=== PATIENT | female | born 1950 | race Caucasian/White ===

== ENCOUNTER 2017-10-19 16:41 | Emergency (ER) | payer OTHER ==
--- NOTE | 2017-10-19 17:55 | RAD REPORT ---
EXAM DESCRIPTION: RAD - Chest Single View - 10/19/2017 5:36 pm CLINICAL HISTORY: Hypertension COMPARISON: 04/20/2016 FINDINGS: Portable technique limits examination quality. The lungs are mildly emphysematous but grossly clear. The heart is upper limit of normal in size. No displaced fractures. IMPRESSION: No acute intrathoracic process suspected.
[2017-10-19 18:00] LABS: Absolute Lymphocytes (CBC) 1.8 K/uL (0.7-4.9); Absolute Monocytes 0.5 K/uL (0.1-1.3); Absolute Neutrophil 3.9 K/uL (1.8-8.0); Basophils % 0.9 % (0-1.3); Eosinophils % 3.4 % (0-4.4); Hematocrit 35.5 % (36.0-45.0); Lymphocytes % 27.7 % (15.3-44.8); MCH 24.9 pg (27.0-35.0); MCV 77.7 fL (80-100); MPV 8.8 fL (7.6-11.3); Monocytes % 8.3 % (3.3-12.3); RBC Red Blood Cell Count 4.57 M/uL (3.86-4.86)
[2017-10-19 18:04] LABS: Protime INR 0.99
[2017-10-19 18:11] LABS: Bicarbonate 27 mEq/L (21-31); Glucose Level 103 mg/dL (65-120); Potassium 4.2 mEq/L (3.6-5.0); Sodium Level 139 mEq/L (135-145)
[2017-10-19 18:17] LABS: ALT/SGPT 14 IU/L (10-60); AST/SGOT 22 IU/L (10-42); Albumin 4.2 g/dL (3.2-5.5); Alkaline Phosphatase 45 IU/L (42-121); BUN Blood Urea Nitrogen 21 mg/dL (6-20); Bilirubin Direct < 0.1 mg/dL (0-0.2); Bilirubin Total 0.5 mg/dL (0.3-1.2); Creatine Phosphokinase 91 IU/L (22-269); Magnesium 2.1 mg/dL (1.8-2.5); Protein, Total 7.9 g/dL (6.0-8.3)
[2017-10-19 18:20] LABS: CKMB Creatine Kinase MB 2.1 ng/ml (0.3-4.0)
--- NOTE | 2017-10-19 19:05 | EKG ---
Test Date: 2017-10-19 Test Time: 17:26:06 Records Officer: HYACINTH MEASUREMENT RESULTS: Intervals: Rate: 93 WI: 124 QRSD: 80 QT: 386 QTc: 479 Lamoni: P: 55 WI: 124 QRS: -36 T: 19 INTERPRETIVE STATEMENTS: Normal sinus rhythm Left axis deviation Minimal voltage criteria for LVH, may be normal variant Nonspecific ST abnormality Abnormal ECG Compared to ECG 04/20/2016 04:21:53 Left-axis deviation now present ST (T wave) deviation still present Electronically Signed On 10-19-17 19:05:05 CDT by Anthony Adams
[2017-10-19] MEDS ORDERED: METHYLPREDNISOLONE 125 MG INJ ONE (19:19)
[2017-10-19] MEDS ORDERED: IPRATROPIUM BROM 0.5MG/2.5ML ONE (19:19)
[2017-10-19] MEDS ORDERED: ALBUTEROL 2.5 MG/3 ML NEB SOL ONE (19:19)
[2017-10-19] MEDS ORDERED: ASPIRIN 81 MG CHEWABLE TABLET ONE (21:03)
--- NOTE | 2017-10-19 21:50 | EDPHYS ---
Physician Documentation [facility] Name: Ashley Teague Age: 67 yrs Sex: Female : 1950 Arrival Date: 10/19/2017 Time: 16:45 Bed 5 Private MD: ED Physician Rio Ledezma HPI: 10/19 17:25 This 67 yrs old Female presents to ER via Ambulatory with complaints of cp Shortness Of Breath. 17:25 The patient has shortness of breath with light activity. cp 17:25 Onset: The symptoms/episode began/occurred gradually, and became worse today. cp 17:25 Duration: The symptoms are continuous, and are steadily getting worse. Associated signs cp and symptoms: Pertinent negatives: chest pain, productive cough, diaphoresis, dizziness, fever, hemoptysis. Severity of symptoms: in the emergency department the symptoms are unchanged despite home interventions. Historical: - Allergies: 16:53 Percodan; hj 16:53 Sulfa (Sulfonamide Antibiotics); hj - Home Meds: 16:53 aspirin 81 mg Oral TbEC 1 tab once daily [Active]; atorvastatin 20 mg Oral tab 1 tab hj once daily [Active]; escitalopram oxalate 10 mg Oral tab 1 tab once daily [Active]; gabapentin 600 mg Oral tab 1 tab daily [Active]; hydrochlorothiazide 12.5 mg Oral cap 1 cap once daily [Active]; lisinopril 20 mg Oral tab 1 tab once daily [Active]; memantine 10 mg Oral tab 1 tab 2 times per day [Active]; - PMHx: 16:53 unstable HTN; hj - PSHx: 16:53 Appendectomy; left thumb joint spurs removed; 2 ganglion cyst removed from left wrist; hj Tubal ligation; two benign breast tumors removed; benign tumor to left knee; Hysterectomy; Bladder suspension; right heel calcaneal spur and release of plantar fascia; transfer of flexor digitorum longus tendon into the navicular along with tenodesis of flexor digitorum longus and posterior tibialis tendons both distal and proximal of the retinoculum; Left knee meniscus repair; right rotator cuff; right shoulder adhesions removed; left knee lateral release; 2nd right RTC, torn labrum; left knee replacement; heart cath; right knee; Lap band removed; Gastric Bypass; right cataract; - Immunization history:: Adult Immunizations up to date. - Social history:: Smoking status: Patient/guardian denies using tobacco. ROS: 17:30 Constitutional: Negative for body aches, chills, fever, poor PO intake. cp 17:30 Eyes: Negative for injury, pain, redness, and discharge, ENT: Negative for injury, cp pain, and discharge, Neck: Negative for injury, pain, and swelling, Cardiovascular: Negative for chest pain, palpitations, and edema. 17:30 Respiratory: Positive for shortness of breath, on exertion. Negative for cough, hemoptysis, wheezing. 17:30 Abdomen/GI: Negative for abdominal pain, nausea, vomiting, and diarrhea, constipation, anorexia, black/tarry stool, rectal bleeding. 17:30 Back: Negative for pain at rest, pain with movement, radiated pain. 17:30 : Negative for urinary symptoms. 17:30 MS/extremity: Negative for injury or acute deformity, paresthesias, swelling, tenderness. 17:30 Skin: Negative for cellulitis, rash. 17:30 Neuro: Negative for altered mental status, headache, syncope, near syncope, weakness. 17:30 All other systems are negative. Exam: 17:33 ECG was reviewed by the Attending Physician. cp 17:35 Head/Face: Normocephalic, atraumatic. Eyes: Pupils equal round and reactive to light, cp extra-ocular motions intact. Lids and lashes normal. Conjunctiva and sclera are non-icteric and not injected. Cornea within normal limits. Periorbital areas with no swelling, redness, or edema. ENT: Nares patent. No nasal discharge, no septal abnormalities noted. Tympanic membranes are normal and external auditory canals are clear. Oropharynx with no redness, swelling, or masses, exudates, or evidence of obstruction, uvula midline. Mucous membranes moist. Neck: Trachea midline, no thyromegaly or masses palpated, and no cervical lymphadenopathy. Supple, full range of motion without nuchal rigidity, or vertebral point tenderness. No Meningismus. Chest/axilla: Normal chest wall appearance and motion. Nontender with no deformity. No lesions are appreciated. 17:35 Constitutional: The patient appears in no acute distress, alert, awake, non-diaphoretic, non-toxic, well developed, well nourished, obese. 17:35 Cardiovascular: Rate: normal, Rhythm: regular, Pulses: Pulses are 2+ in right radial artery and left radial artery. Edema: is not appreciated, JVD: is not appreciated. 17:35 Respiratory: the patient does not display signs of respiratory distress, Respirations: labored breathing, is not present, intercostal retractions, are absent, shallow respirations, are not present, splinting, is not noted, tachypnea, is not appreciated, Breath sounds: decreased breath sounds, that are mild, throughout, stridor, is not appreciated, wheezing: is not appreciated. 17:35 Abdomen/GI: Inspection: obese Bowel sounds: active, all quadrants, Palpation: abdomen is soft and non-tender, in all quadrants, rebound tenderness, is not appreciated, voluntary guarding, is not appreciated, involuntary guarding, is not appreciated. 17:35 Back: pain, is absent, ROM is normal. 17:35 Musculoskeletal/extremity: Exam is negative for decreased range of motion, deformity, injury. 17:35 Skin: cellulitis, is not appreciated, no rash present. 17:35 Neuro: Orientation: to person, place \T\ time. Cerebellar function: is grossly normal, Motor: moves all fours, strength is normal, Sensation: no obvious gross deficits, Gait: is steady. Vital Signs: 16:54 BP 136 / 55; Pulse 99; Resp 18; Temp 98.4(TE); Pulse Ox 100% on R/A; Weight 108.86 kg; hj Height 5 ft. 8 in. (172.72 cm); 17:30 BP 136 / 73; Pulse 91; Resp 18 S; Pulse Ox 100% on R/A; jl7 18:14 BP 128 / 64; Pulse 88; Resp 17 S; Pulse Ox 100% on R/A; jl7 19:15 BP 131 / 63; Pulse 89; Pulse Ox 100% on R/A; Pain 0/10; bs1 19:56 BP 129 / 65; Pulse 103; Pulse Ox 100% on 5% Nebulizer Mask; bs1 20:09 Pulse 106; Pulse Ox 100% on R/A; cb2 20:12 Pulse 132; Pulse Ox 100% on R/A; cb2 20:15 BP 154 / 84 RA Sitting (auto/lg); Pulse 122 LA; Resp 20 S; Pulse Ox 100% ; cb2 21:45 BP 137 / 90; Pulse 103; Resp 17; Pulse Ox 99% on R/A; Pain 0/10; bs1 16:54 Body Mass Index 36.49 (108.86 kg, 172.72 cm) hj 20:12 pt walking in hallway cb2 MDM: 17:02 Patient medically screened. cp 18:00 Differential diagnosis: Anemia CHF exacerbation, Chronic Obstructive Pulmonary Disease cp Myocardial Infarction pulmonary edema, Pulmonary Embolism reactive airway disease, Unstable Angina. 20:40 Physician consultation: Ene Boswell MD was contacted at 20:40, regarding admission, cp patient's condition, and will see patient in ED, shortly. 20:57 ED course: VSS. Patient seen and evaluated by DR De La Rosa while in ED and felt stable cp for discharge with outpatient f/u with primary physician. Will recheck EKG and troponin and if negative discharge to home. 21:50 Data reviewed: vital signs, nurses notes, lab test result(s), EKG, radiologic studies, cp plain films, and as a result, I will discharge patient. 04 17:25 Order name: Basic Metabolic Panel; Complete Time: 18:46 cp 04/05 18:46 Interpretation: Normal except: BUN 21; CRE 1.41; GFR 37. cp / 17:25 Order name: BNP; Complete Time: 18:46 cp 0405 17:25 Order name: CBC with Diff; Complete Time: 18:46 cp 04/05 18:46 Interpretation: Normal except: HGB 11.4; HCT 35.5; MCV 77.7; MCH 24.9; RDW 17.4. cp 04/05 17:25 Order name: Ckmb; Complete Time: 18:46 cp 04/05 17:25 Order name: CPK; Complete Time: 18:46 cp 04/05 17:25 Order name: LFT's; Complete Time: 18:46 cp 04/05 18:48 Interpretation: Normal except: GLOB 3.7. cp /05 17:25 Order name: Magnesium; Complete Time: 18:46 cp 04/05 17:25 Order name: PT-INR; Complete Time: 18:46 cp 04/05 17:25 Order name: Ptt, Activated; Complete Time: 18:46 cp 04/05 17:25 Order name: Troponin (emerg Dept Use Only); Complete Time: 18:46 cp 04/ 17:25 Order name: XRAY Chest (1 view); Complete Time: 18:46 cp 10/19 18:47 Interpretation: Report review. cp 10/19 20:59 Order name: Troponin I; Complete Time: 21:49 cp 10/19 21:49 Interpretation: Reviewed. cp 10/19 17:25 Order name: EKG; Complete Time: 17:26 cp 10/19 17:25 Order name: Cardiac monitoring; Complete Time: 17:32 cp 10/19 17:25 Order name: EKG - Nurse/Tech; Complete Time: 17:32 cp 10/19 17:25 Order name: IV Saline Lock; Complete Time: 17:53 cp 10/19 17:25 Order name: Labs collected and sent; Complete Time: 17:53 cp 10/19 17:25 Order name: O2 Per Protocol; Complete Time: 17:32 cp 10/19 17:25 Order name: O2 Sat Monitoring; Complete Time: 17:32 cp 10/19 20:59 Order name: EKG; Complete Time: 20:59 cp 10/19 20:59 Order name: EKG - Nurse/Tech; Complete Time: 21:34 cp EC:33 Rate is 93 beats/min. Rhythm is regular. IA interval is normal. QRS interval is normal. cp QT interval is normal. Interpreted by me. Reviewed by me. Administered Medications: 19:05 Drug: Albuterol - atroVENT (3:1) (2.5 mg - 0.5 mg) 3 ml Route: Nebulizer; jl7 20:00 Follow up: Response: No adverse reaction bs1 19:06 Drug: SOLU-Medrol 125 mg Route: IVP; Site: left forearm; jl7 19:59 Follow up: Response: No adverse reaction bs1 20:48 Drug: Aspirin Chewable Tablet 324 mg Route: PO; bs1 20:52 Follow up: Response: No adverse reaction bs1 Disposition: 10/20 10:36 Co-signature as Attending Physician, Rio Ledezma MD I agree with the assessment and izzy plan of care. Disposition: 10/19/17 21:50 Discharged to Home. Impression: Shortness of breath. - Condition is Stable. - Discharge Instructions: Shortness of Breath, Aspirin and Your Heart. - Prescriptions for Prednisone 20 mg Oral Tablet - take 2 tablet by ORAL route once daily for 5 days start morning of 10-20-2017; 10 tablet. Albuterol Sulfate 90 mcg/actuation - inhale 1-2 puff by INHALATION route every 4-6 hours; 1 Inhaler. - Medication Reconciliation Form, Thank You Letter, Antibiotic Education, Prescription Opioid Use form. - Follow up: Private Physician; When: 2 - 3 days; Reason: Recheck today's complaints. - Problem is new. - Symptoms have improved. Signatures: Dispatcher [employer] EDRio Sow MD MD cha Joaquin, Henry RN RN hj Rio Eddy PA PA cp Leal, Jahala RN RN jl7 Bibiana Olsen RN RN bs1
--- NOTE | 2017-10-19 21:50 | ER ---
Nurse's Notes [facility] Name: Ashley Teague Age: 67 yrs Sex: Female : 1950 Arrival Date: 10/19/2017 Time: 16:45 Bed 5 Private MD: Diagnosis: Shortness of breath Presentation: 10/19 16:50 Presenting complaint: Patient states: i fell SOB, headache, specially when i walk 5 hj feet; denies fever and chills;. Transition of care: patient was not received from another setting of care. Onset of symptoms was October 19, 2017. Care prior to arrival: None. 16:50 Method Of Arrival: Ambulatory 16:50 Acuity: SANTIAGO 3 hj Triage Assessment: 16:53 General: Appears in no apparent distress. uncomfortable, Behavior is calm, cooperative, hj appropriate for age. Pain: Denies pain. Respiratory: Reports shortness of breath on exertion Onset: The symptoms/episode began/occurred yesterday, the patient has moderate shortness of breath. Historical: - Allergies: 16:53 Percodan; hj 16:53 Sulfa (Sulfonamide Antibiotics); hj - Home Meds: 16:53 aspirin 81 mg Oral TbEC 1 tab once daily [Active]; atorvastatin 20 mg Oral tab 1 tab hj once daily [Active]; escitalopram oxalate 10 mg Oral tab 1 tab once daily [Active]; gabapentin 600 mg Oral tab 1 tab daily [Active]; hydrochlorothiazide 12.5 mg Oral cap 1 cap once daily [Active]; lisinopril 20 mg Oral tab 1 tab once daily [Active]; memantine 10 mg Oral tab 1 tab 2 times per day [Active]; - PMHx: 16:53 unstable HTN; hj - PSHx: 16:53 Appendectomy; left thumb joint spurs removed; 2 ganglion cyst removed from left wrist; hj Tubal ligation; two benign breast tumors removed; benign tumor to left knee; Hysterectomy; Bladder suspension; right heel calcaneal spur and release of plantar fascia; transfer of flexor digitorum longus tendon into the navicular along with tenodesis of flexor digitorum longus and posterior tibialis tendons both distal and proximal of the retinoculum; Left knee meniscus repair; right rotator cuff; right shoulder adhesions removed; left knee lateral release; 2nd right RTC, torn labrum; left knee replacement; heart cath; right knee; Lap band removed; Gastric Bypass; right cataract; - Immunization history:: Adult Immunizations up to date. - Social history:: Smoking status: Patient/guardian denies using tobacco. Screenin:15 Abuse screen: Denies threats or abuse. Denies injuries from another. Nutritional jl7 screening: No deficits noted. Tuberculosis screening: No symptoms or risk factors identified. 19:42 Fall Risk None identified. bs1 Assessment: 16:53 Cardiovascular: Rhythm is. Respiratory: Airway is patent Respiratory effort is even, hj unlabored, Respiratory pattern is regular, symmetrical, 17:15 General: Appears in no apparent distress. uncomfortable, Behavior is calm, cooperative, jl7 appropriate for age. Pain: Complains of pain in headache Pain does not radiate. Pain currently is 5 out of 10 on a pain scale. at worst was 9 out of 10 on a pain scale. Quality of pain is described as aching, Pain began 1 day ago. Is intermittent. Neuro: Level of Consciousness is awake, alert, obeys commands, Oriented to person, place, time, situation. Cardiovascular: Heart tones S1 S2 present Patient's skin is warm and dry. Respiratory: Airway is patent Respiratory effort is even, labored, Respiratory pattern is symmetrical, tachypnea Breath sounds are clear bilaterally. the patient has moderate shortness of breath. GI: No signs and/or symptoms were reported involving the gastrointestinal system. : No signs and/or symptoms were reported regarding the genitourinary system. EENT: No signs and/or symptoms were reported regarding the EENT system. Derm: Skin is pink, warm \\T\\ dry. Musculoskeletal: No signs and/or symptoms reported regarding the musculoskeletal system. 19:00 General: Appears in no apparent distress. uncomfortable, Behavior is calm, cooperative, bs1 appropriate for age, flat. Pain: Complains of pain in headache Pain does not radiate. Pain currently is 4 out of 10 on a pain scale. Quality of pain is described as aching. Neuro: Level of Consciousness is awake, alert, obeys commands. Cardiovascular: Denies chest pain, Heart tones S1 S2 present Capillary refill < 3 seconds Patient's skin is warm and dry. Cardiovascular: Rhythm is regular. Cardiovascular: Denies Respiratory: Airway is patent Trachea midline Respiratory effort is even, unlabored, Respiratory pattern is regular, symmetrical, Breath sounds are clear bilaterally. GI: No signs and/or symptoms were reported involving the gastrointestinal system. : No signs and/or symptoms were reported regarding the genitourinary system. EENT: No signs and/or symptoms were reported regarding the EENT system. Derm: Skin is pink, warm \\T\\ dry. Musculoskeletal: No signs and/or symptoms reported regarding the musculoskeletal system. 20:00 Reassessment: Patient appears in no apparent distress at this time. No changes from bs1 previously documented assessment. Patient and/or family updated on plan of care and expected duration. Pain level reassessed. Patient is alert, oriented x 3, equal unlabored respirations, skin warm/dry/pink. Patient reports feeling upset, states " I do not believe the provider is taking me seriously, he interrupts me and is not listening to me, he needs to work on his bedside manner, I made a mistake coming here." Nurse reassured patient that we are waiting on more results and making sure she is stable and that I am here to talk if need be. 21:00 Reassessment: Patient appears in no apparent distress at this time. No changes from bs1 previously documented assessment. Patient and/or family updated on plan of care and expected duration. Pain level reassessed. Patient is alert, oriented x 3, equal unlabored respirations, skin warm/dry/pink. 21:50 Reassessment: No changes from previously documented assessment. Patient and/or family bs1 updated on plan of care and expected duration. Pain level reassessed. Patient is alert, oriented x 3, equal unlabored respirations, skin warm/dry/pink. Vital Signs: 16:54 BP 136 / 55; Pulse 99; Resp 18; Temp 98.4(TE); Pulse Ox 100% on R/A; Weight 108.86 kg; Height 5 ft. 8 in. (172.72 cm); 17:30 BP 136 / 73; Pulse 91; Resp 18 S; Pulse Ox 100% on R/A; jl7 18:14 BP 128 / 64; Pulse 88; Resp 17 S; Pulse Ox 100% on R/A; jl7 19:15 BP 131 / 63; Pulse 89; Pulse Ox 100% on R/A; Pain 0/10; bs1 19:56 BP 129 / 65; Pulse 103; Pulse Ox 100% on 5% Nebulizer Mask; bs1 20:09 Pulse 106; Pulse Ox 100% on R/A; cb2 20:12 Pulse 132; Pulse Ox 100% on R/A; cb2 20:15 BP 154 / 84 RA Sitting (auto/lg); Pulse 122 LA; Resp 20 S; Pulse Ox 100% ; cb2 21:45 BP 137 / 90; Pulse 103; Resp 17; Pulse Ox 99% on R/A; Pain 0/10; bs1 16:54 Body Mass Index 36.49 (108.86 kg, 172.72 cm) hj 20:12 pt walking in hallway [facility] ED Course: 16:45 Patient arrived in ED. rg4 16:51 Triage completed. hj 16:54 Arm band placed on left wrist. hj 17:02 Roni Garibay RN is Primary Nurse. jl7 17:02 Rio Eddy PA is PHCP. cp 17:02 Rio Ledezma MD is Attending Physician. cp 17:15 Patient has correct armband on for positive identification. Placed in gown. Bed in low jl7 position. Call light in reach. Side rails up X 1. conveyor monitor on. Pulse ox on. NIBP on. Warm blanket given. 17:32 EKG done, by on site wastewater systems technician. reviewed by Rio Ledezma MD. at1 17:35 X-ray completed. Portable x-ray completed in exam room. Patient tolerated procedure sw well. 17:36 XRAY Chest (1 view) In Process Unspecified. EDMS 17:40 Initial lab(s) drawn, by me, sent to lab. Inserted saline lock: 20 gauge in left jl7 forearm, using aseptic technique. Blood collected. 19:10 Report given to AV Mccarty. jl7 21:04 Repeat lab(s) drawn. by me, sent to lab. Troponin. bs1 22:05 No provider procedures requiring assistance completed. IV discontinued, bleeding bs1 controlled, No redness/swelling at site. Pressure dressing applied. Administered Medications: 19:05 Drug: Albuterol - atroVENT (3:1) (2.5 mg - 0.5 mg) 3 ml Route: Nebulizer; jl7 20:00 Follow up: Response: No adverse reaction bs1 19:06 Drug: SOLU-Medrol 125 mg Route: IVP; Site: left forearm; jl7 19:59 Follow up: Response: No adverse reaction bs1 20:48 Drug: Aspirin Chewable Tablet 324 mg Route: PO; bs1 20:52 Follow up: Response: No adverse reaction bs1 Outcome: 21:50 Discharge ordered by . cp 22:05 Discharged to home ambulatory. bs1 22:05 Condition: stable 22:05 Discharge instructions given to patient, Instructed on discharge instructions, follow up and referral plans. medication usage, Demonstrated understanding of instructions, follow-up care, medications, Prescriptions given X 2. 22:06 Patient left the ED. bs1 Signatures: Dispatcher [employer] EDMS Isatu sullivan, electrolog operator EKG Tat1 Anika Abebe Henry, RN RN Rio Eddy PA PA cp Garcia, Rubi rg4 Roni Garibay RN RN jl7 Michael Pinto Brittany, RN RN bs1 Corrections: (The following items were deleted from the chart) 16:56 16:54 Pulse 99bpm; Resp 18bpm; Pulse Ox 100% RA; Temp 98.4F Temporal; 108.86 kg; Height hj 5 ft. 8 in.; BMI: 36.4; hj 19:06 19:06 SOLU-Medrol 125 mg IVP in left antecubital jl7 jl7
--- NOTE | 2017-10-19 21:56 | P.CNS ---
Date of Consult: 10/19/17 Reason for Consult: dyspnea Requesting Physician: Rio Eddy Chief Complaint: progressing dyspnea History of Present Illness: Ms Abdi is a 67 years old woman with history of pulmonary HTN, obesity s/p gastric by-pass surgery, sleep apnea, who come to ED complaining of SOB. She states that since yesterday noticed more SOB with activity. She denied fever or chills. She has no more cough than usual. No chest pain. Her SOB improves when she rest. At arrival, her O2 Sat was 100% on RA, afebrile, lab work shows normal WBC count. CXR shows no acute abonormalities. Allergies oxycodone Allergy (Severe, Verified 06/07/15 19:13) Anaphylaxis oxycodone HCl [From Percodan] Allergy (Severe, Verified 05/18/14 23:09) Anaphylaxis oxycodone terephthalate [From Percodan] Allergy (Severe, Verified 05/18/14 23:09 ) Anaphylaxis Sulfa (Sulfonamide Antibiotics) [Sulfa(Sulfonamide Antibiotics)] Allergy (Mild, Verified 05/18/14 23:09) Hives/Rash Home Medications: Folic Acid 1 mg PO DAILY #30 tablet 05/21/14 Doxazosin [Cardura*] 0.5 mg PO DAILY #15 tab 06/09/15 - Past Medical/Surgical History Diabetic: No -: pulmonary hypertension -: peptic ulcer disease -: sleep apnea -: valve regurgitation -: deformed right kidney -: heel spur, 7knee surgeries with 3 of them knee replacements. -: appendectomy, BTL, hysterectomy. -: right ankle tendon reconstruction -: heart cath. -: right cataract surgery 01/2014 -: gastric bypass, band surgery, swan karrie. -: 2 breast tumor removedand neck1 lymph node removed, all benign -: mouth surgery - Family History Mother Medical History: Heart disease, Hypertension, Cancer Notes: phlebitis - Social History Alcohol use: Yes CD- Drugs: No Caffeine use: Yes Place of Residence: Home Review of Systems 10-point ROS is otherwise unremarkable Physical Examination General: Alert, In no apparent distress HEENT: Atraumatic, PERRLA, Mucous membr. moist/pink, EOMI, Sclerae nonicteric Neck: Supple, 2+ carotid pulse no bruit, No LAD, Without JVD or thyroid abnormality Respiratory: Clear to auscultation bilaterally, Normal air movement Cardiovascular: Normal S1 S2, No gallops Gastrointestinal: Normal bowel sounds, No tenderness Musculoskeletal: No tenderness Integumentary: No rashes Neurological: Normal gait, Normal speech, Normal tone, Normal affect Lymphatics: No axilla or inguinal lymphadenopathy Laboratory Data (last 24 hrs) 10/19/17 21:04: Troponin I < 0.03 10/19/17 17:40: PT 11.7, INR 0.99, APTT 28.2 10/19/17 17:40: WBC 6.6, Hgb 11.4 L, Hct 35.5 L, Plt Count 331 10/19/17 17:40: B-Natriuretic Peptide 14 10/19/17 17:40: Sodium 139, Potassium 4.2, BUN 21 H, Creatinine 1.41 H, Glucose 103, Magnesium 2.1, Total Bilirubin 0.5, AST 22, ALT 14, Alkaline Phosphatase 45 - Problems (1) Dyspnea Current Visit: Yes Status: Acute Qualifiers: Dyspnea type: dyspnea on exertion Qualified Code(s): R06.09 - Other forms of dyspnea (2) Pulmonary HTN Current Visit: Yes Status: Chronic Conclusions/Impression: The patient has normal WBC, trop I negative x 2, no acute infiltrates on CXR, no fever, at physical exam her lungs sound clear. At this point, the patient will not benefit from a hospital admission, since there is no evidence of an acute illnes to treat. I recommend to discharge the patient home and let her follow up by her foam caster in [place], within 1-2 days.
[2017-10-19 22:11] VITALS: TEMP 98.4; O2SAT 100
[2017-10-19 22:18] VITALS: BP 154/84
--- NOTE | 2017-10-20 06:31 | EKG ---
Test Date: 2017-10-19 Test Time: 21:11:36 Show Operations Supervisor: CAROLEE MEASUREMENT RESULTS: Intervals: Rate: 107 RI: 134 QRSD: 84 QT: 370 QTc: 493 [place]: P: 48 RI: 134 QRS: -47 T: 42 INTERPRETIVE STATEMENTS: Sinus tachycardia with occasional premature ventricular complexes Left anterior fascicular block Minimal voltage criteria for LVH, may be normal variant Nonspecific ST and T wave abnormality Abnormal ECG Compared to ECG 10/19/2017 17:26:06 Ventricular premature complex(es) now present Left anterior fascicular block now present Sinus rhythm no longer present Left-axis deviation no longer present ST (T wave) deviation still present Electronically Signed On 10-20-17 06:31:04 CDT by Anthony Adams
== END 2017-10-19 22:06 | disposition home or self-care (01) ==
LOC: ER 16:41
DX: R06.02 Shortness of breath (principal); R06.09 Other forms of dyspnea; I10 Essential (primary) hypertension; Z79.82 Long term (current) use of aspirin; Z88.2 Allergy status to sulfonamides; Z88.5 Allergy status to narcotic agent; Z98.84 Bariatric surgery status
CPT/HCPCS: 36415; 71045; 80048; 80076; 82550; 82553; 83735; 83880; 84484 ×2; 85025; 85610; 85730; 93005 ×2; 94640; 96374; 99285; J2930

== ENCOUNTER 2018-03-03 15:51 | Emergency (ER) | payer OTHER ==
[2018-03-03 17:18] LABS: Protime INR 0.93
[2018-03-03 17:19] LABS: Absolute Lymphocytes (CBC) 2.1 K/uL (0.7-4.9); Absolute Monocytes 0.5 K/uL (0.1-1.3); Eosinophils % 4.5 % (0-4.4); Hematocrit 35.8 % (36.0-45.0); Lymphocytes % 29.9 % (15.3-44.8); MCH 25.2 pg (27.0-35.0); MCV 77.4 fL (80-100); MPV 8.8 fL (7.6-11.3); Monocytes % 7.3 % (3.3-12.3); RBC Red Blood Cell Count 4.63 M/uL (3.86-4.86)
--- NOTE | 2018-03-03 17:23 | RAD REPORT ---
EXAM DESCRIPTION: [place] Single View03/03/2018 5:05 pm CLINICAL HISTORY: Shortness of breath COMPARISON: October 2017 FINDINGS: The lungs appear clear of acute infiltrate. The heart is borderline enlarged IMPRESSION: No acute abnormalities displayed
--- NOTE | 2018-03-03 17:23 | RAD REPORT ---
EXAM DESCRIPTION: CT - Head Brain Wo Cont - 03/03/2018 4:59 pm CLINICAL HISTORY: Headache COMPARISON: 2014 TECHNIQUE: Computed axial tomography of the head was obtained. IV contrast was not requested. All CT scans are performed using dose optimization technique as appropriate and may include automated exposure control or mA/KV adjustment according to patient size. FINDINGS: An intracranial bleed is not seen . The ventricles are normal in caliber. No extra-axial fluid collection is noted. Fluid within the sinuses/ mastoids is not seen. IMPRESSION: No acute intracranial abnormality is seen. If patient's symptoms persist MRI of the bra in would be recommended.
[2018-03-03 17:31] LABS: ALT/SGPT 18 U/L (12-78); AST/SGOT 20 U/L (15-37); Albumin 3.7 g/dL (3.4-5.0); Alkaline Phosphatase 54 U/L (45-117); BUN Blood Urea Nitrogen 19 mg/dL (7-18); Bicarbonate 31 mmol/L (21-32); Bilirubin Direct < 0.1 mg/dL (0-0.2); Bilirubin Total 0.3 mg/dL (0.2-1.0); Glucose Level 85 mg/dL (74-106); Magnesium 2.2 mg/dL (1.8-2.4); NT PRO-BNP 60 pg/mL (<125); Potassium 3.7 mmol/L (3.5-5.1); Protein, Total 8.1 g/dL (6.4-8.2); Sodium Level 140 mmol/L (136-145)
[2018-03-03] MEDS ORDERED: DIPHENHYDRAMINE 50 MG/ML VIAL ONE (17:36)
[2018-03-03] MEDS ORDERED: METOCLOPRAMIDE 10 MG/2mL INJ ONE (17:36)
[2018-03-03] MEDS ORDERED: KETOROLAC 30 MG/ML INJ ONE (17:37)
--- NOTE | 2018-03-03 18:11 | EDPHYS ---
Physician Documentation [facility] Name: Ashley Teague Age: 67 yrs Sex: Female : 1950 Arrival Date: 03/03/2018 Time: 15:55 Bed 20 Private MD: Kay Dudley ED Physician Johnny Hackett HPI: 03/03 18:00 This 67 yrs old Female presents to ER via Ambulatory with complaints of gs Weakness. 18:00 The patient presents to the emergency department with weakness of the entire body, gs generalized weakness. Onset: The symptoms/episode began/occurred suddenly, this morning, at 09:00. Context: occurred at home. Associated signs and symptoms: Pertinent positives: headache, weakness, [place] throbbing not worse ever.. Severity of symptoms: At their worst the symptoms were moderate in the emergency department the symptoms have improved markedly. The patient has experienced similar episodes in the past, a few times. The patient has not recently seen a physician. Historical: - Allergies: 16:14 Percodan; aj 16:14 Sulfa (Sulfonamide Antibiotics); aj - Home Meds: 16:14 aspirin 81 mg Oral TbEC 1 tab once daily [Active]; atorvastatin 20 mg Oral tab 1 tab aj once daily [Active]; escitalopram oxalate 10 mg Oral tab 1 tab once daily [Active]; gabapentin 600 mg Oral tab 1 tab daily [Active]; hydrochlorothiazide 12.5 mg Oral cap 1 cap once daily [Active]; lisinopril 20 mg Oral tab 1 tab once daily [Active]; 16:16 Magnesium Oxide Oral [Active]; aj - PMHx: 16:14 CVA; Hypertension; Vascular Dementia; aj 16:16 SVT; aj - PSHx: 16:16 Appendectomy; left thumb joint spurs removed; 2 ganglion cyst removed from left wrist; aj Tubal ligation; two benign breast tumors removed; benign tumor to left knee; Hysterectomy; Bladder suspension; right heel calcaneal spur and release of plantar fascia; transfer of flexor digitorum longus tendon into the navicular along with tenodesis of flexor digitorum longus and posterior tibialis tendons both distal and proximal of the retinoculum; Left knee meniscus repair; right rotator cuff; right shoulder adhesions removed; left knee lateral release; 2nd right RTC, torn labrum; left knee replacement; heart cath; right knee; Lap band removed; Gastric Bypass; right cataract; - Immunization history:: Adult Immunizations up to date. - Social history:: Smoking status: Patient/guardian denies using tobacco. - Ebola Screening: : Patient negative for fever greater than or equal to 101.5 degrees Fahrenheit, and additional compatible Ebola Virus Disease symptoms Patient denies exposure to infectious person Patient denies travel to an Ebola-affected area in the 21 days before illness onset No symptoms or risks identified at this time. ROS: 18:00 All other systems are negative. gs Exam: 18:00 Head/Face: Normocephalic, atraumatic. Eyes: Pupils equal round and reactive to light, gs extra-ocular motions intact. Lids and lashes normal. Conjunctiva and sclera are non-icteric and not injected. Cornea within normal limits. Periorbital areas with no swelling, redness, or edema. ENT: Nares patent. No nasal discharge, no septal abnormalities noted. Tympanic membranes are normal and external auditory canals are clear. Oropharynx with no redness, swelling, or masses, exudates, or evidence of obstruction, uvula midline. Mucous membranes moist. Neck: Trachea midline, no thyromegaly or masses palpated, and no cervical lymphadenopathy. Supple, full range of motion without nuchal rigidity, or vertebral point tenderness. No Meningismus. Chest/axilla: Normal chest wall appearance and motion. Nontender with no deformity. No lesions are appreciated. Cardiovascular: Regular rate and rhythm with a normal S1 and S2. No gallops, murmurs, or rubs. Normal PMI, no JVD. No pulse deficits. Respiratory: Lungs have equal breath sounds bilaterally, clear to auscultation and percussion. No rales, rhonchi or wheezes noted. No increased work of breathing, no retractions or nasal flaring. Abdomen/GI: Soft, non-tender, with normal bowel sounds. No distension or tympany. No guarding or rebound. No evidence of tenderness throughout. Back: No spinal tenderness. No costovertebral tenderness. Full range of motion. Skin: Warm, dry with normal turgor. Normal color with no rashes, no lesions, and no evidence of cellulitis. MS/ Extremity: Pulses equal, no cyanosis. Neurovascular intact. Full, normal range of motion. 18:00 Constitutional: The patient appears alert, awake. 18:00 ECG was reviewed by the Attending Physician. 18:00 Neuro: Orientation: is normal, Cranial nerves: CN II- XII are normal as tested, Cerebellar function: normal finger to nose testing, Motor: moves all fours, strength is normal, Sensation: is normal, no obvious gross deficits, Gait: is steady. Vital Signs: 16:17 BP 142 / 65; Pulse 96; Resp 18; Temp 98.4; Pulse Ox 100% on R/A; Weight 113.4 kg; aj Height 5 ft. 6 in. (167.64 cm); 17:16 BP 138 / 50; Pulse 85; Resp 16; Pulse Ox 97% on R/A; Pain 6/10; em 18:13 BP 137 / 71; Pulse 84; Resp 16; Pulse Ox 100% on R/A; Pain 3/10; em 16:17 Body Mass Index 40.35 (113.40 kg, 167.64 cm) aj NIH Stroke Scale Scores: 16:28 NIHSS Score: 0 em 16:28 NIHSS Score: 0 em 18:00 NIHSS Score: 0 gs MDM: 16:32 Patient medically screened. 18:00 Data reviewed: vital signs, nurses notes. Response to treatment: the patient's symptoms gs have resolved after treatment, and as a result, I will discharge patient. Physician consultation: Nicolas Chandra MD regarding consult, patient's condition, need to evaluate the patient as soon as possible, and will see patient Monday in office. ED course: ddx-cva,tia,gen weakness,migraine, complex migraine. 18:11 ED course: offered admission, dr chandra would see in hospital if she wanted to stay and would get eeg and mri on Monday, pt says symptoms resolve will go home. 03/03 16:35 Order name: Basic Metabolic Panel; Complete Time: 17:33 03/03 16:35 Order name: CBC with Diff; Complete Time: 17:33 03/03 16:35 Order name: LFT's; Complete Time: 17:33 03/03 16:35 Order name: Magnesium; Complete Time: 17:33 03/03 16:35 Order name: NT PRO-BNP; Complete Time: 17:33 03/03 16:35 Order name: PT-INR; Complete Time: 17:33 03/03 16:35 Order name: Troponin (emerg Dept Use Only); Complete Time: 17:33 gs 03/03 16:35 Order name: XRAY Chest (1 view); Complete Time: 17:33 gs 03/03 16:35 Order name: EKG; Complete Time: 16:36 gs 03/03 16:35 Order name: Cardiac monitoring; Complete Time: 16:51 gs 03/03 16:35 Order name: CT Head Brain wo Cont; Complete Time: 17:33 gs 03/03 16:35 Order name: EKG - Nurse/Tech; Complete Time: 16:51 gs 03/03 16:35 Order name: IV Saline Lock; Complete Time: 16:51 gs 03/03 16:35 Order name: Labs collected and sent; Complete Time: 16:51 gs 03/03 16:35 Order name: O2 Per Protocol; Complete Time: 16:51 gs 03/03 16:35 Order name: O2 Sat Monitoring; Complete Time: 16:51 gs 03/03 16:35 Order name: Urine Dipstick-Ancillary (obtain specimen); Complete Time: 18:13 gs EC:00 Rate is 89 beats/min. Rhythm is regular. NM interval is normal. QRS interval is normal. gs QT interval is normal. T waves are Flattened. No ST changes noted. Clinical impression: NSR w/ Non-specific ST/T Changes. Interpreted by me. Administered Medications: 17:38 Drug: Reglan 5 mg Route: IVP; Site: right forearm; aa5 18:13 Follow up: Response: No adverse reaction em 17:40 Drug: Benadryl 25 mg Route: IVP; Site: right forearm; aa5 18:13 Follow up: Response: No adverse reaction em 17:40 Drug: TORadol 15 mg Route: IVP; Site: right forearm; aa5 18:13 Follow up: Response: No adverse reaction; Pain is decreased em Point of Care Testing: Blood Glucose: 17:16 Blood Glucose: 72 mg/dL; em Ranges: Critical Glucose Levels:Adult <50 mg/dl or >400 mg/dl <40 mg/dl or >180 mg/dl Disposition: 03/03/18 18:10 Discharged to Home. Impression: Weakness, Headache. - Condition is Stable. - Discharge Instructions: General Headache Without Cause, Migraine Headache, Weakness. - Medication Reconciliation Form, Thank You Letter, Antibiotic Education, Prescription Opioid Use form. - Follow up: Nicolas Chandra MD; When: 2 - 3 days; Reason: Re-evaluation by your physician. NIH Stroke Scale - NIH Stroke Score Date: 03/03/2018 Time: 16:28 Total Score = 0 1a. Level of Consciousness (LOC) - 0(Alert) 1b. Level of Consciousness (LOC) (Year \T\ Age) - 0(Both) 1c. LOC Commands (Open \T\ Closes Eyes/Day Care Director) - 0(Both) 2. Best Gaze (Lateral Gaze Paresis) - 0(Normal) 3. Visual Field Loss - 0(No visual loss) 4. Facial Palsy - 0(Normal) 5a. Left Arm: Motor (10-second hold) - 0(No drift) 5b. Right Arm: Motor (10-second hold) - 0(No drift) 6a. Left Leg: Motor (5-second hold - always test supine) - 0(No drift) 6b. Right Leg: Motor (5-second hold - always test supine) - 0(No drift) 7. Limb Ataxia (finger/nose \T\ heel/matson - test with eyes open) - 0(Absent) 8. Sensory Loss (pinprick arms/legs/face) - 0(Normal) 9. Best Language: Aphasia (description/naming/reading) - 0(No aphasia) 10. Dysarthria (speech clarity - read or repeat words) - 0(Normal) 11. Extinction and Inattention (visual/tactile/auditory/spatial/personal) - 0(No abnormality) Initials: NIH Stroke Scale - NIH Stroke Score Date: 03/03/2018 Time: 16:28 Total Score = 0 1a. Level of Consciousness (LOC) - 0(Alert) 1b. Level of Consciousness (LOC) (Year \T\ Age) - 0(Both) 1c. LOC Commands (Open \T\ Closes Eyes/Day Care Director) - 0(Both) 2. Best Gaze (Lateral Gaze Paresis) - 0(Normal) 3. Visual Field Loss - 0(No visual loss) 4. Facial Palsy - 0(Normal) 5a. Left Arm: Motor (10-second hold) - 0(No drift) 5b. Right Arm: Motor (10-second hold) - 0(No drift) 6a. Left Leg: Motor (5-second hold - always test supine) - 0(No drift) 6b. Right Leg: Motor (5-second hold - always test supine) - 0(No drift) 7. Limb Ataxia (finger/nose \T\ heel/matson - test with eyes open) - 0(Absent) 8. Sensory Loss (pinprick arms/legs/face) - 0(Normal) 9. Best Language: Aphasia (description/naming/reading) - 0(No aphasia) 10. Dysarthria (speech clarity - read or repeat words) - 0(Normal) 11. Extinction and Inattention (visual/tactile/auditory/spatial/personal) - 0(No abnormality) Initials: NIH Stroke Scale - NIH Stroke Score Date: 03/03/2018 Time: 18:00 Total Score = 0 1a. Level of Consciousness (LOC) - 0(Alert) 1b. Level of Consciousness (LOC) (Year \T\ Age) - 0(Both) 1c. LOC Commands (Open \T\ Closes Eyes/Day Care Director) - 0(Both) 2. Best Gaze (Lateral Gaze Paresis) - 0(Normal) 3. Visual Field Loss - 0(No visual loss) 4. Facial Palsy - 0(Normal) 5a. Left Arm: Motor (10-second hold) - 0(No drift) 5b. Right Arm: Motor (10-second hold) - 0(No drift) 6a. Left Leg: Motor (5-second hold - always test supine) - 0(No drift) 6b. Right Leg: Motor (5-second hold - always test supine) - 0(No drift) 7. Limb Ataxia (finger/nose \T\ heel/matson - test with eyes open) - 0(Absent) 8. Sensory Loss (pinprick arms/legs/face) - 0(Normal) 9. Best Language: Aphasia (description/naming/reading) - 0(No aphasia) 10. Dysarthria (speech clarity - read or repeat words) - 0(Normal) 11. Extinction and Inattention (visual/tactile/auditory/spatial/personal) - 0(No abnormality) Initials: Signatures: Dispatcher [employer] Isatu Quintanilla RN RN aj Munoz, Edgar, FOOD SERVICE REPRESENTATIVE FOOD SERVICE REPRESENTATIVE em Perla Cota RN RN aa5 Johnny Hackett MD MD Corrections: (The following items were deleted from the chart) 18:27 18:10 03/03/2018 18:10 Discharged to Home. Impression: Weakness; Headache. em Condition is Stable. Forms are Medication Reconciliation Form, Thank You Letter, Antibiotic Education, Prescription Opioid Use. Follow up: Nicolas Chandra; When: 2 - 3 days; Reason: Re-evaluation by your physician. gs
--- NOTE | 2018-03-03 18:11 | ER ---
Nurse's Notes [facility] Name: Ashley Teague Age: 67 yrs Sex: Female : 1950 Arrival Date: 03/03/2018 Time: 15:55 Bed 20 Private MD: Kay Dudley Diagnosis: Weakness;Headache Presentation: 03/03 16:09 Presenting complaint: Patient states: Reports trouble keeping balance, headache, SOB, aj generalized weakness, and intermittent left upper arm pain since 0900 this AM. Patient drove herself to hospital and ambulated with steady gait to triage. Appears anxious in triage in NAD. Face symmetrical with strength intact. Transition of care: patient was not received from another setting of care. No acute neurological deficit is noted. Onset of symptoms was March 03, 2018 at 09:00. Risk Assessment: Do you want to hurt yourself or someone else? Patient reports no desire to harm self or others. Initial Sepsis Screen: Does the patient meet any 2 criteria? No. Patient's initial sepsis screen is negative. Does the patient have a suspected source of infection? No. Patient's initial sepsis screen is negative. Care prior to arrival: None. 16:09 Method Of Arrival: Ambulatory aj 16:09 Acuity: SANTIAGO 3 aj 16:28 Pre-hospital glucose is not applicable to this patient. em Triage Assessment: 16:16 The onset of the patients symptoms was March 03, 2018 at 09:00. General: Appears in no aj apparent distress. comfortable, Behavior is calm, cooperative, appropriate for age. Pain: Denies pain. Neuro: Level of Consciousness is awake, alert, obeys commands, Oriented to person, place, time, situation, Appropriate for age Certified Addiction Counselor are equal bilaterally Moves all extremities. Full function Gait is steady, Speech is normal, Facial symmetry appears normal, Pupils are PERRLA, Intact Reports weakness. Respiratory: Airway is patent Respiratory effort is even, unlabored, Respiratory pattern is regular, symmetrical. Derm: Skin is intact, is healthy with good turgor, Skin is pink, warm \\T\\ dry. normal. Stroke Activation: Symptom onset > 6 hours Physician: Stroke Attending; Name: ; Notified At: ; Arrived At: Physician: Chief Stroke Resident; Name: ; Notified At: ; Arrived At: Physician: Stroke Resident; Name: ; Notified At: ; Arrived At: Physician: ED Attending; Name: ; Notified At: ; Arrived At: Physician: ED Resident; Name: ; Notified At: ; Arrived At: Historical: - Allergies: 16:14 Percodan; aj 16:14 Sulfa (Sulfonamide Antibiotics); aj - Home Meds: 16:14 aspirin 81 mg Oral TbEC 1 tab once daily [Active]; atorvastatin 20 mg Oral tab 1 tab aj once daily [Active]; escitalopram oxalate 10 mg Oral tab 1 tab once daily [Active]; gabapentin 600 mg Oral tab 1 tab daily [Active]; hydrochlorothiazide 12.5 mg Oral cap 1 cap once daily [Active]; lisinopril 20 mg Oral tab 1 tab once daily [Active]; 16:16 Magnesium Oxide Oral [Active]; aj - PMHx: 16:14 CVA; Hypertension; Vascular Dementia; aj 16:16 SVT; aj - PSHx: 16:16 Appendectomy; left thumb joint spurs removed; 2 ganglion cyst removed from left wrist; aj Tubal ligation; two benign breast tumors removed; benign tumor to left knee; Hysterectomy; Bladder suspension; right heel calcaneal spur and release of plantar fascia; transfer of flexor digitorum longus tendon into the navicular along with tenodesis of flexor digitorum longus and posterior tibialis tendons both distal and proximal of the retinoculum; Left knee meniscus repair; right rotator cuff; right shoulder adhesions removed; left knee lateral release; 2nd right RTC, torn labrum; left knee replacement; heart cath; right knee; Lap band removed; Gastric Bypass; right cataract; - Immunization history:: Adult Immunizations up to date. - Social history:: Smoking status: Patient/guardian denies using tobacco. - Ebola Screening: : Patient negative for fever greater than or equal to 101.5 degrees Fahrenheit, and additional compatible Ebola Virus Disease symptoms Patient denies exposure to infectious person Patient denies travel to an Ebola-affected area in the 21 days before illness onset No symptoms or risks identified at this time. Screenin:28 Abuse screen: Denies threats or abuse. Nutritional screening: No deficits noted. em Tuberculosis screening: No symptoms or risk factors identified. Fall Risk None identified. Assessment: 16:28 General: Appears in no apparent distress. comfortable, Behavior is calm, cooperative. em Pain: Complains of pain in left bicep Pain currently is 6 out of 10 on a pain scale. Pain began 0930 this morning. Neuro: Level of Consciousness is awake, alert, obeys commands, Oriented to person, place, time, situation, Certified Addiction Counselor are equal bilaterally Moves all extremities. Gait is steady, Speech is normal, Facial symmetry appears normal, Intact Reports headache frontal area, "confusion" and "losing balance", dx with vascular dementia vs Alzheimer's. Denies blurred vision dizziness. Neuro: Reports weakness. Cardiovascular: Denies chest pain, Capillary refill < 3 seconds Patient's skin is warm and dry. Respiratory: Airway is patent Respiratory effort is even, unlabored, Respiratory pattern is regular, symmetrical. GI: Abdomen is obese, Patient currently denies nausea, vomiting. : No signs and/or symptoms were reported regarding the genitourinary system. EENT: No signs and/or symptoms were reported regarding the EENT system. Derm: Skin is intact, Skin is pink, warm \\T\\ dry. Musculoskeletal: Circulation, motion, and sensation intact. Capillary refill < 3 seconds, Range of motion: intact in all extremities. 16:28 Reassessment: I agree with assessment completed by Ryley Hummel LVN . aa5 17:13 Patient has been NPO before screening. The patient is alert, and able to follow em commands. The patient does not exhibit slurred or garbled speech. The patient is not exhibiting difficulty speaking. The patient does not exhibit difficulty understanding words. The patient is able to swallow own secretions with no drooling or need for suction. Patient tolerated one teaspoon of water. No drooling, immediate coughing, gurgling, or clearing of the throat was noted. The patient tolerated 90mL of water. No drooling, immediate coughing, gurgling, or clearing of the throat was noted. The patient passed the bedside swallow screening. Oral medications may be given as ordered. Contact Physician for further diet orders. 17:13 Provider notified of bedside swallow screening results: Johnny Hackett MD. T-PA em (Activase) Screening: Contraindications: Patient reports onset of signs and symptoms of stroke greater than 6 hours ago: Yes. 17:20 Reassessment: Patient appears in no apparent distress at this time. Patient is alert, em oriented x 3, equal unlabored respirations, skin warm/dry/pink. request something for pain, Dr. Hackett notified, new orders received. 18:14 Reassessment: Patient appears in no apparent distress at this time. Patient and/or em family updated on plan of care and expected duration. Pain level reassessed. Patient is alert, oriented x 3, equal unlabored respirations, skin warm/dry/pink. rates pain 4/10 Patient states feeling better. Patient states symptoms have improved. Vital Signs: 16:17 BP 142 / 65; Pulse 96; Resp 18; Temp 98.4; Pulse Ox 100% on R/A; Weight 113.4 kg; aj Height 5 ft. 6 in. (167.64 cm); 17:16 BP 138 / 50; Pulse 85; Resp 16; Pulse Ox 97% on R/A; Pain 6/10; em 18:13 BP 137 / 71; Pulse 84; Resp 16; Pulse Ox 100% on R/A; Pain 3/10; em 16:17 Body Mass Index 40.35 (113.40 kg, 167.64 cm) aj NIH Stroke Scale Scores: 16:28 NIHSS Score: 0 em 16:28 NIHSS Score: 0 em 18:00 NIHSS Score: 0 ED Course: 15:55 Patient arrived in ED. mr 15:56 Kay Dudley MD is Private Physician. mr 16:12 Triage completed. aj 16:17 Arm band placed on left wrist. Patient placed in an exam room. aj 16:19 Johnny Hackett MD is Attending Physician. gs 16:21 Ryley Hummel LVN is Primary Nurse. em 16:36 Inserted saline lock: 22 gauge in right forearm, using aseptic technique. Blood tl3 collected. 16:51 EKG done, by ED staff, reviewed by Johnny Hackett MD. ds4 16:58 CT Head Brain wo Cont In Process Unspecified. EDMS 17:04 XRAY Chest (1 view) In Process Unspecified. EDMS 17:17 Patient has correct armband on for positive identification. Placed in gown. Bed in low em position. Call light in reach. Side rails up X2. hydroelectric machinery mechanic on. Pulse ox on. NIBP on. 18:10 Nicolas Bridges MD is Referral Physician. gs 18:15 No provider procedures requiring assistance completed. em 18:22 IV discontinued, intact, bleeding controlled, No redness/swelling at site. Pressure em dressing applied. Administered Medications: 17:38 Drug: Reglan 5 mg Route: IVP; Site: right forearm; aa5 18:13 Follow up: Response: No adverse reaction em 17:40 Drug: Benadryl 25 mg Route: IVP; Site: right forearm; aa5 18:13 Follow up: Response: No adverse reaction em 17:40 Drug: TORadol 15 mg Route: IVP; Site: right forearm; aa5 18:13 Follow up: Response: No adverse reaction; Pain is decreased em Point of Care Testing: Blood Glucose: 17:16 Blood Glucose: 72 mg/dL; em Ranges: Outcome: 18:10 Discharge ordered by MD. gs 18:24 Discharged to home ambulatory. em 18:24 Condition: good 18:24 Discharge instructions given to patient, Instructed on discharge instructions, follow up and referral plans. Demonstrated understanding of instructions, follow-up care. 18:27 Patient left the ED. em NIH Stroke Scale - NIH Stroke Score Date: 03/03/2018 Time: 16:28 Total Score = 0 1a. Level of Consciousness (LOC) - 0(Alert) 1b. Level of Consciousness (LOC) (Year \\T\\ Age) - 0(Both) 1c. LOC Commands (Open \\T\\ Closes Eyes/Hand Reamer) - 0(Both) 2. Best Gaze (Lateral Gaze Paresis) - 0(Normal) 3. Visual Field Loss - 0(No visual loss) 4. Facial Palsy - 0(Normal) 5a. Left Arm: Motor (10-second hold) - 0(No drift) 5b. Right Arm: Motor (10-second hold) - 0(No drift) 6a. Left Leg: Motor (5-second hold - always test supine) - 0(No drift) 6b. Right Leg: Motor (5-second hold - always test supine) - 0(No drift) 7. Limb Ataxia (finger/nose \\T\\ heel/matson - test with eyes open) - 0(Absent) 8. Sensory Loss (pinprick arms/legs/face) - 0(Normal) 9. Best Language: Aphasia (description/naming/reading) - 0(No aphasia) 10. Dysarthria (speech clarity - read or repeat words) - 0(Normal) 11. Extinction and Inattention (visual/tactile/auditory/spatial/personal) - 0(No abnormality) Initials: em NIH Stroke Scale - NIH Stroke Score Date: 03/03/2018 Time: 16:28 Total Score = 0 1a. Level of Consciousness (LOC) - 0(Alert) 1b. Level of Consciousness (LOC) (Year \\T\\ Age) - 0(Both) 1c. LOC Commands (Open \\T\\ Closes Eyes/Hand Reamer) - 0(Both) 2. Best Gaze (Lateral Gaze Paresis) - 0(Normal) 3. Visual Field Loss - 0(No visual loss) 4. Facial Palsy - 0(Normal) 5a. Left Arm: Motor (10-second hold) - 0(No drift) 5b. Right Arm: Motor (10-second hold) - 0(No drift) 6a. Left Leg: Motor (5-second hold - always test supine) - 0(No drift) 6b. Right Leg: Motor (5-second hold - always test supine) - 0(No drift) 7. Limb Ataxia (finger/nose \\T\\ heel/matson - test with eyes open) - 0(Absent) 8. Sensory Loss (pinprick arms/legs/face) - 0(Normal) 9. Best Language: Aphasia (description/naming/reading) - 0(No aphasia) 10. Dysarthria (speech clarity - read or repeat words) - 0(Normal) 11. Extinction and Inattention (visual/tactile/auditory/spatial/personal) - 0(No abnormality) Initials: NIH Stroke Scale - NIH Stroke Score Date: 03/03/2018 Time: 18:00 Total Score = 0 1a. Level of Consciousness (LOC) - 0(Alert) 1b. Level of Consciousness (LOC) (Year \\T\\ Age) - 0(Both) 1c. LOC Commands (Open \\T\\ Closes Eyes/Hand Reamer) - 0(Both) 2. Best Gaze (Lateral Gaze Paresis) - 0(Normal) 3. Visual Field Loss - 0(No visual loss) 4. Facial Palsy - 0(Normal) 5a. Left Arm: Motor (10-second hold) - 0(No drift) 5b. Right Arm: Motor (10-second hold) - 0(No drift) 6a. Left Leg: Motor (5-second hold - always test supine) - 0(No drift) 6b. Right Leg: Motor (5-second hold - always test supine) - 0(No drift) 7. Limb Ataxia (finger/nose \\T\\ heel/matson - test with eyes open) - 0(Absent) 8. Sensory Loss (pinprick arms/legs/face) - 0(Normal) 9. Best Language: Aphasia (description/naming/reading) - 0(No aphasia) 10. Dysarthria (speech clarity - read or repeat words) - 0(Normal) 11. Extinction and Inattention (visual/tactile/auditory/spatial/personal) - 0(No abnormality) Initials: Signatures: Dispatcher [employer] EDIsatu Bansal, RN RN aj Suze Oviedo mr Hummel, Ryley, PROTOTYPE ASSEMBLER ELECTRONICS PROTOTYPE ASSEMBLER ELECTRONICS em Perla Cota, RN RN aa5 Marc Cassidy ds4 Johnny Hackett MD MD gs Lowrey, Tammy, RN RN tl3 Corrections: (The following items were deleted from the chart) 16:17 16:09 Presenting complaint: Patient states: Reports trouble keeping balance, aj headache, SOB, generalized weakness, and intermittent left arm numbness since 0900 this AM. Patient drove herself to hospital and ambulated with steady gait to triage. Appears anxious in triage in NAD. Face symmetrical with strength intact aj 18:14 17:20 Reassessment: Patient appears in no apparent distress at this time. em Patient is alert, oriented x 3, equal unlabored respirations, skin warm/dry/pink. Patient is alert/active/playful, equal unlabored respirations, skin warm/dry/pink. request something for pain, Dr. Hackett notified, new orders received em
[2018-03-03 18:33] VITALS: TEMP 98.4
[2018-03-03 18:35] VITALS: BP 137/71; O2SAT 100
--- NOTE | 2018-03-04 07:47 | EKG ---
Test Date: 2018-03-03 Test Time: 16:45:51 Dry Cleaner: JUANI MEASUREMENT RESULTS: Intervals: Rate: 89 NJ: 126 QRSD: 78 QT: 386 QTc: 469 Stafford: P: 30 NJ: 126 QRS: -35 T: -7 INTERPRETIVE STATEMENTS: Normal sinus rhythm Left axis deviation Moderate voltage criteria for LVH, may be normal variant Nonspecific ST abnormality Abnormal ECG Compared to ECG 10/19/2017 21:11:36 Left-axis deviation now present Sinus tachycardia no longer present Ventricular premature complex(es) no longer present Left anterior fascicular block no longer present ST (T wave) deviation still present Electronically Signed On 03-04-18 07:45:18 CDT by Tu Hewitt
== END 2018-03-03 18:27 | disposition home or self-care (01) ==
LOC: ER 15:51
DX: R53.1 Weakness (principal); R51 Headache; Z88.2 Allergy status to sulfonamides; Z88.8 Allergy status to other drugs, medicaments and biological substances; Z86.73 Personal history of transient ischemic attack (TIA), and cerebral infarction without residual deficits; I10 Essential (primary) hypertension; F01.50 Vascular dementia, unspecified severity, without behavioral disturbance, psychotic disturbance, mood disturbance, and anxiety; I47.1 Supraventricular tachycardia
CPT/HCPCS: 36415; 70450; 71045; 80048; 80076; 83735; 83880; 84484; 85025; 85610; 93005; J2765; 82962; 96374; 96375; 99284

== ENCOUNTER 2018-05-28 16:45 | Emergency (ER) | payer OTHER ==
[2018-05-28 18:27] LABS: Absolute Lymphocytes (CBC) 1.3 K/uL (0.7-4.9); Absolute Monocytes 0.3 K/uL (0.1-1.3); Absolute Neutrophil 6.3 K/uL (1.8-8.0); Basophils % 0.9 % (0-1.3); Eosinophils % 1.9 % (0-4.4); Hematocrit 34.6 % (36.0-45.0); MCH 25.5 pg (27.0-35.0); MCV 79.4 fL (80-100); MPV 8.8 fL (7.6-11.3); RBC Red Blood Cell Count 4.36 M/uL (3.86-4.86)
[2018-05-28 18:34] LABS: Protime INR 1.1
[2018-05-28 18:37] LABS: ALT/SGPT 14 U/L (12-78); AST/SGOT 14 U/L (15-37); Albumin 3.4 g/dL (3.4-5.0); Alkaline Phosphatase 52 U/L (45-117); BUN Blood Urea Nitrogen 13 mg/dL (7-18); Bicarbonate 28 mmol/L (21-32); Bilirubin Direct < 0.1 mg/dL (0-0.2); Bilirubin Total 0.3 mg/dL (0.2-1.0); Glucose Level 116 mg/dL (74-106); Lipase 90 U/L (73-393); Potassium 3.9 mmol/L (3.5-5.1); Sodium Level 141 mmol/L (136-145)
[2018-05-28] MEDS ORDERED: PANTOPRAZOLE 40 MG INJ ONE (18:40)
[2018-05-28] MEDS ORDERED: MORPHINE 4 MG/ML SYR ONE (18:40)
[2018-05-28] MEDS ORDERED: NA CHLORIDE 0.9% 1,000 ML ONE (18:40)
[2018-05-28] MEDS ORDERED: ONDANSETRON 4 MG/2 ML VIAL ONE (18:40)
[2018-05-28 18:46] LABS: Magnesium 2.4 mg/dL (1.8-2.4); NT PRO-BNP 102 pg/mL (<125); Troponin (Emerg Dept Use Only) < 0.02 ng/mL (0.0-0.045)
[2018-05-28] MEDS ORDERED: FENTANYL CITR 100 MCG/2 ML ONE (19:02)
--- NOTE | 2018-05-28 19:59 | RAD REPORT ---
EXAM DESCRIPTION: CT - Angio Aorta For Dissection - 05/28/2018 7:31 pm CLINICAL HISTORY: . Chest pain/abdominal pain/shortness of breath COMPARISON: None TECHNIQUE: Computed tomography angiography of the chest, abdomen pelvis were obtained. 100 cc Isovue 370 was administered intravenously. Coronal and sagittal reconstruction were performed. MIP 3D reconstruction was performed All CT scans are performed using dose optimization technique as appropriate and may include automated exposure control or mA/KV adjustment according to patient size. FINDINGS: An aortic dissection is not seen. An aortic aneurysm is not displayed. Bovine aortic The celiac, SMA and ANA MARIA are patent . A lung consolidation is not present. A pericardial effusion is not seen. A pleural effusion is not n oted. The liver,spleen, pancreas adrenals kidneys demonstrate no significant abnormality. A gastric bypass. The wall of the stomach is thickened. . There no evidence diverticulitis. No ascite s is noted. Very small ventral hernia contains fat IMPRESSION: Negative for an aortic dissection. Thickening of the gastric wall may indicate a gastritis
--- NOTE | 2018-05-28 19:59 | RAD REPORT ---
EXAM DESCRIPTION: Blaire Single View05/28/2018 6:23 pm CLINICAL HISTORY: Shortness of breath COMPARISON: February 2018 FINDINGS: The lungs appear clear of acute infiltrate. The heart is borderline enlarged IMPRESSION: No acute abnormalities displayed
--- NOTE | 2018-05-28 20:44 | ER ---
Nurse's Notes [facility] Name: Ashley Teague Age: 67 yrs Sex: Female : 1950 Arrival Date: 05/28/2018 Time: 16:49 Bed 16 Private MD: Kay Dudley Diagnosis: Abdominal tenderness;Functional dyspepsia;Gastritis, unspecified;Gastritis, unspecified, without bleeding Presentation: 05/28 16:52 Presenting complaint: Patient states: dyspnea with breathing, pain under left breast, sv nausea, pain worse after eating, and epigastric pain x 2 days. Transition of care: patient was not received from another setting of care. Onset of symptoms was May 26, 2018. Care prior to arrival: None. 16:52 Method Of Arrival: Ambulatory sv 16:52 Acuity: SANTIAGO 3 sv 19:10 Risk Assessment: Do you want to hurt yourself or someone else? Patient reports no lp1 desire to harm self or others. Initial Sepsis Screen: Does the patient meet any 2 criteria? No. Patient's initial sepsis screen is negative. Does the patient have a suspected source of infection? No. Patient's initial sepsis screen is negative. Triage Assessment: 16:57 General: Appears in no apparent distress. uncomfortable, obese, Behavior is calm, sv cooperative, appropriate for age. Pain: Complains of pain in epigastric area and left upper quadrant Pain currently is 5 out of 10 on a pain scale. Neuro: Level of Consciousness is awake, alert, obeys commands, Oriented to person, place, time, situation, Moves all extremities. Full function. Respiratory: Respiratory effort is even, unlabored, Respiratory pattern is regular, symmetrical. GI: Reports upper abdominal pain, nausea. Historical: - Allergies: 16:56 Percodan; sv 16:56 Sulfa (Sulfonamide Antibiotics); sv - Home Meds: 19:12 aspirin 81 mg Oral TbEC 1 tab once daily [Active]; atorvastatin 20 mg Oral tab 1 tab lp1 once daily [Active]; escitalopram oxalate 10 mg Oral tab 1 tab once daily [Active]; gabapentin 600 mg Oral tab 1 tab daily [Active]; hydrochlorothiazide 12.5 mg Oral cap 1 cap once daily [Active]; lisinopril 20 mg Oral tab 1 tab once daily [Active]; Magnesium Oxide Oral [Active]; - PMHx: 16:56 CVA; Hypertension; SVT; VASCULAR DEMENTIA; sv - PSHx: 16:56 Appendectomy; left thumb joint spurs removed; Tubal ligation; 2 ganglion cyst removed sv from left wrist; two benign breast tumors removed; benign tumor to left knee; Hysterectomy; Bladder suspension; right knee; right heel calcaneal spur and release of plantar fascia; transfer of flexor digitorum longus tendon into the navicular along with tenodesis of flexor digitorum longus and posterior tibialis tendons both distal and proximal of the retinoculum; Left knee meniscus repair; right rotator cuff; right shoulder adhesions removed; left knee lateral release; 2nd right RTC, torn labrum; left knee replacement; heart cath; Lap band removed; Gastric Bypass; right cataract; - Immunization history:: Flu vaccine is up to date. - Social history:: Smoking status: Patient/guardian denies using tobacco. - Ebola Screening: : No symptoms or risks identified at this time. Screenin:09 Abuse screen: Denies threats or abuse. Denies injuries from another. Nutritional lp1 screening: No deficits noted. Tuberculosis screening: No symptoms or risk factors identified. Fall Risk None identified. Assessment: 17:40 General: Appears in no apparent distress. comfortable, well groomed, well developed, sg well nourished, Behavior is calm, cooperative, appropriate for age. Pain: Complains of pain in left upper quadrant and epigastric area Quality of pain is described as aching, sharp. Cardiovascular: Capillary refill is brisk in bilateral fingers Patient's skin is warm and dry. Chest pain is denied. Respiratory: Airway is patent Respiratory effort is even, unlabored, Respiratory pattern is regular, symmetrical. GI: Abdomen is round non-distended, obese, Bowel sounds present X 4 quads. Abd is soft and non tender X 4 quads. Reports upper abdominal pain. : No signs and/or symptoms were reported regarding the genitourinary system. EENT: No signs and/or symptoms were reported regarding the EENT system. Derm: Skin is pink, warm \T\ dry. 19:08 Reassessment: Patient appears in no apparent distress at this time. Patient and/or lp1 family updated on plan of care and expected duration. Pain level reassessed. Patient is alert, oriented x 3, equal unlabored respirations, skin warm/dry/pink. Patient aware of pending lab results;. Pain: Complains of pain in epigastric area and left upper quadrant. 19:33 Reassessment: Patient returned from CT at this time. lp1 20:31 Reassessment: Patient appears in no apparent distress at this time. No changes from lp1 previously documented assessment. Patient is alert, oriented x 3, equal unlabored respirations, skin warm/dry/pink. aware of pending CT results Patient denies pain at this time. 21:19 Reassessment: Patient appears in no apparent distress at this time. Patient and/or lp1 family updated on plan of care and expected duration. Pain level reassessed. Patient is alert, oriented x 3, equal unlabored respirations, skin warm/dry/pink. Patient states feeling better. Vital Signs: 16:56 BP 127 / 70; Pulse 101; Resp 20; Temp 98.6; Pulse Ox 98% ; Weight 108.86 kg; Height 5 sv ft. 6 in. (167.64 cm); Pain 5/10; 19:12 BP 140 / 59; Pulse 86; Resp 18; Pulse Ox 98% on R/A; lp1 20:00 BP 144 / 88; Pulse 86; Resp 18; Pulse Ox 99% on R/A; lp1 21:00 BP 130 / 70; Pulse 85; Resp 18; Pulse Ox 98% on R/A; Pain 2/10; lp1 16:56 Body Mass Index 38.74 (108.86 kg, 167.64 cm) sv ED Course: 16:49 Patient arrived in ED. dl4 16:50 Kay Dudley MD is Private Physician. dl4 16:54 Triage completed. sv 16:57 Arm band placed on. sv 17:22 Hasmukh Judge, AV is Primary Nurse. sg 18:00 Rio Ledezma MD is Attending Physician. izzy 18:13 Oral contrast given. vr 18:24 XRAY Chest (1 view) In Process Unspecified. EDMS 19:01 Notified ED physician of a critical lab result(s). D-Dimer [id number] Dr Ledezma notified. bb 19:10 Patient has correct armband on for positive identification. Placed in gown. Bed in low lp1 position. Call light in reach. social work professor on. Pulse ox on. NIBP on. 19:[address] via wheelchair. vr 19:27 IV is patent, with fluids infusing freely, 22g to right AC. lp1 19:31 CT Aorta for Dissection In Process Unspecified. EDMS 20:44 Kay Dudley MD is Referral Physician. izzy 20:44 Blas Loredo MD is Referral Physician. izzy 21:19 No provider procedures requiring assistance completed. IV discontinued, No lp1 redness/swelling at site. Pressure dressing applied. Administered Medications: 18:53 Not Given (Duplicate Order): morphine 4 mg IVP once izzy 18:55 Drug: ProTONIX 40 mg Route: IVP; Site: right antecubital; sg 19:30 Follow up: Response: No adverse reaction lp1 19:02 Drug: fentaNYL (PF) 25 mcg Route: IVP; Site: right antecubital; sg 19:40 Follow up: Response: Pain is decreased lp1 19:04 Drug: NS 0.9% 500 ml Route: IV; Rate: bolus; Site: right antecubital; sg 19:40 Follow up: IV Status: Completed infusion; IV Intake: 500ml lp1 19:05 Drug: Zofran 4 mg Route: IVP; Site: right antecubital; sg 21:20 Follow up: Response: Nausea is decreased lp1 Intake: 19:40 IV: 500ml; Total: 500ml. lp1 Outcome: 20:44 Discharge ordered by . izzy 21:19 Discharged to home ambulatory. lp1 21:19 Condition: good 21:19 Discharge instructions given to patient, Instructed on discharge instructions, follow up and referral plans. medication usage, Demonstrated understanding of instructions, follow-up care, medications, Prescriptions given X 4. 21:21 Patient left the ED. lp1 Signatures: Dispatcher [employer] Patricia Martinez RN RN sv Gay, Steven, RN RN sg Anderson, Corey, MD MD cha Ballard, Brenda, RN RN bb Davis, Victoria Rosie Call RN RN lp1 Robert Sue dl4 Corrections: (The following items were deleted from the chart) 16:54 16:52 Presenting complaint: Patient states: dyspnea with breathing, pain under left sv breast, and epigastric pain x 2 days sv 16:58 16:56 Pulse 101bpm; Resp 20bpm; Pulse Ox 98%; Temp 98.6F; 108.86 kg; Height 5 ft. 6 sv in.; BMI: 38.7; Pain 5/10; sv
--- NOTE | 2018-05-28 20:44 | EDPHYS ---
Physician Documentation [facility] Name: Ashley Teague Age: 67 yrs Sex: Female : 1950 Arrival Date: 05/28/2018 Time: 16:49 Bed 16 Private MD: Kay Dudley ED Physician Rio Ledezma HPI: 05/28 18:12 This 67 yrs old Female presents to ER via Ambulatory with complaints of izzy Abdominal Pain. 18:12 The patient presents with abdominal pain in the epigastric area, in the upper abdomen, izzy abdominal distention in the upper abdomen. Onset: The symptoms/episode began/occurred 5 day(s) ago. The symptoms do not radiate. Associated signs and symptoms: none. The symptoms are described as constant, crampy. Modifying factors: The symptoms are alleviated by nothing, the symptoms are aggravated by breathing deeply, food, movement, pressure. Severity of pain: At its worst the pain was mild moderate in the emergency department the pain is unchanged. The patient has not experienced similar symptoms in the past. Historical: - Allergies: 16:56 Percodan; sv 16:56 Sulfa (Sulfonamide Antibiotics); sv - Home Meds: 19:12 aspirin 81 mg Oral TbEC 1 tab once daily [Active]; atorvastatin 20 mg Oral tab 1 tab lp1 once daily [Active]; escitalopram oxalate 10 mg Oral tab 1 tab once daily [Active]; gabapentin 600 mg Oral tab 1 tab daily [Active]; hydrochlorothiazide 12.5 mg Oral cap 1 cap once daily [Active]; lisinopril 20 mg Oral tab 1 tab once daily [Active]; Magnesium Oxide Oral [Active]; - PMHx: 16:56 CVA; Hypertension; SVT; VASCULAR DEMENTIA; sv - PSHx: 16:56 Appendectomy; left thumb joint spurs removed; Tubal ligation; 2 ganglion cyst removed sv from left wrist; two benign breast tumors removed; benign tumor to left knee; Hysterectomy; Bladder suspension; right knee; right heel calcaneal spur and release of plantar fascia; transfer of flexor digitorum longus tendon into the navicular along with tenodesis of flexor digitorum longus and posterior tibialis tendons both distal and proximal of the retinoculum; Left knee meniscus repair; right rotator cuff; right shoulder adhesions removed; left knee lateral release; 2nd right RTC, torn labrum; left knee replacement; heart cath; Lap band removed; Gastric Bypass; right cataract; - Immunization history:: Flu vaccine is up to date. - Social history:: Smoking status: Patient/guardian denies using tobacco. - Ebola Screening: : No symptoms or risks identified at this time. ROS: 18:13 Constitutional: Negative for fever, chills, and weight loss, Eyes: Negative for injury, izzy pain, redness, and discharge, ENT: Negative for injury, pain, and discharge, Neck: Negative for injury, pain, and swelling, Cardiovascular: Negative for chest pain, palpitations, and edema, Back: Negative for injury and pain, : Negative for injury, bleeding, discharge, and swelling, MS/Extremity: Negative for injury and deformity, Skin: Negative for injury, rash, and discoloration, Neuro: Negative for headache, weakness, numbness, tingling, and seizure, Psych: Negative for depression, anxiety, suicide ideation, homicidal ideation, and hallucinations, Allergy/Immunology: Negative for hives, rash, and allergies, Endocrine: Negative for neck swelling, polydipsia, polyuria, polyphagia, and marked weight changes, Hematologic/Lymphatic: Negative for swollen nodes, abnormal bleeding, and unusual bruising. 18:13 Respiratory: Positive for cough, with no reported sputum. 18:13 Abdomen/GI: Positive for abdominal pain, Negative for nausea and vomiting. Exam: 18:13 Constitutional: This is a well developed, well nourished patient who is awake, alert, izzy and in no acute distress. Head/Face: Normocephalic, atraumatic. Eyes: Pupils equal round and reactive to light, extra-ocular motions intact. Lids and lashes normal. Conjunctiva and sclera are non-icteric and not injected. Cornea within normal limits. Periorbital areas with no swelling, redness, or edema. ENT: Nares patent. No nasal discharge, no septal abnormalities noted. Tympanic membranes are normal and external auditory canals are clear. Oropharynx with no redness, swelling, or masses, exudates, or evidence of obstruction, uvula midline. Mucous membranes moist. Neck: Trachea midline, no thyromegaly or masses palpated, and no cervical lymphadenopathy. Supple, full range of motion without nuchal rigidity, or vertebral point tenderness. No Meningismus. Chest/axilla: Normal chest wall appearance and motion. Nontender with no deformity. No lesions are appreciated. Cardiovascular: Regular rate and rhythm with a normal S1 and S2. No gallops, murmurs, or rubs. Normal PMI, no JVD. No pulse deficits. Respiratory: Lungs have equal breath sounds bilaterally, clear to auscultation and percussion. No rales, rhonchi or wheezes noted. No increased work of breathing, no retractions or nasal flaring. Back: No spinal tenderness. No costovertebral tenderness. Full range of motion. Skin: Warm, dry with normal turgor. Normal color with no rashes, no lesions, and no evidence of cellulitis. MS/ Extremity: Pulses equal, no cyanosis. Neurovascular intact. Full, normal range of motion. Neuro: Awake and alert, GCS 15, oriented to person, place, time, and situation. Cranial nerves II-XII grossly intact. Motor strength 5/5 in all extremities. Sensory grossly intact. Cerebellar exam normal. Normal gait. Psych: Awake, alert, with orientation to person, place and time. Behavior, mood, and affect are within normal limits. 18:13 Abdomen/GI: Inspection: abdomen appears normal, Bowel sounds: normal, Palpation: moderate abdominal tenderness, Liver: no appreciated palpable abnormalities, Hernia: not appreciated. Vital Signs: 16:56 BP 127 / 70; Pulse 101; Resp 20; Temp 98.6; Pulse Ox 98% ; Weight 108.86 kg; Height 5 sv ft. 6 in. (167.64 cm); Pain 5/10; 19:12 BP 140 / 59; Pulse 86; Resp 18; Pulse Ox 98% on R/A; lp1 20:00 BP 144 / 88; Pulse 86; Resp 18; Pulse Ox 99% on R/A; lp1 21:00 BP 130 / 70; Pulse 85; Resp 18; Pulse Ox 98% on R/A; Pain 2/10; lp1 16:56 Body Mass Index 38.74 (108.86 kg, 167.64 cm) sv MDM: 18:00 Patient medically screened. [facility] 18:16 Data reviewed: vital signs, nurses notes, lab test result(s), EKG, radiologic studies, [facility] CT scan, plain films. 05/28 17:53 Order name: Basic Metabolic Panel; Complete Time: 19:55 sg 05/28 17:53 Order name: CBC with Diff; Complete Time: 19:55 05/28 17:53 Order name: Creatinine for Radiology; Complete Time: 19:55 05/28 17:53 Order name: Hepatic Function; Complete Time: 19:55 05/28 17:53 Order name: Lipase; Complete Time: 19:55 05/28 18:08 Order name: Magnesium; Complete Time: 19:55 [facility] 05/28 18:08 Order name: NT PRO-BNP; Complete Time: 19:55 [facility] 05/28 18:08 Order name: PT-INR; Complete Time: 19:55 [facility] 05/28 18:08 Order name: Troponin (emerg Dept Use Only); Complete Time: 19:55 [facility] 05/28 18:08 Order name: XRAY Chest (1 view); Complete Time: 20:02 [facility] 05/28 18:10 Order name: D-Dimer; Complete Time: 19:55 [facility] 05/28 19:14 Order name: CT Aorta for Dissection; Complete Time: 20:02 [facility] 05/28 17:53 Order name: IV Saline Lock; Complete Time: 17:53 05/28 17:53 Order name: Labs collected and sent; Complete Time: 17:53 05/28 18:08 Order name: EKG; Complete Time: 18:09 [facility] 05/28 18:08 Order name: Cardiac monitoring; Complete Time: 18:56 [facility] 05/28 18:08 Order name: EKG - Nurse/Tech; Complete Time: 18:56 [facility] 05/28 18:08 Order name: O2 Per Protocol; Complete Time: 18:56 [facility] 05/28 18:08 Order name: O2 Sat Monitoring; Complete Time: 18:56 [facility] Administered Medications: 18:53 Not Given (Duplicate Order): morphine 4 mg IVP once [facility] 18:55 Drug: ProTONIX 40 mg Route: IVP; Site: right antecubital; sg 19:30 Follow up: Response: No adverse reaction lp1 19:02 Drug: fentaNYL (PF) 25 mcg Route: IVP; Site: right antecubital; sg 19:40 Follow up: Response: Pain is decreased lp1 19:04 Drug: NS 0.9% 500 ml Route: IV; Rate: bolus; Site: right antecubital; sg 19:40 Follow up: IV Status: Completed infusion; IV Intake: 500ml lp1 19:05 Drug: Zofran 4 mg Route: IVP; Site: right antecubital; sg 21:20 Follow up: Response: Nausea is decreased lp1 Disposition: 05/28/18 20:44 Discharged to Home. Impression: Abdominal tenderness, Functional dyspepsia, Gastritis, unspecified, Gastritis, unspecified, without bleeding. - Condition is Stable. - Discharge Instructions: Abdominal Pain, Adult, Gastritis, Adult, Nausea and Vomiting, Adult, Gastritis, Adult, [id number], Abdominal Pain, Adult, [id number]. - Prescriptions for Bentyl 20 mg Oral Tablet - take 1 tablet by ORAL route every 6 hours As needed; 20 tablet. Protonix 40 mg Oral Tablet - take 1 tablet by ORAL route once daily; 30 tablet. Tylenol- Codeine #3 300-30 mg Oral Tablet - take 2 tablets by ORAL route every 6 hours As needed; 20 tablet. Zofran 4 mg Oral Tablet - take 1 tablet by ORAL route every 12 hours As needed; 20 tablet. - Medication Reconciliation Form, Thank You Letter, Antibiotic Education, Prescription Opioid Use form. - Follow up: Kay Dudley; When: 2 - 3 days; Reason: Recheck today's complaints, Continuance of care, Re-evaluation by your physician. Follow up: Blas Loredo MD; When: 2 - 3 days; Reason: Recheck today's complaints, Continuance of care, Re-evaluation by your physician. - Problem is new. - Symptoms have improved. Signatures: Dispatcher [employer] [facility] Patricia Barajas RN RN sv Gay, Steven, RN RN sg Anderson, Corey, MD MD cha Pena, Laura, RN RN lp1 Corrections: (The following items were deleted from the chart) 19:13 18:10 Abdomen Pelvis W Con+CT.RAD.BRZ ordered. [facility] 20:45 20:44 05/28/2018 20:44 Discharged to Home. Impression: Abdominal tenderness; Functional izzy dyspepsia; Gastritis, unspecified; Gastritis, unspecified, without bleeding. Condition is Stable. Discharge Instructions: Abdominal Pain, Adult, Nausea and Vomiting, Adult, Abdominal Pain, Adult, [id number]. Prescriptions for Bentyl 20 mg Oral Tablet - take 1 tablet by ORAL route every 6 hours As needed; 20 tablet, Protonix 40 mg Oral Tablet - take 1 tablet by ORAL route once daily; 30 tablet, Tylenol-Codeine #3 300-30 mg Oral Tablet - take 2 tablets by ORAL route every 6 hours As needed; 20 tablet, Zofran 4 mg Oral Tablet - take 1 tablet by ORAL route every 12 hours As needed; 20 tablet. and Forms are Medication Reconciliation Form, Thank You Letter, Antibiotic Education, Prescription Opioid Use. Follow up: Kay Dudley; When: 2 - 3 days; Reason: Recheck today's complaints, Continuance of care, Re-evaluation by your physician. Problem is new. Symptoms have improved. [facility] 21:21 20:45 05/28/2018 20:44 Discharged to Home. Impression: Abdominal tenderness; Functional lp1 dyspepsia; Gastritis, unspecified; Gastritis, unspecified, without bleeding. Condition is Stable. Discharge Instructions: Abdominal Pain, Adult, Nausea and Vomiting, Adult, Abdominal Pain, Adult, [id number], Gastritis, Adult, Gastritis, Adult, [id number]. Prescriptions for Bentyl 20 mg Oral Tablet - take 1 tablet by ORAL route every 6 hours As needed; 20 tablet, Protonix 40 mg Oral Tablet - take 1 tablet by ORAL route once daily; 30 tablet, Tylenol-Codeine #3 300-30 mg Oral Tablet - take 2 tablets by ORAL route every 6 hours As needed; 20 tablet, Zofran 4 mg Oral Tablet - take 1 tablet by ORAL route every 12 hours As needed; 20 tablet. and Forms are Medication Reconciliation Form, Thank You Letter, Antibiotic Education, Prescription Opioid Use. Follow up: Kay Dudley; When: 2 - 3 days; Reason: Recheck today's complaints, Continuance of care, Re-evaluation by your physician. Follow up: Blas Loredo; When: 2 - 3 days; Reason: Recheck today's complaints, Continuance of care, Re-evaluation by your physician. Problem is new. Symptoms have improved. [facility]
[2018-05-28 22:23] VITALS: TEMP 98.6
[2018-05-28 22:27] VITALS: BP 130/70; O2SAT 98
--- NOTE | 2018-05-29 07:14 | EKG ---
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
== END 2018-05-28 21:21 | disposition home or self-care (01) ==
LOC: ER 16:45
DX: K30 Functional dyspepsia (principal); K29.70 Gastritis, unspecified, without bleeding; I10 Essential (primary) hypertension; Z86.73 Personal history of transient ischemic attack (TIA), and cerebral infarction without residual deficits; Z79.82 Long term (current) use of aspirin; Z88.2 Allergy status to sulfonamides; Z88.5 Allergy status to narcotic agent
CPT/HCPCS: 36415; 71045; 71275; 74175; 80048; 80076; 83690; 83735; 83880; 84484; 85025; 85379; 85610; 93005; 96361; 96374; 96375; 99285; C9113; J2405; J3010; J7030; Q9967

== ENCOUNTER 2018-11-05 19:34 | Observation (INO) | payer OTHER ==
--- OUTSIDE RECORDS SUMMARY | 2018-11-05 19:36 | XMS REPORT ---
:1950 Author Organization [facility] Address [address] [place] [address] Dr. Wall [address] [place] [id number] Care Team Providers Name Role Phone Unavailable Unavailable Unavailable Problems This patient has no known problems. Allergies, Adverse Reactions, Alerts This patient has no known allergies or adverse reactions. Medications This patient has no known medications.
--- NOTE | 2018-11-05 20:28 | RAD REPORT ---
EXAM DESCRIPTION: RAD - Chest Single View - 11/05/2018 8:23 pm CLINICAL HISTORY: CHEST PAIN Chest pain. COMPARISON: Chest Single View dated 05/28/2018; Chest Single View dated 03/03/2018; Chest Single View dated 10/19/2017; Chest Single View dated 04/20/2016 FINDINGS: Portable technique limits examination quality. The lungs are grossly clear. The heart is normal in size. No displaced fractures. IMPRESSION: No acute intrathoracic process suspected.
[2018-11-05] MEDS ORDERED: PROMETHAZINE 25 MG/ML VIAL ONE (20:47)
[2018-11-05] MEDS ORDERED: ASPIRIN 81 MG CHEWABLE TABLET ONE (20:47)
[2018-11-05] MEDS ORDERED: FENTANYL CITR 100 MCG/2 ML ONE ×2 (20:47→21:09)
[2018-11-05] MEDS ORDERED: NA CHLORIDE 0.9% 1,000 ML ONE (20:48)
[2018-11-05 20:51] LABS: Absolute Lymphocytes (CBC) 1.7 K/uL (0.7-4.9); Absolute Monocytes 0.5 K/uL (0.1-1.3); Eosinophils % 1.3 % (0-4.4); Hematocrit 38.2 % (36.0-45.0); Lymphocytes % 16.3 % (15.3-44.8); MPV 8.7 fL (7.6-11.3); Monocytes % 4.8 % (3.3-12.3); RBC Red Blood Cell Count 4.73 M/uL (3.86-4.86)
[2018-11-05 20:59] LABS: Protime INR 1.08
[2018-11-05 21:13] LABS: ALT/SGPT 21 U/L (12-78); AST/SGOT 18 U/L (15-37); Alkaline Phosphatase 57 U/L (45-117); BUN Blood Urea Nitrogen 16 mg/dL (7-18); Bicarbonate 26 mmol/L (21-32); Bilirubin Direct < 0.1 mg/dL (0-0.2); Bilirubin Total 0.4 mg/dL (0.2-1.0); Glucose Level 117 mg/dL (74-106); Magnesium 2.3 mg/dL (1.8-2.4); NT PRO-BNP 146 pg/mL (<125); Potassium 3.7 mmol/L (3.5-5.1); Protein, Total 8.8 g/dL (6.4-8.2); Sodium Level 141 mmol/L (136-145); Troponin (Emerg Dept Use Only) < 0.02 ng/mL (0.0-0.045)
--- NOTE | 2018-11-05 23:31 | ER ---
Nurse's Notes [facility] Name: Ashley Teague Age: 68 yrs Sex: Female : 1950 Arrival Date: 11/05/2018 Time: 19:37 Bed 4 Private MD: Kay Dudley Diagnosis: Chest pain, unspecified Presentation: 11/05 19:48 Presenting complaint: Patient states: Left sided chest pain that began 30 min ago; lp1 States pain radiating to left side of neck and left jaw; "It feel like knives in my chest". Transition of care: patient was not received from another setting of care. Onset of symptoms was November 05, 2018 at 19:00. Risk Assessment: Do you want to hurt yourself or someone else? Patient reports no desire to harm self or others. Initial Sepsis Screen: Does the patient meet any 2 criteria? No. Patient's initial sepsis screen is negative. Does the patient have a suspected source of infection? No. Patient's initial sepsis screen is negative. Care prior to arrival: None. 19:48 Method Of Arrival: Wheelchair lp1 19:48 Acuity: SANTIAGO 3 lp1 Historical: - Allergies: 19:50 Percodan; lp1 19:50 Sulfa (Sulfonamide Antibiotics); lp1 - Home Meds: 19:50 gabapentin 600 mg Oral tab 4 tab nightly [Active]; lp1 - PMHx: 19:50 CVA; Hypertension; SVT; VASCULAR DEMENTIA; lp1 19:51 pulmonary hypertension; Sleep Apnea; lp1 - PSHx: 19:50 Appendectomy; Hysterectomy; Knee surgery; ankle surgery; Gastric Bypass; lp1 - Immunization history:: Adult Immunizations up to date. - Social history:: Smoking status: Patient/guardian denies using tobacco. - Ebola Screening: : No symptoms or risks identified at this time. Screenin:00 Abuse screen: Denies threats or abuse. Nutritional screening: No deficits noted. tl2 Tuberculosis screening: No symptoms or risk factors identified. Fall Risk None identified. Assessment: 20:00 General: Appears in no apparent distress. uncomfortable, Behavior is cooperative, tl2 appropriate for age, anxious. Pain: Complains of pain in anterior aspect of left upper chest and left breast Pain radiates to left jaw Pain currently is 8 out of 10 on a pain scale. Quality of pain is described as sharp, Pain began 1 hour ago. Is episodic. Neuro: Level of Consciousness is awake, alert, obeys commands, Oriented to person, place, time, situation. Cardiovascular: Chest pain is described as severe, quality is sharp, is located in left anterior chest wall radiates to left jaw(s) neck began 1 hour prior to arrival. Respiratory: Airway is patent Respiratory effort is even, unlabored, Respiratory pattern is regular, symmetrical. Respiratory: Reports shortness of breath. GI: Pt is actively vomiting Reports nausea. : No signs and/or symptoms were reported regarding the genitourinary system. Derm: Skin is pink, warm \\T\\ dry. 21:00 Reassessment: Patient appears in no apparent distress at this time. No changes from tl2 previously documented assessment. Patient and/or family updated on plan of care and expected duration. Pain level reassessed. 21:45 Reassessment: Patient appears in no apparent distress at this time. Patient and/or tl2 family updated on plan of care and expected duration. Pain level reassessed. Patient is alert, oriented x 3, equal unlabored respirations, skin warm/dry/pink. pt states pain has decreased from a 10 to a 4 Patient states feeling better. Patient states symptoms have improved. 23:50 Reassessment: pt reports increase in pain, MEDIA TRAFFIC MANAGER notified, new orders see MAR. tl2 11/06 00:30 Reassessment: Patient appears in no apparent distress at this time. Patient and/or tl2 family updated on plan of care and expected duration. Pain level reassessed. Patient is alert, oriented x 3, equal unlabored respirations, skin warm/dry/pink. Patient states feeling better. 01:15 Reassessment: pt stable and ready for transport to floor. tl2 Vital Signs: 11/05 19:49 BP 187 / 80; Pulse 98; Resp 18; Temp 99.3(O); Pulse Ox 100% on R/A; Weight 106.59 kg; lp1 Height 5 ft. 6 in. (167.64 cm); Pain 10/10; 20:00 BP 171 / 99; Pulse 101; Resp 18; Pulse Ox 100% on R/A; tl2 21:46 BP 113 / 77; Pulse 93; Resp 18; Pulse Ox 100% on R/A; tl2 22:38 BP 160 / 80; Pulse 86; Resp 19; Pulse Ox 100% ; tl2 23:55 BP 186 / 86; Pulse 97; Resp 17; Pulse Ox 100% on R/A; tl2 11/06 00:43 BP 153 / 69; Pulse 88; Resp 18; Pulse Ox 100% on R/A; tl2 11/05 19:49 Body Mass Index 37.93 (106.59 kg, 167.64 cm) lp1 Vitals: 11/05 20:00 Cardiac Rhythm Assessment Sinus rhythm W/unifocal PVC's Sinus tach. tl2 22:38 Cardiac Rhythm Assessment Sinus rhythm W/unifocal PVC's. tl2 ED Course: 19:37 Patient arrived in ED. am2 19:37 Kay Dudley MD is Private Physician. am2 19:49 Triage completed. lp1 19:49 Arm band placed on right wrist. lp1 19:56 [facility] snw 19:56 Johnny Hackett MD is Attending Physician. snw 20:00 Patient has correct armband on for positive identification. Placed in gown. Bed in low tl2 position. Call light in reach. Side rails up X2. clinical research monitor on. Pulse ox on. NIBP on. 20:15 Inserted saline lock: 22 gauge in left forearm, using aseptic technique. Blood tl2 collected. Patient maintains SpO2 saturation greater than 95% on room air. 20:21 Jeannie Venegas, RN is Primary Nurse. tl2 20:23 XRAY Chest (1 view) In Process Unspecified. EDMS 21:[address] via stretcher. vr 22:12 CT completed. Patient tolerated procedure well. Patient moved back from CT. vr 22:19 CT Chest For PE Angio In Process Unspecified. EDMS 23:29 Haley Staples MD is Hospitalizing Provider. snw 11/06 01:15 No provider procedures requiring assistance completed. Patient admitted, IV remains in tl2 place. Administered Medications: 11/05 20:49 Drug: fentaNYL (PF) 50 mcg Route: IVP; Site: left forearm; tl2 20:58 Follow up: Response: No adverse reaction; Pain is unchanged, physician notified tl2 20:50 Drug: Phenergan 6.25 mg Route: IVP; Site: left forearm; tl2 21:00 Follow up: Response: No adverse reaction; Nausea is decreased tl2 20:50 Drug: NS 0.9% 1000 ml Route: IV; Rate: 125 ml/hr; Site: left forearm; tl2 11/06 01:36 Follow up: IV Status: Infusion continued upon admission tl2 11/05 20:59 Drug: fentaNYL (PF) 50 mcg Route: IVP; Site: left forearm; tl2 21:47 Follow up: Response: No adverse reaction; Pain is decreased tl2 21:00 Drug: Aspirin Chewable Tablet 324 mg Route: PO; tl2 21:46 Follow up: Response: No adverse reaction tl2 23:55 Drug: fentaNYL (PF) 25 mcg Route: IVP; Site: left forearm; tl2 11/06 00:20 Follow up: Response: No adverse reaction; Pain is decreased tl2 Outcome: 11/05 23:30 Decision to Hospitalize by Provider. [facility] 11/06 01:15 Admitted to Tele accompanied by nurse, via stretcher, room 211, with chart, Report tl2 called to AV Ramirez Condition: stable Discharge instructions given to patient, Instructed on the need for admit. 01:39 Patient left the ED. tl2 Signatures: Dispatcher [employer] EDMS Delmy Patricio FNP-C [employer]Yoly Lazo Laura, RN RN lp1 Jeannie Venegas RN RN tl2 Isatu Govea am2 Corrections: (The following items were deleted from the chart) 11/05 21:48 21:45 Reassessment: Patient appears in no apparent distress at this time. Patient tl2 and/or family updated on plan of care and expected duration. Pain level reassessed. Patient is alert, oriented x 3, equal unlabored respirations, skin warm/dry/pink. Patient states feeling better. Patient states symptoms have improved. tl2
--- NOTE | 2018-11-05 23:31 | EDPHYS ---
Physician Documentation [facility] Name: Ashley Teague Age: 68 yrs Sex: Female : 1950 Arrival Date: 11/05/2018 Time: 19:37 Bed 4 Private MD: Kay Dudley ED Physician Johnny Hackett HPI: 11/05 20:04 This 68 yrs old Female presents to ER via Wheelchair with complaints of Chest snw Pain. 20:04 Onset: The symptoms/episode began/occurred suddenly. Associated signs and symptoms: snw Pertinent positives: chest pain. It is unknown whether or not the patient has had similar symptoms in the past. The patient has not recently seen a physician. heart cath 5 yr ago, normal, hx of pulmonary htn. Pt was in garage helping her Daughter and had onset of chest pain, mild nausea, no edema. + radiation of pain to left axilla and left jaw. Historical: - Allergies: 19:50 Percodan; lp1 19:50 Sulfa (Sulfonamide Antibiotics); lp1 - Home Meds: 19:50 gabapentin 600 mg Oral tab 4 tab nightly [Active]; lp1 - PMHx: 19:50 CVA; Hypertension; SVT; VASCULAR DEMENTIA; lp1 19:51 pulmonary hypertension; Sleep Apnea; lp1 - PSHx: 19:50 Appendectomy; Hysterectomy; Knee surgery; ankle surgery; Gastric Bypass; lp1 - Immunization history:: Adult Immunizations up to date. - Social history:: Smoking status: Patient/guardian denies using tobacco. - Ebola Screening: : No symptoms or risks identified at this time. ROS: 20:03 Constitutional: Negative for fever, chills, and weight loss, Eyes: Negative for injury, snw pain, redness, and discharge, ENT: Negative for injury, pain, and discharge, Neck: Negative for injury, pain, and swelling. 20:03 Abdomen/GI: Negative for abdominal pain, nausea, vomiting, diarrhea, and constipation, Back: Negative for injury and pain, : Negative for injury, bleeding, discharge, and swelling, MS/Extremity: Negative for injury and deformity, Skin: Negative for injury, rash, and discoloration, Neuro: Negative for headache, weakness, numbness, tingling, and seizure. 20:03 Cardiovascular: Positive for chest pain. 20:03 Respiratory: Positive for shortness of breath, on exertion. Exam: 20:03 Constitutional: This is a well developed, well nourished patient who is awake, alert, snw and in no acute distress. Head/Face: Normocephalic, atraumatic. Eyes: Pupils equal round and reactive to light, extra-ocular motions intact. Lids and lashes normal. Conjunctiva and sclera are non-icteric and not injected. Cornea within normal limits. Periorbital areas with no swelling, redness, or edema. ENT: Nares patent. No nasal discharge, no septal abnormalities noted. Tympanic membranes are normal and external auditory canals are clear. Oropharynx with no redness, swelling, or masses, exudates, or evidence of obstruction, uvula midline. Mucous membranes moist. Neck: Trachea midline, no thyromegaly or masses palpated, and no cervical lymphadenopathy. Supple, full range of motion without nuchal rigidity, or vertebral point tenderness. No Meningismus. Chest/axilla: Normal chest wall appearance and motion. Nontender with no deformity. No lesions are appreciated. Cardiovascular: Regular rate and rhythm with a normal S1 and S2. No gallops, murmurs, or rubs. Normal PMI, no JVD. No pulse deficits. Respiratory: Lungs have equal breath sounds bilaterally, clear to auscultation and percussion. No rales, rhonchi or wheezes noted. No increased work of breathing, no retractions or nasal flaring. Abdomen/GI: Soft, non-tender, with normal bowel sounds. No distension or tympany. No guarding or rebound. No evidence of tenderness throughout. Back: No spinal tenderness. No costovertebral tenderness. Full range of motion. Skin: Warm, dry with normal turgor. Normal color with no rashes, no lesions, and no evidence of cellulitis. MS/ Extremity: Pulses equal, no cyanosis. Neurovascular intact. Full, normal range of motion. Neuro: Awake and alert, GCS 15, oriented to person, place, time, and situation. Cranial nerves II-XII grossly intact. Motor strength 5/5 in all extremities. Sensory grossly intact. Cerebellar exam normal. Normal gait. 20:12 ECG was reviewed by the Attending Physician. snw Vital Signs: 19:49 BP 187 / 80; Pulse 98; Resp 18; Temp 99.3(O); Pulse Ox 100% on R/A; Weight 106.59 kg; lp1 Height 5 ft. 6 in. (167.64 cm); Pain 10/10; 20:00 BP 171 / 99; Pulse 101; Resp 18; Pulse Ox 100% on R/A; tl2 21:46 BP 113 / 77; Pulse 93; Resp 18; Pulse Ox 100% on R/A; tl2 22:38 BP 160 / 80; Pulse 86; Resp 19; Pulse Ox 100% ; tl2 23:55 BP 186 / 86; Pulse 97; Resp 17; Pulse Ox 100% on R/A; tl2 11/06 00:43 BP 153 / 69; Pulse 88; Resp 18; Pulse Ox 100% on R/A; tl2 11/05 19:49 Body Mass Index 37.93 (106.59 kg, 167.64 cm) lp1 MDM: 11/05 20:00 Patient medically screened. snw 22:03 Data reviewed: vital signs, nurses notes. Data interpreted: Pulse oximetry: on room air snw is 100 %. Interpretation: normal. Counseling: I had a detailed discussion with the patient and/or guardian regarding: the historical points, exam findings, and any diagnostic results supporting the discharge/admit diagnosis, the presence of at least one elevated blood pressure reading (>120/80) during this emergency department visit, lab results, radiology results, the need for further work-up and treatment in the hospital. Physician consultation: Haley Staples MD was called at 22:04, regarding admission, to the telemetry unit. 11/05 19:56 Order name: Basic Metabolic Panel; Complete Time: 21:16 snw 11/05 19:56 Order name: CBC with Diff; Complete Time: 20:53 snw 11/05 19:56 Order name: LFT's; Complete Time: 21:16 snw 11/05 19:56 Order name: Magnesium; Complete Time: 21:16 snw 11/05 19:56 Order name: NT PRO-BNP; Complete Time: 21:16 snw 11/05 19:56 Order name: PT-INR; Complete Time: 21:04 snw 11/05 19:56 Order name: Troponin (emerg Dept Use Only); Complete Time: 21:16 snw 11/05 23:46 Order name: Basic Metabolic Panel EDMS 11/05 23:46 Order name: Basic Metabolic Panel EDMS 11/05 23:46 Order name: CBC with Automated Diff EDMS 11/05 23:46 Order name: CBC with Automated Diff EDMS 11/05 23:46 Order name: Lipid Profile EDMS 11/05 23:46 Order name: Lipid Profile EDMS 11/05 23:46 Order name: Troponin I EDMS 11/05 19:56 Order name: XRAY Chest (1 view); Complete Time: 20:29 snw 11/05 19:56 Order name: EKG; Complete Time: 19:57 snw 11/05 21:47 Order name: CT Chest For PE Angio snw 11/05 23:46 Order name: CONS Physician Consult EDOH 11/05 23:46 Order name: Heart Healthy EDOH 11/05 23:46 Order name: Echo with Doppler EDMS 11/05 23:46 Order name: EKG Electrocardiogram EDMS 11/05 23:46 Order name: EKG Electrocardiogram EDOH 11/05 23:46 Order name: Troponin I EDOH 11/05 23:46 Order name: Troponin I EDOH 11/05 19:56 Order name: Cardiac monitoring; Complete Time: 20:21 snw 11/05 19:56 Order name: EKG - Nurse/Tech; Complete Time: 20:22 snw 11/05 19:56 Order name: IV Saline Lock; Complete Time: 20:22 snw 11/05 19:56 Order name: Labs collected and sent; Complete Time: 20:22 snw 11/05 19:56 Order name: O2 Per Protocol; Complete Time: 20:22 snw 11/05 19:56 Order name: O2 Sat Monitoring; Complete Time: 20:22 snw EC:12 Rate is 104 beats/min. Rhythm is regular. MI interval is normal. QRS interval is snw normal. QT interval is normal. No Q waves. T waves are Normal. No ST changes noted. Clinical impression: Sinus tachycardia. Administered Medications: 20:49 Drug: fentaNYL (PF) 50 mcg Route: IVP; Site: left forearm; tl2 20:58 Follow up: Response: No adverse reaction; Pain is unchanged, physician notified tl2 20:50 Drug: Phenergan 6.25 mg Route: IVP; Site: left forearm; tl2 21:00 Follow up: Response: No adverse reaction; Nausea is decreased tl2 20:50 Drug: NS 0.9% 1000 ml Route: IV; Rate: 125 ml/hr; Site: left forearm; tl2 11/06 01:36 Follow up: IV Status: Infusion continued upon admission tl2 11/05 20:59 Drug: fentaNYL (PF) 50 mcg Route: IVP; Site: left forearm; tl2 21:47 Follow up: Response: No adverse reaction; Pain is decreased tl2 21:00 Drug: Aspirin Chewable Tablet 324 mg Route: PO; tl2 21:46 Follow up: Response: No adverse reaction tl2 23:55 Drug: fentaNYL (PF) 25 mcg Route: IVP; Site: left forearm; tl2 11/06 00:20 Follow up: Response: No adverse reaction; Pain is decreased tl2 Disposition: 02:06 Co-signature as Attending Physician, Johnny Hackett MD. Disposition: 11/05/18 23:30 Hospitalization ordered by Haley Staples for Observation. Preliminary diagnosis is Chest pain, unspecified. - Bed requested for Telemetry/MedSurg (observation). - Status is Observation. tl2 - Condition is Stable. - Problem is new. - Symptoms have worsened. UTI on Admission? No Signatures: Dispatcher [employer] EDMS Delmy Patricio, DUSTIN-C AIR POLLUTION AUDITOR-Csnw Rosie Call, RN RN lp1 Elayne Luna RN RN cg Jeannie Venegas RN RN tl2 Johnny Hackett MD MD Corrections: (The following items were deleted from the chart) 11/05 23:54 23:30 Hospitalization Ordered by Haley Staples MD for Observation. Preliminary cg diagnosis is Chest pain, unspecified. Bed requested for Telemetry/MedSurg (observation). Status is Observation. Condition is Stable. Problem is new. Symptoms have worsened. UTI on Admission? No. snw 11/06 01:39 11/05 23:54 11/05/2018 23:30 Hospitalization Ordered by Haley Staples MD for tl2 Observation. Preliminary diagnosis is Chest pain, unspecified. Bed requested for Telemetry/MedSurg (observation). Status is Observation. Condition is Stable. Problem is new. Symptoms have worsened. UTI on Admission? No. cg
[2018-11-05] MEDS ORDERED: ACETAMINOPHEN 500 MG TAB PO PRN (23:41)
[2018-11-05] MEDS ORDERED: MORPHINE 4 MG/ML SYR IV PRN (23:41)
[2018-11-05] MEDS ORDERED: ALPRAZOLAM 0.25 MG TABLET PO PRN (23:41)
[2018-11-06] MEDS ORDERED: FENTANYL CITR 100 MCG/2 ML IV PRN (00:45)
[2018-11-06 01:48] VITALS: BMI 39.0
[2018-11-06 03:24] LABS: Urine Appearance CLEAR; Urine Bilirubin NEGATIVE (NEG); Urine Blood NEGATIVE (NEG); Urine Color YELLOW; Urine Glucose NEGATIVE (NEG); Urine Protein TRACE (NEG); Urine Specific Gravity >=1.030 (1.005-1.030); Urine pH 6.5 (5.0-7.0)
[2018-11-06 03:32] LABS: Urine Microscopic Reflex ORDER UMIC
[2018-11-06] MEDS: ONDANSETRON 4 MG/2 ML VIAL IV PRN ×2 (03:47→08:34)
[2018-11-06 04:13] LABS: Urine Bacteria <20 /HPF (<20); Urine Culture Reflex Order NOT NEEDED; Urine RBC NONE SEEN /HPF (NONE SEEN)
[2018-11-06 06:37] LABS: Absolute Lymphocytes (CBC) 1.5 K/uL (0.7-4.9); Absolute Monocytes 0.5 K/uL (0.1-1.3); Absolute Neutrophil 6.5 K/uL (1.8-8.0); Basophils % 0.5 % (0-1.3); Eosinophils % 1.5 % (0-4.4); Hematocrit 34.9 % (36.0-45.0); Lymphocytes % 16.9 % (15.3-44.8); MPV 8.7 fL (7.6-11.3); Monocytes % 5.8 % (3.3-12.3); RBC Red Blood Cell Count 4.41 M/uL (3.86-4.86)
[2018-11-06 06:51] LABS: Potassium 4.3 mmol/L (3.5-5.1)
--- NOTE | 2018-11-06 07:49 | EKG ---
Test Date: 2018-11-05 Test Time: 19:58:58 Film Booker: OSMAR MEASUREMENT RESULTS: Intervals: Rate: 104 HI: 128 QRSD: 80 QT: 348 QTc: 457 [place]: P: 38 HI: 128 QRS: -44 T: 33 INTERPRETIVE STATEMENTS: Sinus tachycardia Left axis deviation Left ventricular hypertrophy with repolarization abnormality Abnormal ECG Compared to ECG 05/28/2018 20:06:00 Early repolarization now present Sinus rhythm no longer present ST (T wave) deviation no longer present Electronically Signed On 11-06-18 07:49:00 CDT by Anthony Adams
[2018-11-06 08:54] VITALS: BP 187/84; TEMP 97.3
[2018-11-06] MEDS ORDERED: LISINOPRIL 10 MG TAB PO SCH (09:00)
[2018-11-06] MEDS ORDERED: PANTOPRAZOLE 40MG TABLET PO SCH (09:00)
[2018-11-06] MEDS ORDERED: ASPIRIN EC 81 MG TAB PO SCH (09:00)
[2018-11-06] MEDS ORDERED: METOPROLOL TAR 50 MG TAB PO SCH (09:00)
[2018-11-06] MEDS ORDERED: ENOXAPARIN 40 MG/0.4 ML SQ SCH (09:00)
--- NOTE | 2018-11-06 09:02 | P.HP ---
Certification for Inpatient Patient admitted to: Observation With expected LOS: <2 Midnights Patient will require the following post-hospital care: None Practitioner: I am a practitioner with admitting privileges, knowledge of patient current condition, hospital course, and medical plan of care. Services: Services provided to patient in accordance with Admission requirements found in Title 42 Section 412.3 of the Code of Federal Regulations Patient History Date of Service: 11/06/18 Reason for admission: Chest pain rule out acute coronary syndrome History of Present Illness: Patient is a 68-year-old female who came into the hospital with chest discomfort. She had been helping her daughter in the garage and afterwards she noticed that she was having the chest discomfort. She made her daughters aware that she was having the chest pain. she describes it as being very sharp and radiated to the left side of her body. This was unlike any chest pain she has ever had. She came to the emergency room for evaluation. Her initial troponins and EKG did not reveal any acute abnormality. On review of her chart she has had a stress test about 6 years ago which was negative. An echocardiogram a couple years ago which was normal. She had a CT aortic dissection which only revealed gastritis a couple years ago. She did see Dr. mckeno via couple years ago for a stress test which was normal. She has a family history with her mother having significant cardiac disease. No siblings with cardiac disease. At this time, she will be admitted to the hospital to be ruled out for acute coronary syndrome. She also had a Holter monitor placed a few months ago which was within normal limits. Allergies oxycodone Allergy (Severe, Verified 11/06/18 01:34) swollen tongue oxycodone HCl [From Percodan] Allergy (Severe, Verified 11/06/18 01:34) swollen tongue oxycodone terephthalate [From Percodan] Allergy (Severe, Verified 11/06/18 01:34 ) tongue swells Sulfa (Sulfonamide Antibiotics) [Sulfa(Sulfonamide Antibiotics)] Allergy (Mild, Verified 11/06/18 01:34) Hives/Rash morphine Allergy (Verified 11/06/18 01:52) Nausea/Vomiting Home Medications: Gabapentin 4 tab PO BEDTIME 11/06/18 - Past Medical/Surgical History Has patient received pneumonia vaccine in the past: Yes Diabetic: No -: pulmonary hypertension -: peptic ulcer disease -: sleep apnea -: valves regurgitation; LV hypertrophy -: deformed right kidney -: SVT -: heel spur, 7knee surgeries with 3 of them knee replacements. -: appendectomy, BTL, hysterectomy. -: right ankle tendon reconstruction -: heart cath.x3 -: right cataract surgery 01/2014 -: gastric bypass, band surgery, swan karrie. -: 2 breast tumor removed and neck1 lymph node removed, all benign -: mouth surgery - Family History Father Medical History: Lung disease, Other (see notes) Notes: brain bleed; copd Mother Medical History: Heart disease, Hypertension, Cancer Notes: phlebitis - Social History Smoking Status: Never smoker Alcohol use: No CD- Drugs: No Caffeine use: Yes Place of Residence: Home Review of Systems 10-point ROS is otherwise unremarkable Physical Examination - Vital Signs Temperature: 97.3 F Blood Pressure: 187/84 Pulse: 91 Respirations: 16 Pulse Ox (%): 98 - Physical Exam General: Alert, In no apparent distress, Oriented x3 HEENT: Atraumatic, PERRLA, Mucous membr. moist/pink, EOMI, Sclerae nonicteric Neck: Supple, 2+ carotid pulse no bruit, No LAD, Without JVD or thyroid abnormality Respiratory: Clear to auscultation bilaterally, Normal air movement Cardiovascular: Regular rate/rhythm, Normal S1 S2, No murmurs Gastrointestinal: Normal bowel sounds, Soft and benign, Non-distended, Tenderness (LUQ) Musculoskeletal: No tenderness Integumentary: No rashes Neurological: Normal gait, Normal speech, Normal strength at 5/5 x4 extr, Normal tone, Sensation intact, Cranial nerves 3-12 intact, Normal affect Lymphatics: No axilla or inguinal lymphadenopathy - Studies Laboratory Data (last 24 hrs) 11/05/18 20:40: PT 12.7 H, INR 1.08 11/05/18 20:40: WBC 10.4, Hgb 12.0, Hct 38.2, Plt Count 397 11/05/18 20:40: Sodium 141, Potassium 3.7, BUN 16, Creatinine 1.33 H, Glucose 117 H, Magnesium 2.3, Total Bilirubin 0.4, AST 18, ALT 21, Alkaline Phosphatase 57 Assessment & Plan - Problems (Diagnosis) (1) Family history of cardiac disorder in mother Current Visit: Yes Status: Acute (2) Hypertension Onset Date: 06/08/15 Current Visit: No Status: Acute (3) Chest pain, rule out acute myocardial infarction Current Visit: Yes Status: Acute - Plan 1. Serial troponins and EKG 2. Cardiology consultation 3. Echocardiogram and inpatient stress test(pending cardiology evaluation) 4. Anti-platelet therapy, anti coagulation, beta-emerson, statin, and O2 as needed 5. IV morphine for pain 6. Place on prtotonix for history of PUD/gastritis - Advance Directives Does patient have a Living Will: Yes Does patient have a Durable POA for Healthcare: Yes - Code Status/Comfort Care Code Status Assessed: Yes Code Status: Full Code Critical Care: No Time Spent Managing PTS Care (In Minutes): 45
--- NOTE | 2018-11-06 10:02 | EKG ---
Test Date: 2018-11-06 Test Time: 07:34:59 Graphic Manager: HYACINTH MEASUREMENT RESULTS: Intervals: Rate: 84 ME: 130 QRSD: 88 QT: 406 QTc: 479 [place]: P: 44 ME: 130 QRS: -43 T: 8 INTERPRETIVE STATEMENTS: Normal sinus rhythm Left axis deviation Voltage criteria for left ventricular hypertrophy Nonspecific ST abnormality Abnormal ECG Compared to ECG 11/05/2018 19:58:58 ST (T wave) deviation now present Sinus tachycardia no longer present Early repolarization no longer present Electronically Signed On 11-06-18 09:29:34 CDT by Tu Hewitt
--- NOTE | 2018-11-06 10:29 | RAD REPORT ---
EXAM DESCRIPTION: Chest For Pe Angio CLINICAL HISTORY: 68 years Female, CHEST PAIN COMPARISON: None. TECHNIQUE: 3 mm axial images of the thorax were obtained with IV contrast. 2 mm reformatted coronal and sagittal images were obtained. 2 mm reformatted right and left oblique images of the thorax were obtained. This exam was performed according to our departmental dose-optimization program, which includes autom ated exposure control, adjustment of the mA and/or kV according to patient size and/or use of iterati ve reconstruction technique. INTRAVENOUS CONTRAST: Not documented. Please refer to medical record. FINDINGS: LUNG LYON: No active infiltrates. MEDIASTINAL STRUCTURES: There is no evidence of aortic aneurysm or dissection. There is mild atherosclerosis of the aortic arch. There is no evidence of pericardial effusion. There is no evidence of adenopathy. PULMONARY ARTERIES: No evidence of pulmonary embolus. PLEURAL SPACE: Normal. AXILLAE: No adenopathy. UPPER ABDOMEN: No evidence of previous gastroplasty. BONY STRUCTURES: No suspicious lesions. There is severe diffuse spondylosis throughout the thoracic spine. IMPRESSION: 1. No evidence of pulmonary embolus. 2. No active infiltrates. 3. Mild atherosclerosis of the aortic arch. Electronically signed by: Ignacio Mendoza MD 11/05/2018 10:29 PM CDT Due to temporary technical issues with the PACS/Fluency reporting system, reports are being signed by the in house radiologist as a courtesy to ensure prompt reporting. The interpreting radiologist is f ully responsible for the content of the report.
[2018-11-06 12:20] VITALS: O2SAT 95
[2018-11-06] MEDS ORDERED: HYDRALAZINE HCL 20 MG/ML VIAL IV ONE (12:27)
--- NOTE | 2018-11-06 13:13 | P.SSS ---
Patient History Date of Service: 11/06/18 Reason for admission: Chest pain rule out acute coronary syndrome History of Present Illness: Patient is a 68-year-old female who came into the hospital with chest discomfort. She had been helping her daughter in the garage and afterwards she noticed that she was having the chest discomfort. She made her daughters aware that she was having the chest pain. she describes it as being very sharp and radiated to the left side of her body. This was unlike any chest pain she has ever had. She came to the emergency room for evaluation. Her initial troponins and EKG did not reveal any acute abnormality. On review of her chart she has had a stress test about 6 years ago which was negative. An echocardiogram a couple years ago which was normal. She had a CT aortic dissection which only revealed gastritis a couple years ago. She did see Dr. mckeon via couple years ago for a stress test which was normal. She has a family history with her mother having significant cardiac disease. No siblings with cardiac disease. At this time, she will be admitted to the hospital to be ruled out for acute coronary syndrome. She also had a Holter monitor placed a few months ago which was within normal limits. Allergies oxycodone Allergy (Severe, Verified 11/06/18 01:34) swollen tongue oxycodone HCl [From Percodan] Allergy (Severe, Verified 11/06/18 01:34) swollen tongue oxycodone terephthalate [From Percodan] Allergy (Severe, Verified 11/06/18 01:34 ) tongue swells Sulfa (Sulfonamide Antibiotics) [Sulfa(Sulfonamide Antibiotics)] Allergy (Mild, Verified 11/06/18 01:34) Hives/Rash morphine Allergy (Verified 11/06/18 01:52) Nausea/Vomiting Home Medications: Gabapentin 4 tab PO BEDTIME 11/06/18 Pantoprazole [Protonix Tab*] 40 mg PO BIDAC #60 tab 11/06/18 - Past Medical/Surgical History Has patient received pneumonia vaccine in the past: Yes Diabetic: No -: pulmonary hypertension -: peptic ulcer disease -: sleep apnea -: valves regurgitation; LV hypertrophy -: deformed right kidney -: SVT -: heel spur, 7knee surgeries with 3 of them knee replacements. -: appendectomy, BTL, hysterectomy. -: right ankle tendon reconstruction -: heart cath.x3 -: right cataract surgery 01/2014 -: gastric bypass, band surgery, swan karrie. -: 2 breast tumor removed and neck1 lymph node removed, all benign -: mouth surgery - Family History Father -: Lung disease, Other (see notes) Notes: brain bleed; copd Mother -: Heart disease, Hypertension, Cancer Notes: phlebitis - Social History Smoking Status: Never smoker Alcohol use: No CD- Drugs: No Caffeine use: Yes Place of Residence: Home Review of Systems 10-point ROS is otherwise unremarkable Physical Examination - Vital Signs Temperature: 97.3 F Blood Pressure: 187/84 Pulse: 91 Respirations: 16 Pulse Ox (%): 98 - Physical Exam General: Alert, In no apparent distress HEENT: Atraumatic, PERRLA, Mucous membr. moist/pink, EOMI, Sclerae nonicteric Neck: Supple, 2+ carotid pulse no bruit, No LAD, Without JVD or thyroid abnormality Respiratory: Clear to auscultation bilaterally, Normal air movement Cardiovascular: Regular rate/rhythm, Normal S1 S2 Gastrointestinal: Normal bowel sounds, No tenderness Musculoskeletal: No tenderness Integumentary: No rashes Neurological: Normal gait, Normal speech, Normal strength at 5/5 x4 extr, Normal tone, Normal affect Lymphatics: No axilla or inguinal lymphadenopathy - Studies Laboratory Data (last 24 hrs) 11/05/18 20:40: PT 12.7 H, INR 1.08 11/05/18 20:40: WBC 10.4, Hgb 12.0, Hct 38.2, Plt Count 397 11/05/18 20:40: Sodium 141, Potassium 3.7, BUN 16, Creatinine 1.33 H, Glucose 117 H, Magnesium 2.3, Total Bilirubin 0.4, AST 18, ALT 21, Alkaline Phosphatase 57 - Diagnosis (Problem(s)) (1) Chest pain, rule out acute myocardial infarction Current Visit: Yes Status: Ruled-out (2) Hypertension Onset Date: 06/08/15 Current Visit: No Status: Chronic Qualifiers: Hypertension type: essential hypertension Qualified Code(s): I10 - Essential (primary) hypertension - Disposition Disposition: ROUTINE DISCHARGE Condition: GOOD Diet: Regular Activity: Ad priyanka
--- NOTE | 2018-11-06 15:03 | ECHO ---
HEIGHT: 5 ft 6 in WEIGHT: 242 lb 0 oz DATE OF STUDY: 11/06/[address]: Haley Staples MD 2-DIMENSIONAL: YES M.MODE: YES DOPPLER: YES COLOR FLOW: YES TDS: NO PORTABLE: NO DEFINITY: NO BUBBLE STUDY: NO DIAGNOSIS: CHEST PAIN, RULE OUT ACS CARDIAC HISTORY: CATHERIZATION: YES SURGERY: NO PROSTHETIC VALVE: NO PACEMAKER: NO MEASUREMENTS (cm) DIASTOLIC (NORMALS) SYSTOLIC (NORMALS) IVSd 0.9 (0.6-1.2) LA Diam 3.3 (1.9-4.0) LVEF 67% LVIDd 4.3 (3.5-5.7) LVIDs 2.7 (2.0-3.5) %FS 37% LVPWd 1.2 (0.6-1.2) Ao Diam 2.5 (2.0-3.7) 2 DIMENSIONAL ASSESSMENT: RIGHT ATRIUM: NORMAL LEFT ATRIUM: NORMAL RIGHT VENTRICLE: NORMAL LEFT VENTRICLE: NORMAL TRICUSPID VALVE: NORMAL MITRAL VALVE: NORMAL PULMONIC VALVE: NORMAL AORTIC VALVE: NORMAL PERICARDIAL EFFUSION: NONE AORTIC ROOT: NORMAL LEFT VENTRICULAR WALL MOTION: NORMAL DOPPLER/COLOR FLOW: NORMAL COMMENTS: NORMAL 2D ECHOCARDIOGRAM WITH DOPPLER. NO WALL MOTION ABNORMALITY. NO EFFUSION. TECHNOLOGIST: Marcin DAWSON
--- NOTE | 2018-11-08 00:19 | CON ---
Date of Consultation: 11/06/2018 Reason For Consultation: Chest pain. History Of Present Illness: Ms. Teague is 68-year-old, who has had multiple past medical problems in the past. She does not have any history of cardiac ischemia or congestive heart failure, but has had SVT in the past and pulmonary hypertension. She has had a history of CVA, hypertension, sleep ap connie, vascular dementia, and bleeding ulcers. She also is known to have some moderate cerebrovascular disease. She came in with a myriad of symptoms including nausea, vomiting, abdominal pain, chest pa in, neck pain, headache, shortness of breath, diaphoresis, but with all that had a negative troponin, negative EKG, negative BNP. Echocardiogram, which was done before I saw the patient, was normal. Allergies: INCLUDE PERCODAN, CODEINE, SULFA, AND MORPHINE. Review of Systems: Negative. Social History: Negative. Family History: Negative. Medications: At home only include Neurontin. Physical Examination: Vital Signs: Stable. She was afebrile. General: She was in no acute distress. She still had some nausea and vomiting just before I saw her . HEENT: Negative. Neck: Supple. No bruit. Chest: Clear. Cardiac: Regular rhythm and rate. No murmurs, gallops, or rubs. Abdomen: Benign. Extremities: No clubbing, cyanosis, or edema. Diagnostic Data: All within normal limit. Impression And Plan: I think this Ms. Teague is suffering from peptic ulcer disease or gastroesoph ageal reflux disease, that is severe. Her echocardiogram is normal, EKG is normal. CPKs and MBs and troponin are negative. Her BNP is negative. I suggested a proton pump inhibitor, maybe a repeat en doscopy. GI consultation should be considered as an outpatient. I think she can go home whenever it is okay with Dr. Staples. I would like her to do an outpatient stress test. Her other problems includ ing history of cerebrovascular accident, supraventricular tachycardia, pulmonary hypertension seem to be stable. She has a history of sleep apnea and vascular dementia, that are stable. She does have moderate cerebrovascular disease with moderate carotid stenosis, that has been followed by Dr. Ramana matute and she will follow up with him in the near future. ALMA/ROSS Voice ID: [id number] Report ID: [id number]
== END 2018-11-06 13:18 | disposition home or self-care (01) ==
LOC: ER 19:34 → ERHOLD 11-06 00:03 → 2ND 11-06 00:46
PROVIDERS: ADMIT Hospitalist; ATTEND Family Medicine
DX: R07.9 Chest pain, unspecified (principal); K27.9 Peptic ulcer, site unspecified, unspecified as acute or chronic, without hemorrhage or perforation; I27.20 Pulmonary hypertension, unspecified; G47.30 Sleep apnea, unspecified; I67.9 Cerebrovascular disease, unspecified; I47.1 Supraventricular tachycardia; Z88.6 Allergy status to analgesic agent; Z88.2 Allergy status to sulfonamides; Z82.49 Family history of ischemic heart disease and other diseases of the circulatory system
CPT/HCPCS: 96361; 93005 ×2; 93306; 85025 ×2; 80048 ×2; 36415; 83735; 85610; 80061; 80076; 84484 ×2; 83880; 71275; 71045; 96375; 96374; 99285; Q9967; J0360; J2550; J1650; J3010 ×3; J7030; J2405 ×2; G0378 ×2; 81003; 81015

== ENCOUNTER 2019-03-08 19:12 | Emergency (ER) | payer OTHER ==
[2019-03-08 20:18] LABS: Absolute Lymphocytes (CBC) 2.1 K/uL (0.7-4.9); Basophils % 1.3 % (0-1.3); Lymphocytes % 36.9 % (15.3-44.8); MPV 8.6 fL (7.6-11.3); RBC Red Blood Cell Count 4.51 M/uL (3.86-4.86)
[2019-03-08 20:30] LABS: Potassium 4.1 mmol/L (3.5-5.1)
[2019-03-08] MEDS ORDERED: CLINDAMYCIN 900MG/D5W 900 MG/50 ML IVPB IV ONE (20:43)
--- NOTE | 2019-03-08 21:03 | RAD REPORT ---
EXAM DESCRIPTION: US - Extremity Venous Uni Ltd - 03/08/2019 8:29 pm CLINICAL HISTORY: Cellulitis, right leg pain and swelling COMPARISON: None. TECHNIQUE: Real-time sonographic evaluation of the right lower extremity deep venous systems was per formed. FINDINGS: Normal compressibility, flow augmentation, phasic flow and spontaneous flow are identified in the right lower extremity common femoral, superficial femoral, popliteal and posterior tibial vei ns. No intraluminal filling defects seen. IMPRESSION: No DVT in the right lower extremity.
--- NOTE | 2019-03-08 21:05 | ER ---
Nurse's Notes [facility] Name: Ashley Teague Age: 68 yrs Sex: Female : 1950 Arrival Date: 03/08/2019 Time: 19:15 Bed 14 Private MD: Kay Dudley Diagnosis: Cellulitis of right lower limb-right ankle Presentation: 03/08 19:29 Presenting complaint: Patient states: I have an area of redness to my right medial la1 ankle area. Transition of care: patient was not received from another setting of care. Onset of symptoms was March 08, 2019. Risk Assessment: Do you want to hurt yourself or someone else? Patient reports no desire to harm self or others. Initial Sepsis Screen: Does the patient meet any 2 criteria? No. Patient's initial sepsis screen is negative. Does the patient have a suspected source of infection? No. Patient's initial sepsis screen is negative. Care prior to arrival: None. 19:29 Method Of Arrival: Ambulatory la1 19:29 Acuity: SANTIAGO 3 la1 Historical: - Allergies: 19:32 Percodan; la1 19:32 Sulfa (Sulfonamide Antibiotics); la1 - Home Meds: 19:32 gabapentin 600 mg Oral tab 4 tab nightly [Active]; metoprolol succinate 50 mg oral Tb24 la1 1 tab once daily [Active]; pantoprazole 40 mg oral TbEC 1 tab once daily [Active]; Zofran (as hydrochloride) 4 mg Oral tab 1 tabs every 12 hours [Active]; Bentyl 10 mg Oral cap 1 cap 3 times per day [Active]; - PMHx: 19:32 CVA; Hypertension; PULMONARY HYPERTENSION; Sleep Apnea; SVT; VASCULAR DEMENTIA; la1 - PSHx: 19:32 Appendectomy; Hysterectomy; lap band; Gastric Bypass; Tubal ligation; Cholecystectomy; la1 breast tumor; rotator cuff; ganglion cyst; Knee surgery; ankle; - Immunization history:: Adult Immunizations up to date. - Social history:: Smoking status: Patient/guardian denies using tobacco. - Ebola Screening: : No symptoms or risks identified at this time. Screenin:11 Abuse screen: Denies threats or abuse. Nutritional screening: No deficits noted. jb4 Tuberculosis screening: No symptoms or risk factors identified. Fall Risk None identified. Assessment: 19:43 General: Appears in no apparent distress. comfortable, Behavior is calm, cooperative, jb4 appropriate for age. Pain: Complains of pain in lateral aspect of right calf, right calf, medial aspect of right calf and right matson Pain does not radiate. Pain currently is 5 out of 10 on a pain scale. Quality of pain is described as stinging. Neuro: Level of Consciousness is awake, alert, obeys commands, Oriented to person, place, time, situation. Cardiovascular: Patient's skin is warm and dry. Respiratory: Airway is patent Respiratory effort is even, unlabored, Respiratory pattern is regular, symmetrical. GI: No deficits noted. No signs and/or symptoms were reported involving the gastrointestinal system. : No deficits noted. No signs and/or symptoms were reported regarding the genitourinary system. EENT: No deficits noted. No signs and/or symptoms were reported regarding the EENT system. Derm: Skin is intact, Skin is pink, warm \T\ dry. Musculoskeletal: Circulation, motion, and sensation intact. Range of motion: intact in all extremities. 20:30 Reassessment: Patient appears in no apparent distress at this time. Patient and/or jb4 family updated on plan of care and expected duration. Pain level reassessed. Patient is alert, oriented x 3, equal unlabored respirations, skin warm/dry/pink. 21:33 Reassessment: Patient appears in no apparent distress at this time. Patient and/or jb4 family updated on plan of care and expected duration. Pain level reassessed. Patient is alert, oriented x 3, equal unlabored respirations, skin warm/dry/pink. Pt verbalized understanding of d/c and follow up instructions. Ambulated out of ED with steady gait, with family. Vital Signs: 19:32 BP 177 / 77; Pulse 77; Resp 16; Temp 97.4; Pulse Ox 98% on R/A; Weight 106.59 kg; la1 Height 5 ft. 6 in. (167.64 cm); 20:30 BP 171 / 65; Pulse 73; Resp 16; Pulse Ox 100% on R/A; jb4 21:15 BP 148 / 80; Pulse 71; Resp 16; Pulse Ox 98% on R/A; jb4 19:32 Body Mass Index 37.93 (106.59 kg, 167.64 cm) la1 ED Course: 19:15 Patient arrived in ED. es 19:15 Kay Dudley MD is Private Physician. es 19:30 Triage completed. la1 19:32 Arm band placed on left wrist. la1 19:35 Baldemar Gustafson, RN is Primary Nurse. jb4 19:36 Rio Eddy PA is PHCP. cp 19:36 Marquise Agrawal MD is Attending Physician. cp 20:11 Patient has correct armband on for positive identification. Bed in low position. Call jb4 light in reach. Side rails up X 1. Pulse ox on. NIBP on. 20:20 Initial lab(s) drawn, by me, sent to lab. Inserted saline lock: 20 gauge in right jb4 forearm, using aseptic technique. Blood collected. 20:27 Ultrasound completed. Patient tolerated well. sg3 20:28 US Extremity Venous Unilateral Ltd In Process Unspecified. EDMS 21:03 Kay Dudley MD is Referral Physician. cp 21:36 No provider procedures requiring assistance completed. IV discontinued, intact, jb4 bleeding controlled, No redness/swelling at site. Pressure dressing applied. Administered Medications: 20:50 Drug: Clindamycin 900 mg Route: IVPB; Infused Over: 30 mins; Site: right antecubital; jb4 21:20 Follow up: Response: No adverse reaction; IV Status: Completed infusion; IV Intake: 03ojms2 21:30 Drug: Hydrocodone-Acetaminophen (7.5 mg-500 mg) 1 tabs {Note: Rass score 0.} Route: PO; jb4 21:37 Follow up: Response: Medication administered at discharge.; RASS: Alert and Calm (0) jb4 Intake: 21:20 IV: 50ml; Total: 50ml. jb4 Outcome: 21:04 Discharge ordered by . cp 21:36 Discharged to home ambulatory, with family. jb4 21:36 Condition: stable 21:36 Discharge instructions given to patient, family, Instructed on discharge instructions, follow up and referral plans. medication usage, Demonstrated understanding of instructions, follow-up care, medications, Prescriptions given X 2. 21:38 Patient left the ED. jb4 Signatures: Dispatcher [employer] EDIL Nohemi Salamanca Lee, RN RN la1 Rio Eddy PA PA cp Baldemar Gustafson RN RN jb4 Nunu Rousseau sg3
--- NOTE | 2019-03-08 21:05 | EDPHYS ---
Physician Documentation [facility] Name: Ashley Teague Age: 68 yrs Sex: Female : 1950 Arrival Date: 03/08/2019 Time: 19:15 Bed 14 Private MD: Kay Dudley ED Physician Marquise Agrawal HPI: 03/08 19:55 This 68 yrs old Female presents to ER via Ambulatory with complaints of cp CELLULITIS OF LEG. 19:55 The patient presents with pain, that is acute, swelling, tenderness, erythema. The cp complaints affect the right lower leg. Context: resulted from an unknown cause. Onset: The symptoms/episode began/occurred this morning. Associated signs and symptoms: Pertinent positives: warmth, Pertinent negatives fever, numbness, tingling, weakness. Treatment prior to arrival includes: no previous treatment. 19:55 Modifying factors: the symptoms are aggravated by weight bearing. cp Historical: - Allergies: 19:32 Percodan; la1 19:32 Sulfa (Sulfonamide Antibiotics); la1 - Home Meds: 19:32 gabapentin 600 mg Oral tab 4 tab nightly [Active]; metoprolol succinate 50 mg oral Tb24 la1 1 tab once daily [Active]; pantoprazole 40 mg oral TbEC 1 tab once daily [Active]; Zofran (as hydrochloride) 4 mg Oral tab 1 tabs every 12 hours [Active]; Bentyl 10 mg Oral cap 1 cap 3 times per day [Active]; - PMHx: 19:32 CVA; Hypertension; PULMONARY HYPERTENSION; Sleep Apnea; SVT; VASCULAR DEMENTIA; la1 - PSHx: 19:32 Appendectomy; Hysterectomy; lap band; Gastric Bypass; Tubal ligation; Cholecystectomy; la1 breast tumor; rotator cuff; ganglion cyst; Knee surgery; ankle; - Immunization history:: Adult Immunizations up to date. - Social history:: Smoking status: Patient/guardian denies using tobacco. - Ebola Screening: : No symptoms or risks identified at this time. ROS: 20:05 Constitutional: Negative for body aches, chills, fever, poor PO intake. cp 20:05 Eyes: Negative for injury, pain, redness, and discharge. cp 20:05 ENT: Negative for drainage from ear(s), ear pain, difficulty swallowing, difficulty handling secretions. 20:05 Cardiovascular: Negative for chest pain, palpitations. 20:05 Respiratory: Negative for cough, dyspnea on exertion, shortness of breath, wheezing. 20:05 Abdomen/GI: Negative for abdominal pain, nausea, vomiting, and diarrhea. 20:05 Skin: Positive for erythema, swelling, of the right lower leg. 20:05 Neuro: Negative for altered mental status, headache, weakness. 20:05 All other systems are negative. Exam: 20:15 Constitutional: The patient appears in no acute distress, alert, awake, cp non-diaphoretic, non-toxic, well developed, well nourished. 20:15 Head/Face: Normocephalic, atraumatic. cp 20:15 Eyes: Periorbital structures: appear normal, Conjunctiva: normal, no exudate, no injection, Sclera: no appreciated abnormality, Lids and lashes: appear normal, bilaterally. 20:15 ENT: External ear(s): are unremarkable, Nose: is normal, Mouth: Lips: moist, Oral mucosa: moist, Posterior pharynx: is normal, airway is patent. 20:15 Chest/axilla: Inspection: normal. 20:15 Cardiovascular: Rate: normal, Rhythm: regular. 20:15 Respiratory: the patient does not display signs of respiratory distress, Respirations: normal, no use of accessory muscles, no retractions, no splinting, no tachypnea, labored breathing, is not present, Breath sounds: are clear throughout, no decreased breath sounds. 20:15 Abdomen/GI: Inspection: abdomen appears normal. 20:15 Skin: cellulitis, that is mild, well demarcated, on the right lower leg. Vital Signs: 19:32 BP 177 / 77; Pulse 77; Resp 16; Temp 97.4; Pulse Ox 98% on R/A; Weight 106.59 kg; la1 Height 5 ft. 6 in. (167.64 cm); 20:30 BP 171 / 65; Pulse 73; Resp 16; Pulse Ox 100% on R/A; jb4 21:15 BP 148 / 80; Pulse 71; Resp 16; Pulse Ox 98% on R/A; jb4 19:32 Body Mass Index 37.93 (106.59 kg, 167.64 cm) la1 MDM: 19:36 Patient medically screened. cp 20:00 Differential diagnosis: DVT, cellulitis, abscess. cp 20:58 ED course: US of right lower leg negative for DVT. cp 21:03 Data reviewed: vital signs, nurses notes, lab test result(s), radiologic studies, cp ultrasound, and as a result, I will discharge patient. 21:03 Counseling: I had a detailed discussion with the patient and/or guardian regarding: the cp historical points, exam findings, and any diagnostic results supporting the discharge/admit diagnosis, lab results, radiology results, the need for outpatient follow up, a family practitioner, to return to the emergency department if symptoms worsen or persist or if there are any questions or concerns that arise at home. Response to treatment: the patient's symptoms have mildly improved after treatment. 03/08 19:52 Order name: CBC with Diff; Complete Time: 20:32 cp 03/08 19:52 Order name: BMP; Complete Time: 20:32 cp 03/08 19:52 Order name: US Extremity Venous Unilateral Ltd; Complete Time: 21:15 cp 03/08 21:15 Interpretation: Report reviewed. 03/08 19:52 Order name: IV; Complete Time: 20:17 cp Administered Medications: 20:50 Drug: Clindamycin 900 mg Route: IVPB; Infused Over: 30 mins; Site: right antecubital; jb4 21:20 Follow up: Response: No adverse reaction; IV Status: Completed infusion; IV Intake: [id number] 21:30 Drug: Hydrocodone-Acetaminophen (7.5 mg-500 mg) 1 tabs {Note: Rass score 0.} Route: PO; jb4 21:37 Follow up: Response: Medication administered at discharge.; RASS: Alert and Calm (0) jb4 Disposition: 03/09 06:03 Co-signature as Attending Physician, Marquise Agrawal MD I agree with the assessment and tw4 plan of care. Disposition: 03/08/19 21:04 Discharged to Home. Impression: Cellulitis of right lower limb - right ankle. - Condition is Stable. - Discharge Instructions: Cellulitis, Adult. - Prescriptions for Clindamycin HCl 300 mg Oral Capsule - take 1 capsule by ORAL route every 6 hours for 10 days; 40 capsule. Tramadol 50 mg Oral Tablet - take 1 tablet by ORAL route every 8 hours as needed; 12 tablet. - Medication Reconciliation Form, Thank You Letter, Antibiotic Education, Prescription Opioid Use form. - Follow up: Kay Dudley MD; When: 2 - 3 days; Reason: Recheck today's complaints. - Problem is new. - Symptoms have improved. Signatures: Dispatcher [employer] EDMS Marshal Barrera, RN RN la1 Rio Eddy PA PA cp Bryson, James RN RN jb4 Marquise Agrawal MD MD tw4 Corrections: (The following items were deleted from the chart) 03/08 21:38 21:04 03/08/2019 21:04 Discharged to Home. Impression: Cellulitis of right lower limb - jb4 right ankle. Condition is Stable. Forms are Medication Reconciliation Form, Thank You Letter, Antibiotic Education, Prescription Opioid Use. Follow up: Kay Dudley; When: 2 - 3 days; Reason: Recheck today's complaints. Problem is new. Symptoms have improved. cp
[2019-03-08] MEDS ORDERED: HYDROCODONE/APAP 7.5/325 MG TAB ONE (21:23)
[2019-03-09 01:10] VITALS: TEMP 97.4
[2019-03-09 01:12] VITALS: BP 148/80; O2SAT 98
== END 2019-03-08 21:38 | disposition home or self-care (01) ==
LOC: ER 19:12
DX: L03.115 Cellulitis of right lower limb (principal); Z88.2 Allergy status to sulfonamides; Z88.6 Allergy status to analgesic agent
CPT/HCPCS: 36415; 80048; 85025; 93971; 96365; 99284

== ENCOUNTER 2019-04-13 12:52 | Emergency (ER) | payer OTHER ==
--- NOTE | 2019-04-13 14:01 | EDPHYS ---
Physician Documentation [facility] Name: Ashley Teague Age: 68 yrs Sex: Female : 1950 Arrival Date: 04/13/2019 Time: 12:57 Bed 12 Private MD: Kay Dudley ED Physician Rio Ledezma HPI: 04/13 13:53 This 68 yrs old Female presents to ER via Ambulatory with complaints of cp Toothache. 13:53 The patient presents with broken tooth/teeth, pain, swelling. The problem is located in cp the right upper jaw. Onset: The symptoms/episode began/occurred 2 day(s) ago. Duration: The symptoms are continuous, and are steadily getting worse. Associated signs and symptoms: Pertinent positives: pain, swelling, facial, Pertinent negatives: dysphagia, fever, inability to eat. Severity of symptoms: in the emergency department the symptoms are unchanged, despite home interventions. Historical: - Allergies: 13:20 Percodan; aa5 13:20 Sulfa (Sulfonamide Antibiotics); aa5 - Home Meds: 13:20 metoprolol succinate 50 mg Oral Tb24 1 tab once daily [Active]; pantoprazole 40 mg Oral aa5 TbEC 1 tab once daily [Active]; gabapentin 600 mg Oral tab 4 tab nightly [Active]; Zofran (as hydrochloride) 4 mg Oral tab 1 tabs every 12 hours [Active]; Bentyl 10 mg Oral cap 1 cap 3 times per day [Active]; - PMHx: 13:20 CVA; Hypertension; PULMONARY HYPERTENSION; Sleep Apnea; SVT; VASCULAR DEMENTIA; aa5 - PSHx: 13:20 Appendectomy; Hysterectomy; lap band; Gastric Bypass; Tubal ligation; Cholecystectomy; aa5 breast tumor; rotator cuff; ganglion cyst; Knee surgery; ankle; - Immunization history:: Flu vaccine is not up to date. - Social history:: Smoking status: Patient/guardian denies using tobacco. - Ebola Screening: : No symptoms or risks identified at this time. ROS: 13:54 Constitutional: Negative for body aches, chills, fever, poor PO intake. cp 13:54 ENT: Positive for dental pain, ear pain, of the right upper jaw, Negative for sinus congestion, sinus pain, sore throat, difficulty swallowing, difficulty handling secretions. 13:54 Neck: Negative for pain with movement, pain at rest, stiffness. 13:54 Respiratory: Negative for cough, wheezing. 13:54 Neuro: Positive for headache, Negative for altered mental status, weakness. 13:54 All other systems are negative. Exam: 13:56 Constitutional: The patient appears in no acute distress, alert, awake, non-toxic, well cp developed, well nourished. 13:56 Head/face: Noted is swelling, that is mild, of the right cheek, tenderness, that is mild, of the right cheek. 13:56 Eyes: Periorbital structures: appear normal, Conjunctiva: normal, no exudate, no injection, Lids and lashes: appear normal, bilaterally. 13:56 ENT: External ear(s): are unremarkable, Ear canal(s): are normal, clear, TM's: dullness, bilaterally, Nose: is normal, Mouth: Lips: moist, Oral mucosa: moist, Posterior pharynx: is normal, airway is patent, no erythema, no exudate, Dental exam: abscess, is not appreciated, dental caries, that is moderate, specifically in the upper right first molar (#3) and upper right second bicuspid (#4), fractured teeth are noted, specifically the upper right first molar (#3) and upper right second bicuspid (#4), pain, that is mild, specifically in the upper right first molar (#3), Voice: is normal. 13:56 Neck: ROM/movement: is normal, is supple, without pain, no range of motions limitations, no nuchal rigidity. 13:56 Chest/axilla: Inspection: normal. 13:56 Cardiovascular: Rate: normal, Rhythm: regular. 13:56 Skin: no rash present. Vital Signs: 13:20 BP 133 / 62; Pulse 76; Resp 18 S; Temp 98.8(O); Pulse Ox 100% on R/A; Weight 108.86 kg aa5 (R); Height 5 ft. 6 in. (167.64 cm) (R); Pain 6/10; 13:20 Body Mass Index 38.74 (108.86 kg, 167.64 cm) aa5 MDM: 13:47 Patient medically screened. [facility] 13:58 Data reviewed: vital signs, nurses notes, and as a result, I will discharge patient. 13:58 Differential diagnosis: dental caries, dental abscess, pericoronitis, cp gingivostomatitis. Counseling: I had a detailed discussion with the patient and/or guardian regarding: the historical points, exam findings, and any diagnostic results supporting the discharge/admit diagnosis, the need for outpatient follow up, for definitive care, a dentist, to return to the emergency department if symptoms worsen or persist or if there are any questions or concerns that arise at home. Administered Medications: No medications were administered Disposition: 14:30 Chart complete. cp Disposition: 04/13/19 13:59 Discharged to Home. Impression: Jaw pain - right upper. - Condition is Stable. - Discharge Instructions: Dental Pain. - Prescriptions for Tramadol 50 mg Oral Tablet - take 1 tablet by ORAL route every 8 hours as needed; 15 tablet. Clindamycin HCl 300 mg Oral Capsule - take 1 capsule by ORAL route every 6 hours for 10 days; 40 capsule. - Medication Reconciliation Form, Thank You Letter, Antibiotic Education, Prescription Opioid Use form. - Follow up: Alexis Cordon DDS; When: 2 - 3 days; Reason: Recheck today's complaints. - Problem is new. - Symptoms have improved. Addendum: 04/15/2019 07:59 Co-signature as Attending Physician, Rio Ledezma MD I agree with the assessment and c oconnor plan of care. Signatures: Rio Ledezma MD MD cha Calderon, Audri, RN RN aa5 Dannielle Stout RN RN ss Rio Eddy PA PA cp Corrections: (The following items were deleted from the chart) 04/13 14:13 13:59 04/13/2019 13:59 Discharged to Home. Impression: Jaw pain - right upper. ss Condition is Stable. Forms are Medication Reconciliation Form, Thank You Letter, Antibiotic Education, Prescription Opioid Use. Follow up: Alexis Cordon; When: 2 - 3 days; Reason: Recheck today's complaints. Problem is new. Symptoms have improved. cp
--- NOTE | 2019-04-13 14:01 | ER ---
Nurse's Notes [facility] Name: Ashley Teague Age: 68 yrs Sex: Female : 1950 Arrival Date: 04/13/2019 Time: 12:57 Bed 12 Private MD: Kay Dudley Diagnosis: Jaw pain-right upper Presentation: 04/13 13:18 Presenting complaint: Patient states: toothache with right cheek swelling that began 2 aa5 days ago. Transition of care: patient was not received from another setting of care. Onset of symptoms was March 2019. Risk Assessment: Do you want to hurt yourself or someone else? Patient reports no desire to harm self or others. Initial Sepsis Screen: Does the patient meet any 2 criteria? No. Patient's initial sepsis screen is negative. Does the patient have a suspected source of infection? No. Patient's initial sepsis screen is negative. Care prior to arrival: None. 13:18 Acuity: SANTIAGO 5 aa5 13:18 Method Of Arrival: Ambulatory aa5 Historical: - Allergies: 13:20 Percodan; aa5 13:20 Sulfa (Sulfonamide Antibiotics); aa5 - Home Meds: 13:20 metoprolol succinate 50 mg Oral Tb24 1 tab once daily [Active]; pantoprazole 40 mg Oral aa5 TbEC 1 tab once daily [Active]; gabapentin 600 mg Oral tab 4 tab nightly [Active]; Zofran (as hydrochloride) 4 mg Oral tab 1 tabs every 12 hours [Active]; Bentyl 10 mg Oral cap 1 cap 3 times per day [Active]; - PMHx: 13:20 CVA; Hypertension; PULMONARY HYPERTENSION; Sleep Apnea; SVT; VASCULAR DEMENTIA; aa5 - PSHx: 13:20 Appendectomy; Hysterectomy; lap band; Gastric Bypass; Tubal ligation; Cholecystectomy; aa5 breast tumor; rotator cuff; ganglion cyst; Knee surgery; ankle; - Immunization history:: Flu vaccine is not up to date. - Social history:: Smoking status: Patient/guardian denies using tobacco. - Ebola Screening: : No symptoms or risks identified at this time. Screenin:57 Abuse screen: Denies threats or abuse. Denies injuries from another. Nutritional ss screening: No deficits noted. Tuberculosis screening: Never had TB. Fall Risk None identified. Assessment: 13:58 General: Appears uncomfortable, Behavior is calm, cooperative, Denies fever. Pain: ss Complains of pain in upper right second bicuspid (#4) and upper right first molar (#3) and right cheek Pain currently is 6 out of 10 on a pain scale. Quality of pain is described as tender, throbbing, Pain began 2-3 days ago. Is continuous. Neuro: Level of Consciousness is awake, alert, obeys commands, Oriented to person, place, time, situation. Cardiovascular: Capillary refill < 3 seconds is brisk in bilateral fingers Patient's skin is warm and dry. Respiratory: Respiratory effort is even, unlabored. GI: No signs and/or symptoms were reported involving the gastrointestinal system. EENT: Oral mucosa is moist. Throat is clear. Derm: Skin is pink, warm \T\ dry. normal. Musculoskeletal: mild swelling noted to R side of face/ cheek. Vital Signs: 13:20 BP 133 / 62; Pulse 76; Resp 18 S; Temp 98.8(O); Pulse Ox 100% on R/A; Weight 108.86 kg aa5 (R); Height 5 ft. 6 in. (167.64 cm) (R); Pain 6/10; 13:20 Body Mass Index 38.74 (108.86 kg, 167.64 cm) aa5 ED Course: 12:57 Patient arrived in ED. mr 12:57 Kay Dudley MD is Private Physician. mr 13:17 Arm band placed on. aa5 13:18 Triage completed. aa5 13:47 [facility]. cp 13:47 Rio Ledezma MD is Attending Physician. cp 13:57 Patient has correct armband on for positive identification. Bed in low position. Call ss light in reach. 13:59 Alexis Cordon DDS is Referral Physician. cp 14:13 No provider procedures requiring assistance completed. Patient did not have IV access ss during this emergency room visit. Administered Medications: No medications were administered Outcome: 13:59 Discharge ordered by . cp 14:13 Discharged to home ambulatory. ss 14:13 Condition: good 14:13 Discharge instructions given to patient, Instructed on discharge instructions, follow up and referral plans. medication usage, Demonstrated understanding of instructions, follow-up care, medications, Prescriptions given X 2. 14:13 Patient left the ED. ss Signatures: Maribel Oviedo mr Perla Cota, AV RN aa5 Dannielle Stout RN RN ss Nunu, Rio, PA PA cp Corrections: (The following items were deleted from the chart) 14:50 13:55 Perla Cota, RN is Primary Nurse. aa5 aa5
[2019-04-13 14:38] VITALS: BP 133/62; TEMP 98.8; O2SAT 100
== END 2019-04-13 14:13 | disposition home or self-care (01) ==
LOC: ER 12:52
DX: R68.84 Jaw pain (principal); I27.20 Pulmonary hypertension, unspecified; Z88.2 Allergy status to sulfonamides; Z88.6 Allergy status to analgesic agent
CPT/HCPCS: 99282

== ENCOUNTER 2020-01-08 13:52 | Emergency (ER) | payer OTHER ==
--- NOTE | 2020-01-08 14:41 | EDPHYS ---
Physician Documentation [facility] Name: Ashley Teague Age: 69 yrs Sex: Female : 1950 Arrival Date: 01/08/2020 Time: 13:58 Bed 8 Private MD: ED Physician Humberto Gamble HPI: 01/07 14:29 This 69 yrs old Female presents to ER via Ambulatory with complaints of Blood rn Pressure Problem. 14:29 Reports "years of difficult to control blood pressure", states for last week or so even rn more difficult to control, shows me pictures of wrist blood pressure cuff, some 2 readings in 140s-160 range systolic with diastolic 70s-90s, 2 other readings taken around the same time show readings of 205/195, and another with diastolic in 140s. Pt reports called nurse hotline and told to come in for evaluation as she reported ankle swelling, intermittent sob. . Severity of symptoms: At their worst the symptoms were moderate in the emergency department the symptoms have improved. The patient has experienced similar episodes in the past. The patient has not recently seen a physician. Historical: - Allergies: 14:09 Percodan; ll1 14:09 Sulfa (Sulfonamide Antibiotics); ll1 - PMHx: 14:09 CVA; Hypertension; PULMONARY HYPERTENSION; Sleep Apnea; SVT; VASCULAR DEMENTIA; ll1 - PSHx: 14:09 Appendectomy; breast tumor; Hysterectomy; lap band; Gastric Bypass; Tubal ligation; ll1 Cholecystectomy; rotator cuff; ganglion cyst; Knee surgery; ankle; - Immunization history:: Flu vaccine is up to date. - Social history:: Smoking status: Patient/guardian denies using tobacco, Patient uses alcohol, only on a social basis. Patient/guardian denies using street drugs, tobacco products. - Family history:: not pertinent. - Hospitalizations: : No recent hospitalization is reported. ROS: 14:29 Constitutional: Negative for fever, chills, and weight loss, Eyes: Negative for injury, rn pain, redness, and discharge, Neck: Negative for injury, pain, and swelling, Cardiovascular: Negative for chest pain, palpitations Respiratory: Negative for wheezing, and pleuritic chest pain, + sob and cough Abdomen/GI: Negative for abdominal pain, nausea, vomiting, diarrhea, and constipation, MS/Extremity: Negative for injury and deformity, Skin: Negative for injury, rash, and discoloration, Neuro: Negative for weakness, numbness, tingling, and seizure, + headache Exam: 14:29 Constitutional: This is a well developed, well nourished patient who is awake, alert, rn and in no acute distress. Ambulatory to room without assistance or difficulty. Dressing herself. Head/Face: Normocephalic, atraumatic. Neuro: Awake and alert, GCS 15, Cerebellar exam normal. Normal gait. Vital Signs: 14:09 BP 146 / 66; Pulse 84; Resp 17; Temp 98.6; Pulse Ox 99% ; Pain 0/10; ll1 MDM: 14:14 Patient medically screened. rn 14:29 Differential Diagnosis malignant HTN, CHF, pulmonary hypertension. Data reviewed: vital rn signs, nurses notes. Refusal of service: The patient/guardian displays adequate decision making capability and despite a detailed discussion of alternatives, benefits, risks, and consequences refuses: CT Scan, all lab tests, Medications, all X-rays. ED course: Unable to complete physical exam other than observational given patient quickly became upset and refused care. This happened after I pointed out that I would like to verify her blood pressure readings given the extreme diastolic readings she got at home and huge swings in BP readings she obtained. I told her we need to compare her wrist cuff to our BP measurements to validate readings and that her machine works. I recommended either way that she needs ct head, cxr, bloodwork to rule out end organ damage from BP given all of her readings are high. She became upset, accused me of not believing her, got very emotional, talked about how her previous gastric diagnosed was missed here at [facility] and that she would like to leave, plans on calling her doctor. I was very nice to her and told her how concerned I was about her symptoms and her elevated BP, she was not amenable to changing her mind and demanded that I leave the room. . Administered Medications: No medications were administered Disposition: 01/08/20 14:40 Patient left the facility after being seen by provider. Preliminary diagnosis is Hypertension. - Patient left due to other. - Condition is Stable. - Problem is chronic. - Symptoms have improved. Signatures: Ryley Hummel RN RN em Nieto, Roman, MD MD rn Lewis, Lynsay, RN RN ll1 Corrections: (The following items were deleted from the chart) 14:46 14:40 01/08/2020 14:40 Patient left the facility after being seen by provider. em Preliminary diagnosis is Hypertension. Reason stated they are leaving due to other. Condition is Stable. Problem is chronic. Symptoms have improved. akil
--- NOTE | 2020-01-08 14:41 | ER ---
Nurse's Notes [facility] Name: Ashley Teague Age: 69 yrs Sex: Female : 1950 Arrival Date: 01/08/2020 Time: 13:58 Bed 8 Private MD: Diagnosis: Hypertension Presentation: 01/07 14:09 Chief complaint: Patient states: High blood pressure today all day. States she has ll1 fluctuating BP for years. + blurred vision. + cough and SOB when BP is elevated. Left hand 3rd digit pain and swelling for 3 days. Coronavirus screen: Proceed with normal triage. Patient reports a cough. Patient denies shortness of breath or difficulty breathing. Patient denies measured and/or subjective temperature greater than 100.4F prior to today's visit. Patient denies travel on a cruise ship or to a country the [facility] currently lists as an affected area. Patient denies contact with known and/or suspected case of COVID-19. Ebola Screen: Patient denies travel to an Ebola-affected area in the 21 days before illness onset. Initial Sepsis Screen: Does the patient meet any 2 criteria? No. Patient's initial sepsis screen is negative. Does the patient have a suspected source of infection? No. Patient's initial sepsis screen is negative. Risk Assessment: Do you want to hurt yourself or someone else? Patient reports no desire to harm self or others. Onset of symptoms was January 08, 2020. 14:09 Method Of Arrival: Ambulatory ll1 14:09 Acuity: SANTIAGO 3 ll1 Historical: - Allergies: 14:09 Percodan; ll1 14:09 Sulfa (Sulfonamide Antibiotics); ll1 - PMHx: 14:09 CVA; Hypertension; PULMONARY HYPERTENSION; Sleep Apnea; SVT; VASCULAR DEMENTIA; ll1 - PSHx: 14:09 Appendectomy; breast tumor; Hysterectomy; lap band; Gastric Bypass; Tubal ligation; ll1 Cholecystectomy; rotator cuff; ganglion cyst; Knee surgery; ankle; - Immunization history:: Flu vaccine is up to date. - Social history:: Smoking status: Patient/guardian denies using tobacco, Patient uses alcohol, only on a social basis. Patient/guardian denies using street drugs, tobacco products. - Family history:: not pertinent. - Hospitalizations: : No recent hospitalization is reported. Assessment: 14:37 General: Appears in no apparent distress. ambulated out of exam room. em Vital Signs: 14:09 BP 146 / 66; Pulse 84; Resp 17; Temp 98.6; Pulse Ox 99% ; Pain 0/10; ll1 ED Course: 13:58 Patient arrived in ED. mr 14:09 Arm band placed on Patient placed in an exam room, on a stretcher. ll1 14:11 Triage completed. ll1 14:14 Humberto Gamble MD is Attending Physician. rn 14:14 Ryley Hummel, RN is Primary Nurse. em Administered Medications: No medications were administered Outcome: 14:37 Eloped from patient exam room, after seeing physician Time discovered patient gone: em January 08, 2020 at 14:37 14:46 Patient left the ED. em Signatures: Maribel Oviedo mr Ryley Hummel, RN RN Humberto Gamble MD MD rn Lewis, Lynsay, RN RN [facility]
--- OUTSIDE RECORDS SUMMARY | 2020-01-08 15:54 | XMS REPORT | Clinical Summary ---
:1950 Author Organization [facility] Address [address] [place] [address] Care Team Providers Name Role Phone Lucia Dudley DO Primary Care Provider Allergies Active Allergy Reactions Severity Noted Date Comments Oxycodone-Aspirin Swelling High 06/26/2019 Tongue swe lling Sulfa (Sulfonamide Other (See Comments) 04/22/2016 W as told had reaction Antibiotics) as a child Medications Medication Sig Dispensed Refills Start Date End Date Status gabapentin Take by mouth 0 Activ e (NEURONTIN) 600 mg nightly. 4 tablet tabs at HS sucralfate Take 1 g by 0 Active (CARAFATE) 1 gram mouth 4 tablet (four) times a day. cholecalciferol, TAKE 1 TABLET 12 capsule 0 12/17/2019 Active vitamin D3, 1,250 (50,000 UNITS mcg (50,000 unit) TOTAL) BY capsule MOUTH ONCE A WEEK FOR 90 DAYS. Ferrocite 324 mg TAKE 1 TABLET 30 each 1 12/23/2019 Active (106 mg iron) BY MOUTH tablet EVERY DAY FOR 30 DAYS clindamycin 0 04/13/2019 06/26/20 Discont inued (CLEOCIN) 300 MG 19 capsule aspirin (ECOTRIN) aspirin 81 mg 0 06/26/20 Discontinued 81 MG enteric tablet,delaye 19 coated tablet d release metoprolol nightly. 0 04/14/2019 07/05/20 Disconti nued succinate XL 19 (Stop T aking at (TOPROL-XL) 50 mg Di olurisaak) 24 hr tablet pantoprazole Take 40 mg by 1 03/30/2019 07/05/20 Di scontinued (PROTONIX) 40 MG EC mouth 2 (two) 19 tablet times a day. sucralfate Take 10 mL (1 1200 mL 1 04/17/2019 05/17/20 Expi red (CARAFATE) 100 g total) by 19 mg/mL suspension mouth 4 (four) times a day for 30 days. multivit-min/iron/f Take by 0 06/26/20 Discontinued olic/lutein mouth. 19 (CENTRUM SILVER WOMEN ORAL) enoxaparin Inject 0.4 mL 5.6 mL 0 07/06/2019 07/20/19 Expi red (LOVENOX) 40 mg/0.4 (40 mg total) 20 mL syringe under the skin daily for 14 days. metoprolol tartrate Take 1 tablet 60 tablet 0 07/05/201908/04 (LOPRESSOR) 25 mg (25 mg total) 20 tablet by mouth 2 (two) times a day for 30 days. traMADol (ULTRAM) Take 0.5 20 tablet 0 07/05/2019 07/15/20 E xpired 50 mg tablets (25 19 tabletIndications: mg total) by acute pain mouth every 6 (six) hours as needed for moderate pain for up to 10 days .acute pain. omeprazole Take 1 30 capsule 0 07/05/2019 07/05/20 Discont inued (PriLOSEC) 40 MG capsule (40 19 ( Reorder) capsule mg total) by mouth daily for 30 days. omeprazole Take 1 30 capsule 0 07/05/2019 08/04/19 (PriLOSEC) 40 MG capsule (40 20 capsule mg total) by mouth daily for 30 days. ondansetron ODT Take 1 tablet 30 tablet 1 07/15/2019 08/14/19 (ZOFRAN ODT) 4 MG (4 mg total) 20 disintegrating by mouth tablet every 8 (eight) hours as needed for nausea or vomiting for up to 30 days. cholecalciferol, Take 1 tablet 4 tablet 2 09/30/2019 12/17/19 Discontinued vitamin D3, 1,250 (50,000 Units 20 mcg (50,000 unit) total) by tablet mouth once a week for 90 days. ferrous fumarate Take 324 mg 30 each 2 09/30/2019 06/08/20 Discontinued 324 mg (106 mg by mouth 20 iron) tablet daily for 30 days. Active Problems Problem Noted Date Marginal ulcer 07/03/2019 Chronic coronary artery disease 04/22/2016 Essential hypertension 04/22/2016 Hyperlipidemia 04/22/2016 Encounters Date Type Specialty Care Team Description 01/01/2020 Orders Only General Surgery Zehra Howell, Bariatric surgery status (Primary Dx); MA Weight loss; Intestinal alcon bsorption, unspecified type; Heart disease, unspecified; Chronic coronar y artery disease; Vitamin deficie ncy; BMI 40.0-44.9, adult ([facility]); Essential hyper tension 01/01/2020 Travel 12/20/2019 Refill General Surgery Candelaria Rush, [place] 12/17/2019 Refill General Surgery Candelaria Rush PA 09/30/2019 Telemedicine General Surgery Candelaria Rush, Weight l oss (Primary Dx); PA Other hyperlipi demia; Essential hyper tension; Obstructive sle ep apnea 09/30/2019 Travel 09/20/2019 Orders Only General Surgery Zehra Howell, Weight lo ss (Primary Dx); MA Intestinal alcon bsorption, unspecified type; Gastric reflux; Chronic coronar y artery disease; Essential hyper tension; Heart disease, unspecified; Other hyperlipi demia; Vitamin deficie ncy; Bariatric surge ry status 09/20/2019 Orders Only General Surgery Zehra Howell, [place] 09/20/2019 Orders Only General Surgery Zehra Howell, [place] 08/19/2019 Telemedicine General Surgery Candelaria Rush, Weight l oss (Primary Dx); PA Essential hyper tension; Obstructive sle ep apnea 07/15/2019 Office Visit General Surgery Candelaria Rush, Morbid o besity (HCC) (Primary Dx); PA Weight loss; Essential hyper tension 07/03/2019 Surgery General Surgery Zackary Abrams, [employer] REVISION MD OF GASTROJEJUNA L ANASTOMOSIS WIT H INTRAOPERATIVE ENDOSCOPY 07/03/2019 Anesthesia Event General Surgery Santi Vang, Melany Garcia, [employer] 07/03/2019 - Hospital Encounter General Surgery Zackary Abrams Mar ginal ulcer; 07/05/2019 Bariatric surge ry status; Weight loss; Essential hyper tension; Chronic coronar y artery disease; Intestinal alcon bsorption, unspecified type; Gastric reflux; Essential hyper tension, benign; Heart disease, unspecified; Hyperlipemia; Sleep apnea 07/01/2019 Prep for Surgery General Surgery Zehra Howell Margi nal ulcer (Primary Dx); TONI Bariatric surge ry status; Weight loss; Essential hyper tension; Chronic coronar y artery disease; Intestinal alcon bsorption, unspecified type 06/26/2019 Pre-Admit Testing Pre-Admission Zackary Abrams Margin al ulcer; Appointment Testing Intestinal alcon bsorption, unspecified type; Bariatric surge ry status; Chronic coronar y artery disease; Essential hyper tension; Weight loss; Pre-operative l aboratory examination 06/26/2019 Orders Only General Surgery Zehra Howell, Marginal ulcer (Primary Dx); TONI Intestinal alcon bsorption, unspecified type; Bariatric surge ry status; Chronic coronar y artery disease; Essential hyper tension; Weight loss; Pre-operative l aboratory examination 06/24/2019 Office Visit General Surgery Zackary Abrams Marginal ulcer (Primary Dx) 04/17/2019 Office Visit General Surgery Zackary Abrams Intestina l malabsorption, unspecified type (Primary Dx); Bariatric surge ry status; Weight loss; Chronic coronar y artery disease; Essential hyper tension; Marginal ulcer after 01/07/2019 Family History Medical History Relation Name Comments Hypertension Brother Ulcers Brother Arthritis Father Diabetes Father Lung cancer Father Breast cancer Mother Heart disease Mother Hypertension Mother Other Mother coronary artery bypass graft Ulcers Mother Relation Name Status Comments Brother Father Mother Alive Social History Tobacco Use Types Packs/Day Years Used Date Never Smoker Smokeless Tobacco: Never Used Alcohol Use Drinks/Week oz/Week Comments Yes 1-2 Standard drinks or equivalent 1.0 - 2.0 1-2 monthly Sex Assigned at Date Recorded Female 09/30/2019 9:07 AM CDT Job Start Date Occupation Industry Not on file Not on file Not on file Travel History Travel Start Travel End No recent travel history available. COVID-19 Exposure Response Date Recorded In the last month, have you been in contact Unable to assess 01/01/2020 11:00 AM CDT with someone who was confirmed or suspected to have Coronavirus / COVID-19? Last Filed Vital Signs Vital Sign Reading Time Taken Comments Blood Pressure 150/76 07/15/2019 1:36 PM [facility] Pulse 83 07/15/2019 1:36 PM [facility] Temperature 36.7 C (98 F) 07/15/2019 1:36 PM [facility] Respiratory Rate 18 07/05/2019 11:50 AM [facility] Oxygen Saturation 98% 07/15/2019 1:36 PM [facility] Inhaled Oxygen Concentration - - Weight 105 kg (230 lb 6.4 oz) 07/15/2019 1:36 PM [facility] Height 167.6 cm (5' 6") 07/15/2019 1:36 PM [facility] Body Mass Index 37.19 07/15/2019 1:36 PM [facility] Plan of Treatment Date Type Specialty Care Team Description 01/13/2020 Telemedicine General Surgery Candelaria Rush, [place] [address] [place], [place] [address] [phone] Health Maintenance Due Date Last Done Comments BREAST CANCER SCREENING 2000 COLONOSCOPY SCREENING 2000 SHINGLES VACCINES (#1) 2000 65+ PNEUMOCOCCAL VACCINE (1 of 2 - PCV13) 2015 INFLUENZA VACCINE 02/15/2020 08/15/2019 Procedures Procedure Name Priority Date/Time Associated Comments Diagnosis T3 Routine 09/21/2019 8:48 Weight loss Results for this AM [facility] Intestinal procedure are i n malabsorption, the results unspecified type section. Gastric reflux Chronic coronary artery disease Essential hypertension Heart disease, unspecified Other hyperlipidemia Vitamin deficien cy Bariatric surgery status ZINC LEVEL, SERUM Routine 09/21/2019 8:48 Weight loss Results for this AM [facility] Intestinal procedure are i n malabsorption, the results unspecified type section. Gastric reflux Chronic coronary artery disease Essential hypertension Heart disease, unspecified Other hyperlipidemia Vitamin deficien cy Bariatric surgery status VITAMIN B1 LEVEL, WHOLE Routine 09/21/2019 8:48 Weight loss Results for this BLOOD AM [facility] Intestinal procedure are i n malabsorption, the results unspecified type section. Gastric reflux Chronic coronary artery disease Essential hypertension Heart disease, unspecified Other hyperlipidemia Vitamin deficien cy Bariatric surgery status FERRITIN LEVEL Routine 09/21/2019 8:48 Weight loss Results for this AM [facility] Intestinal procedure are i n malabsorption, the results unspecified type section. Gastric reflux Chronic coronary artery disease Essential hypertension Heart disease, unspecified Other hyperlipidemia Vitamin deficien cy Bariatric surgery status FOLATE LEVEL Routine 09/21/2019 8:48 Weight loss Results for this AM [facility] Intestinal procedure are i n malabsorption, the results unspecified type section. Gastric reflux Chronic coronary artery disease Essential hypertension Heart disease, unspecified Other hyperlipidemia Vitamin deficien cy Bariatric surgery status COPPER LEVEL, SERUM Routine 09/21/2019 8:48 Weight loss Results for this AM [facility] Intestinal procedure are i n malabsorption, the results unspecified type section. Gastric reflux Chronic coronary artery disease Essential hypertension Heart disease, unspecified Other hyperlipidemia Vitamin deficien cy Bariatric surgery status VITAMIN D 25 HYDROXY Routine 09/21/2019 8:48 Weight los s Results for this LEVEL AM [facility] Intestinal procedure are i n malabsorption, the results unspecified type section. Gastric reflux Chronic coronary artery disease Essential hypertension Heart disease, unspecified Other hyperlipidemia Vitamin deficien cy Bariatric surgery status VITAMIN B12 LEVEL Routine 09/21/2019 8:48 Weight loss Results for this AM [facility] Intestinal procedure are i n malabsorption, the results unspecified type section. Gastric reflux Chronic coronary artery disease Essential hypertension Heart disease, unspecified Other hyperlipidemia Vitamin deficien cy Bariatric surgery status VITAMIN A LEVEL, PLASMA Routine 09/21/2019 8:48 Weight loss Results for this OR SERUM AM [facility] Intestinal procedure are i n malabsorption, the results unspecified type section. Gastric reflux Chronic coronary artery disease Essential hypertension Heart disease, unspecified Other hyperlipidemia Vitamin deficien cy Bariatric surgery status CBC WITH PLATELET AND Routine 09/21/2019 8:48 Weight lo ss Results for this DIFFERENTIAL AM [facility] Intestinal procedure are i n malabsorption, the results unspecified type section. Gastric reflux Chronic coronary artery disease Essential hypertension Heart disease, unspecified Other hyperlipidemia Vitamin deficien cy Bariatric surgery status PARATHYROID HORMONE Routine 09/21/2019 8:48 Weight loss Results for this AM [facility] Intestinal procedure are i n malabsorption, the results unspecified type section. Gastric reflux Chronic coronary artery disease Essential hypertension Heart disease, unspecified Other hyperlipidemia Vitamin deficien cy Bariatric surgery status THYROID STIMULATING Routine 09/21/2019 8:48 Weight loss Results for this HORMONE AM [facility] Intestinal procedure are i n malabsorption, the results unspecified type section. Gastric reflux Chronic coronary artery disease Essential hypertension Heart disease, unspecified Other hyperlipidemia Vitamin deficien cy Bariatric surgery status T4, FREE Routine 09/21/2019 8:48 Weight loss Results for this AM [facility] Intestinal procedure are i n malabsorption, the results unspecified type section. Gastric reflux Chronic coronary artery disease Essential hypertension Heart disease, unspecified Other hyperlipidemia Vitamin deficien cy Bariatric surgery status TOTAL IRON BINDING Routine 09/21/2019 8:48 Weight loss Results for this CAPACITY AM [facility] Intestinal procedure are i n malabsorption, the results unspecified type section. Gastric reflux Chronic coronary artery disease Essential hypertension Heart disease, unspecified Other hyperlipidemia Vitamin deficien cy Bariatric surgery status LIPID PANEL Routine 09/21/2019 8:48 Weight loss Results for this AM [facility] Intestinal procedure are i n malabsorption, the results unspecified type section. Gastric reflux Chronic coronary artery disease Essential hypertension Heart disease, unspecified Other hyperlipidemia Vitamin deficien cy Bariatric surgery status COMPREHENSIVE METABOLIC Routine 09/21/2019 8:48 Weight loss Results for this PANEL AM [facility] Intestinal procedure are i n malabsorption, the results unspecified type section. Gastric reflux Chronic coronary artery disease Essential hypertension Heart disease, unspecified Other hyperlipidemia Vitamin deficien cy Bariatric surgery status URINALYSIS, MICRO UA Routine 09/18/2019 8:16 Marginal u lcer Results for this SCREEN WITH MICROSCOPY AM [facility] Intestinal proce dure are in malabsorption, the results unspecified type section. Bariatric surgery status Chronic coronary artery disease Essential hypertension Weight loss Pre-operative laboratory examination PT AND PTT Routine 09/18/2019 8:16 Marginal ulcer Results for this AM [facility] Intestinal procedure are i n malabsorption, the results unspecified type section. Bariatric surgery status Chronic coronary artery disease Essential hypertension Weight loss Pre-operative laboratory examination HC COMPLETE BLD COUNT Routine 07/04/2019 4:06 Re sults for this W/AUTO DIFF AM [facility] procedure are i n the results section. ESTIMATED GFR Routine 07/04/2019 4:00 Results fo r this AM [facility] procedure are i n the results section. BASIC METABOLIC PANEL Routine 07/04/2019 4:00 Re sults for this AM [facility] procedure are i n the results section. HC COMPLETE BLD COUNT Routine 07/03/2019 6:39 Re sults for this W/AUTO DIFF PM [facility] procedure are i n the results section. ESTIMATED GFR Routine 07/03/2019 5:46 Results fo r this PM [facility] procedure are i n the results section. BASIC METABOLIC PANEL Routine 07/03/2019 5:46 Re sults for this PM [facility] procedure are i n the results section. NM AN ELECTIVE Routine 07/03/2019 2:52 Results f or this ENDOTRACHEAL AIRWAY PM [facility] procedur e are in the results section. GASTROENTEROSTOMY, 07/03/2019 2:19 Marginal ulc er MAY-EN-Y, PM [facility] Gastric reflux LAPAROSCOPIC, WITH Essential INTRAOPERATIVE hypertension, ENDOSCOPY benign Heart disease, unspecified Hyperlipemia Sleep apnea Special Needs BMI 38.83 SURGICAL PATHOLOGY Routine 07/03/2019 8:25 Resul ts for this REQUEST AM [facility] procedure are i n the results section. GRAM STAIN Routine 06/26/2019 4:54 Results for this PM [facility] procedure are i n the results section. URINE CULTURE Routine 06/26/2019 4:54 Results fo r this PM [facility] procedure are i n the results section. HC COMPLETE BLD COUNT Routine 06/26/2019 4:05 Marginal ulcer Results for this W/AUTO DIFF PM [facility] Intestinal procedure are i n malabsorption, the results unspecified type section. Bariatric surgery status Chronic coronary artery disease Essential hypertension Weight loss Pre-operative laboratory examination PROTHROMBIN TIME WITH Routine 06/26/2019 4:05 Marginal ulcer Results for this INR PM [facility] Intestinal procedure are i n malabsorption, the results unspecified type section. Bariatric surgery status Chronic coronary artery disease Essential hypertension Weight loss Pre-operative laboratory examination ECG 12-LEAD Routine 06/26/2019 4:04 Marginal ulcer Results for this PM [facility] Intestinal procedure are i n malabsorption, the results unspecified type section. Bariatric surgery status Chronic coronary artery disease Essential hypertension Weight loss Pre-operative laboratory examination URINALYSIS SCREEN AND Routine 06/26/2019 3:03 Pre-operative R esults for this MICROSCOPY, WITH PM [facility] laboratory procedure a re in REFLEX TO CULTURE examination the result s section. PARTIAL THROMBOPLASTIN Routine 06/26/2019 3:03 Pre-operative Results for this TIME (PTT) PM [facility] laboratory procedure are i n examination the results section. ESTIMATED GFR Routine 06/26/2019 2:58 Results fo r this PM [facility] procedure are i n the results section. COMPREHENSIVE Routine 06/26/2019 2:58 Marginal ulcer Results for this METABOLIC PANEL PM [facility] Intestinal procedure ar e in malabsorption, the results unspecified type section. Bariatric surgery status Chronic coronary artery disease Essential hypertension Weight loss Pre-operative laboratory examination T3 Routine 06/12/2019 9:47 Intestinal Results for this AM [facility] malabsorption, procedure are in unspecified type the results Bariatric surgery section. status Weight loss Chronic coronary artery disease Essential hypertension ZINC LEVEL, SERUM Routine 06/12/2019 9:47 Intestinal Result s for this AM [facility] malabsorption, procedure are in unspecified type the results Bariatric surgery section. status Weight loss Chronic coronary artery disease Essential hypertension VITAMIN B1 LEVEL, Routine 06/12/2019 9:47 Intestinal Result s for this WHOLE BLOOD AM [facility] malabsorption, procedure are in unspecified type the results Bariatric surgery section. status Weight loss Chronic coronary artery disease Essential hypertension FERRITIN LEVEL Routine 06/12/2019 9:47 Intestinal Results f or this AM [facility] malabsorption, procedure are in unspecified type the results Bariatric surgery section. status Weight loss Chronic coronary artery disease Essential hypertension FOLATE LEVEL Routine 06/12/2019 9:47 Intestinal Results for this AM [facility] malabsorption, procedure are in unspecified type the results Bariatric surgery section. status Weight loss Chronic coronary artery disease Essential hypertension COPPER LEVEL, SERUM Routine 06/12/2019 9:47 Intestinal Resu lts for this AM [facility] malabsorption, procedure are in unspecified type the results Bariatric surgery section. status Weight loss Chronic coronary artery disease Essential hypertension VITAMIN D 25 HYDROXY Routine 06/12/2019 9:47 Intestinal Res ults for this LEVEL AM [facility] malabsorption, procedure are in unspecified type the results Bariatric surgery section. status Weight loss Chronic coronary artery disease Essential hypertension VITAMIN B12 LEVEL Routine 06/12/2019 9:47 Intestinal Result s for this AM [facility] malabsorption, procedure are in unspecified type the results Bariatric surgery section. status Weight loss Chronic coronary artery disease Essential hypertension VITAMIN A LEVEL, Routine 06/12/2019 9:47 Intestinal Results for this PLASMA OR SERUM AM [facility] malabsorption, procedure are in unspecified type the results Bariatric surgery section. status Weight loss Chronic coronary artery disease Essential hypertension CBC WITH PLATELET AND Routine 06/12/2019 9:47 Intestinal Re sults for this DIFFERENTIAL AM [facility] malabsorption, procedure are in unspecified type the results Bariatric surgery section. status Weight loss Chronic coronary artery disease Essential hypertension PARATHYROID HORMONE Routine 06/12/2019 9:47 Intestinal Resu lts for this AM [facility] malabsorption, procedure are in unspecified type the results Bariatric surgery section. status Weight loss Chronic coronary artery disease Essential hypertension HEMOGLOBIN A1C Routine 06/12/2019 9:47 Intestinal Results f or this AM [facility] malabsorption, procedure are in unspecified type the results Bariatric surgery section. status Weight loss Chronic coronary artery disease Essential hypertension THYROID STIMULATING Routine 06/12/2019 9:47 Intestinal Resu lts for this HORMONE AM [facility] malabsorption, procedure are in unspecified type the results Bariatric surgery section. status Weight loss Chronic coronary artery disease Essential hypertension T4, FREE Routine 06/12/2019 9:47 Intestinal Results for this AM [facility] malabsorption, procedure are in unspecified type the results Bariatric surgery section. status Weight loss Chronic coronary artery disease Essential hypertension TOTAL IRON BINDING Routine 06/12/2019 9:47 Intestinal Resul ts for this CAPACITY AM [facility] malabsorption, procedure are in unspecified type the results Bariatric surgery section. status Weight loss Chronic coronary artery disease Essential hypertension LIPID PANEL Routine 06/12/2019 9:47 Intestinal Results for this AM [facility] malabsorption, procedure are in unspecified type the results Bariatric surgery section. status Weight loss Chronic coronary artery disease Essential hypertension COMPREHENSIVE Routine 06/12/2019 9:47 Intestinal Results fo r this METABOLIC PANEL AM [facility] malabsorption, procedure are in unspecified type the results Bariatric surgery section. status Weight loss Chronic coronary artery disease Essential hypertension after 01/07/2019 Results Total iron binding capacity (09/21/2019 8:48 AM [facility])Only the most recent of2 resultswithin the time period is included. Pathologist Sig nature Iron level 47 45 - 160 mcg/dL [facility] Iron binding capacity 375 250 - 450 [facility] mcg/dL (calc) [facility] Iron saturation 13 (L) 16 - 45 % [facility] (calc) [facility] Specimen Blood Narrative Performed At FASTING:YES Classting PATIENT REFUSED SOME TESTING; PATIENT EN COURAGED TO RETURN. FASTING: YES Resulting Agency Comment Performing Organization Information: Site ID: [id number] Address: [address] [place] [id number] Director: Franky Galvez Performing Organization Address City/State/Zipcode Phone Number [facility] [address] [place] [phone] Copper level, serum (09/21/2019 8:48 AM [facility])Only the most recent of2 results within the time period is included. Copper 152 70 - 175 [facility] Comment: mcg/dL [facility] This test was developed and its analytical performance characteristics have been determined by [facility]. It has not been cleared or approved by [facility] FDA. This assay has been validated pursuant to the [place] regulations and is used for clinical purposes. Specimen Blood Narrative Performed At FASTING:YES Classting PATIENT REFUSED SOME TESTING; PATIENT EN COURAGED TO RETURN. FASTING: YES Resulting Agency Comment Performing Organization Information: Site ID: [id number] Name: [facility] Address: [address] [place] [address] Director: Negro Du M.D., Ph. D Performing Organization Address [facility] Phone Number [facility] [id number] [place] [phone] Vitamin B1 level, whole blood (09/21/2019 8:48 AM [facility])Only the most recent of2 resultswithin the time period is included. Vitamin B1, 106 78 - 185 [facility] whole blood Comment: nmol/L FULLER PAULO Vitamin supplementation within 24 hours prior to blood draw may affect the accuracy of results. This test was developed and its analytical performance characteristics have been determined by [facility]. It has not been cleared or approved by [facility] FDA. This assay has been validated pursuant to the [place] regulations and is used for clinical purposes. Specimen Blood Narrative Performed At FASTING:YES [facility]ST PATIENT REFUSED SOME TESTING; PATIENT EN COURAGED TO RETURN. FASTING: YES Resulting Agency Comment Performing Organization Information: Site ID: [facility] Name: [facility] Address: [id number] [place] [phone] Director: Negro Du M.D., Ph. D Performing Organization Address [facility] Phone Number RisparmioSuper YATAHEY [phone] [place] [phone] Zinc level, serum (09/21/2019 8:48 AM WELT ROUGHER)Only the most recent of2 results within the time period is included. Zinc 76 60 - 130 [facility] Comment: mcg/dL FULLERTEGAN BATES This test was developed and its analytical performance characteristics have been determined by [employer]. It has not been cleared or approved by [facility] FDA. This assay has been validated pursuant to the CLI A regulations and is used for clinical purposes. Specimen Blood Narrative Performed At FASTING:YES [facility] PATIENT REFUSED SOME TESTING; PATIENT EN COURAGED TO RETURN. FASTING: YES Resulting Agency Comment Performing Organization Information: Site ID: [facility] Name: [facility] Address: [address] [place] [phone] Director: Negro Du M.D., Ph. D Performing Organization Address [facility] Phone Number Auto I.D.OLS YATAHEY [phone] [place] [address] Vitamin A level, plasma or serum (09/21/2019 8:48 AM WELT ROUGHER)Only the most recent of2 resultswithin the time period is included. [facility] Vitamin A 41 38 - 98 [employer] (retinol) Comment: mcg/dL BRAYDON BATES Clin Chem Vol. 34.No.8. [id number]. 1998 Vitamin supplementation within 24 hours prior to blood draw may affect the accuracy of results. This test was developed and its analytical performance characteristics have been determined by [employer]. It has not been cleared or approved by [facility] FDA. This assay has been validated pursuant to the CLI A regulations and is used for clinical purposes. Specimen Blood Narrative Performed At FASTING:YES [facility] PATIENT REFUSED SOME TESTING; PATIENT EN COURAGED TO RETURN. FASTING: YES Resulting Agency Comment Performing Organization Information: Site ID: [facility] Name: [facility] Pharma[facility]raydon d[facility] Address: [address] [place] [phone] Director: Negro Du M.D., Ph. D Performing Organization Address City/State/Zipcode Phone Number [place] [facility] FELICITY FULLER [address] [address] Vitamin D 25 hydroxy level (09/21/2019 8:48 AM WELT ROUGHER)Only the most recent of2 resultswithin the time period is included. [facility] Vitamin D, 13 (L) 30 - 100 [employer] 25-hydroxy Comment: ng/mL MAIN Vitamin D Status 25-OH Vitamin D: Deficiency: <20 ng/mL Insufficiency: 20 - 29 ng/mL Optimal: > or = 30 ng/mL For 25-OH Vitamin D testing on patients on D2-supplementation and patients for whom quantitation of D2 and D3 fractions is required, the QuestAssureD(T M) 25-OH VIT D, (D2,D3), LC/MS/MS is recommended: order code 50521 (patients >2yrs). For more information on this test, go to: http://education.Cavis microcaps/faq/TIE797 (This link is being provided for informational/educational purposes only.) Specimen Blood Narrative Performed At FASTING:YES [facility] PATIENT REFUSED SOME TESTING; PATIENT EN COURAGED TO RETURN. FASTING: YES Resulting Agency Comment Performing Organization Information: Site ID: [facility] Name: [facility] Address: [address] [place] [phone] Director: Franky Galvez Performing Organization Address City/State/Zipcode Phone Number [place] GUE[facility]A [facility] [address] [place] [address] CBC with platelet and differential (09/21/2019 8:48 AM WELT ROUGHER)Only the most recent of5 resultswithin the time period is included. WBC 4.5 3.8 - 10.8 [facility] Thousand/uL [place] RBC 4.40 3.80 - 5.10 [facility] Million/uL [place] HGB 10.7 (L) 11.7 - 15.5 [facility] g/dL [place] HCT 34.8 (L) 35.0 - 45.0 % [facility] [place] MCV 79.1 (L) 80.0 - 100.0 fL [facility] [place] MCH 24.3 (L) 27.0 - 33.0 pg [facility] [place] MCHC 30.7 (L) 32.0 - 36.0 [facility] g/dL [place] RDW 15.3 (H) 11.0 - 15.0 % [facility] [place] Platelet count 318 140 - 400 [facility] Thousand/uL [place] MPV 11.4 7.5 - 12.5 fL [facility] [place] Neutrophils, absolute 2,507 1,500 - 7,800 [facility] cells/uL [place] Lymphocytes, absolute 1,355 850 - 3,900 [facility] cells/uL [place] Monocytes, absolute 360 200 - 950 [facility] cells/uL [place] Eosinophils, absolute 230 15 - 500 [facility] cells/uL [place] Basophils, absolute 50 0 - 200 [facility] cells/uL [place] Neutrophils 55.7 % [facility] [place] Lymphocytes 30.1 % [facility] [place] Monocytes 8.0 % [facility] [place] Eosinophils 5.1 % [facility] [place] Basophils + RC 1.1 % [facility] [place] Specimen Blood Narrative Performed At FASTING:YES [facility] PATIENT REFUSED SOME TESTING; PATIENT EN COURAGED TO RETURN. FASTING: YES Resulting Agency Comment Performing Organization Information: Site ID: [facility] Name: [facility] Address: [address] [place] [phone] Director: Franky Galvez Performing Organization Address City/State/[place] [address] T3 (09/21/2019 8:48 AM WELT ROUGHER)Only the most recent of2 resultswithin the time period is included. Pathologist Sig nature T3 123 76 - 181 ng/dL [employer] [place] Specimen Blood Narrative Performed At FASTING:YES [facility] PATIENT REFUSED SOME TESTING; PATIENT EN COURAGED TO RETURN. FASTING: YES Resulting Agency Comment Performing Organization Information: Site ID: [facility] Name: [facility] Address: [address] [place] [phone] Director: Franky Galvez Performing Organization Address [facility] Phone Number [facility] [place] [phone] Thyroid stimulating hormone (09/21/2019 8:48 AM WELT ROUGHER)Only the most recent of2 resultswithin the time period is included. Pathologist Sig nature TSH 4.07 0.40 - 4.50 mIU/L [facility] ON Specimen Blood Narrative Performed At FASTING:YES [facility] PATIENT REFUSED SOME TESTING; PATIENT EN COURAGED TO RETURN. FASTING: YES Resulting Agency Comment Performing Organization Information: Site ID: [facility] Name: [facility] Address: [address] [place] [phone] Director: Franky Galvez Performing Organization Address [facility] [place] [address] T4, free (09/21/2019 8:48 AM WELT ROUGHER)Only the most recent of2 resultswithin the time period is included. Pathologist Sig nature T4, free 1.0 0.8 - 1.8 ng/dL [employer] [place] Specimen Blood Narrative Performed At FASTING:YES [facility] PATIENT REFUSED SOME TESTING; PATIENT EN COURAGED TO RETURN. FASTING: YES Resulting Agency Comment Performing Organization Information: Site ID: [facility] Name: [facility] Address: [address] [place] [phone] Director: Franky Galvez Performing Organization Address [facility] Phone Number [facility] [place] [phone] Parathyroid hormone (09/21/2019 8:48 AM WELT ROUGHER)Only the most recent of2 results within the time period is included. PTH 42 14 - 64 pg/mL [place] Comment: [facility] Interpretive Guide Intact PTH Calc ium ---- --- Normal Parathyroid Normal No rmal Hypoparathyroidism Low or Low Normal Low Hyperparathyroidism Primary Normal or High H igh Secondary High Normal or Low Tertiary High High Non-Parathyroid Hypercalcemia Low or Low Normal High Specimen Blood Narrative Performed At FASTING:YES [place]A PATIENT REFUSED SOME TESTING; PATIENT EN COURAGED TO RETURN. FASTING: YES Resulting Agency Comment Performing Organization Information: Site ID: IG Name: [facility] Address: [address] [place] [phone] Director: Dr. Franky pillai Performing Organization Address City/[facility] Cent[facility] Phone Number [place] [employer] [address] Folate level (09/21/2019 8:48 AM WELT ROUGHER)Only the most recent of2 resultswithin the time period is included. Pathologist Sig [facility] Folate 10.6 ng/mL [employer] Comment: [place] Reference Rang e Low: <3.4 Borderline: 3.4-5.4 Normal: >5.4 Specimen Blood Narrative Performed At FASTING:YES [place] PATIENT REFUSED SOME TESTING; PATIENT EN COURAGED TO RETURN. FASTING: YES Resulting Agency Comment Performing Organization Information: Site ID: [facility] Name: [facility] Address: [address] [place] [phone] Director: Franky Galvez Performing Organization Address City/[facility] Centercode Phone Number [employer] [address] [address] Ferritin level (09/21/2019 8:48 AM WELT ROUGHER)Only the most recent of2 resultswithin the time period is included. Pathologist Sig nature Ferritin level 9 (L) 16 - 288 ng/mL [facility] [place] Specimen Blood Narrative Performed At FASTING:YES [facility] PATIENT REFUSED SOME TESTING; PATIENT EN COURAGED TO RETURN. FASTING: YES Resulting Agency Comment Performing Organization Information: Site ID: [facility] Name: [facility] Address: [address] [place] [phone] Director: Franky Galvez Performing Organization Address [facility] Cent[facility]ode Phone Number [facility] [place] [phone] Vitamin B12 level (09/21/2019 8:48 AM WELT ROUGHER)Only the most recent of2 results within the time period is included. Pathologist [facility] Vitamin B12 293 200 - 1,100 [employer] Comment: pg/mL [place] Please Note: Although the reference range for vitamin B12 is 200-1100 pg/mL, it has been reported that betwe en 5 and 10% of patients with values between 200 and 400 pg/mL may experience neuropsychiatric and hematologic abnormalities due to occult B12 deficiency; less than 1% of patients with values above 400 pg/mL will have symp toms. Specimen Blood Narrative Performed At FASTING:YES [facility] PATIENT REFUSED SOME TESTING; PATIENT EN COURAGED TO RETURN. FASTING: YES Resulting Agency Comment Performing Organization Information: Site ID: [facility] Name: [facility] Address: [address] [place] [phone] Director: Franky Galvez Performing Organization Address [facility] Centercode Phone Number [employer] [address] [address] Lipid panel (09/21/2019 8:48 AM WELT ROUGHER)Only the most recent of2 resultswithin the time period is included. Cholesterol, total 198 <200 mg/dL [employer] [place] HDL cholesterol 60 > OR = 50 [facility] mg/dL [place] Triglycerides 118 <150 mg/dL [employer] [place] LDL cholesterol 115 (H) mg/dL (calc) [employer] calculated Comment: [place] Reference range: <100 Desirable range <100 mg/dL for primary prevention; <70 mg/dL for patients with CHD or diabetic patients with > or = 2 CHD risk factors. LDL-C is now calculated using the Roney calculation, which is a validated novel method providi ng better accuracy than the Friedewald equation in the estimation of LDL-C. Benjamín SS et al. THAIS. 2013;310(19): 3594-5311 (http://education.WeatherBug.Sparkroad/faq/WTF187) Cholesterol/HDL 3.3 <5.0 (calc) [facility] ratio [place] Non-HDL cholesterol 138 (H) <130 mg/dL [facility] Comment: (calc) [place] For patients with diabetes plus 1 major ASCVD risk factor, treating to a non-HDL-C goal of <100 mg/dL (LDL-C of <70 mg/dL) is considered a therapeutic option. Specimen Blood Narrative Performed At FASTING:YES [facility] PATIENT REFUSED SOME TESTING; PATIENT EN COURAGED TO RETURN. FASTING: YES Resulting Agency Comment Performing Organization Information: Site ID: [facility] Name: [facility] Mag[facility] osullivan Address: [address] [place] [phone] Director: Franky Galvez Performing Organization Address City/State/Zipcode Phone Number [employer] [address] [address] Comprehensive metabolic panel (09/21/2019 8:48 AM WELT ROUGHER)Only the most recent of3 resultswithin the time period is included. Glucose 106 (H) 65 - 99 [employer] Comment: mg/dL [place] Fasting reference interval For someone without known diabetes, a glucose value between 100 and 125 mg/dL is consistent with prediabetes and should be confirmed with a follow-up test. BUN 12 7 - 25 mg/dL [facility] [place] Creatinine 0.94 0.50 - 0.99 [facility] Comment: mg/dL [place] For patients >49 years of age, the reference limit for Creatinine is approximately 13% higher for people identified as -North Korean. EGFR Non-Afr. 62 > OR = 60 [facility] North Korean mL/min/1.73m [place] 2 EGFR 72 > OR = 60 [facility] [place] mL/min/1.73m [place] 2 BUN/creatinine NOT APPLICABLE 6 - 22 [facility] ratio (calc) [place] Sodium 144 135 - 146 [facility] mmol/L [place] Potassium 4.8 3.5 - 5.3 [facility] mmol/L [place] Chloride 108 98 - 110 [facility] mmol/L [place] CO2 27 20 - 32 [facility] mmol/L [place] Calcium 9.5 8.6 - 10.4 [facility] mg/dL [place] Protein 6.9 6.1 - 8.1 [facility] g/dL [place] Albumin, S 3.9 3.6 - 5.1 [facility] g/dL [place] Globulin, total 3.0 1.9 - 3.7 [facility] g/dL (calc) [place] Albumin/globulin 1.3 1.0 - 2.5 [facility] ratio (calc) [place] Total bilirubin 0.6 0.2 - 1.2 [facility] mg/dL [place] Alkaline 50 37 - 153 U/L [facility] phosphatase [place] AST 14 10 - 35 U/L [facility] [place] ALT 10 6 - 29 U/L [facility] [place] Specimen Blood Narrative Performed At FASTING:YES [facility] PATIENT REFUSED SOME TESTING; PATIENT EN COURAGED TO RETURN. FASTING: YES Resulting Agency Comment Performing Organization Information: Site ID: A Name: [facility] Address: [address] [place] [phone] Director: Franky Galvez Performing Organization Address City/[facility] Centercode Phone Number [facility] [address] [address] PT and PTT (09/18/2019 8:16 AM WELT ROUGHER) PTT 28 22 - 34 sec [employer] Comment: [place] This test has not been validated for monitoring unfractionated heparin therapy. For testing that is validated for this type of therapy, please refer to the Heparin Anti-Xa assay (test code 37713). For additional information, please refer to http://education.Familio/faq/HDN055 (This link is being provided for informational/educational purposes only.) INR 1.0 [facility] Comment: [place] Reference Range 0.9-1.1 Moderate-intensity Warfarin Therapy 2.0-3.0 Higher-intensity Warfarin Therapy 3.0-4.0 Prothrombin time 9.9 9.0 - 11.5 [facility] sec [place] Specimen Blood Narrative Performed At FASTING:YES [facility] FASTING: YES Resulting Agency Comment Performing Organization Information: Site ID: TINYA Name: [facility] Address: [address] [place] [phone] Director: Franky Galvez Performing Organization Address [facility] Centercode Phone Number [facility] [address] [address] Urinalysis, micro UA screen with microscopy (09/18/2019 8:16 AM WELT ROUGHER) WBC, UA 0-5 < OR = 5 /HPF [facility] [place] RBC, UA 0-2 < OR = 2 /HPF [facility] [place] Squamous epithelial 6-10 (A) < OR = 5 /HPF [facility] cells, UA [place] Bacteria, UA FEW (A) NONE SEEN /HPF [facility] [place] Calcium oxalate MODERATE (A) NONE OR FEW [facility] crystals, UA /HPF [place] Hyaline casts, UA NONE SEEN NONE SEEN /LPF [facility] [place] Specimen Urine Narrative Performed At FASTING:YES [facility] FASTING: YES Resulting Agency Comment Performing Organization Information: Site ID: [facility] Name: [facility] Magaly osullivan Address: [address] [place] [phone] Director: Franky Galvez Performing Organization Address City/State/Zipcode Phone Number [facility] [place] [phone] Estimated GFR (07/04/2019 4:00 AM WELT ROUGHER)Only the most recent of3 resultswithin the time period is included. Pathologist [facility] Estimated GFR 67 mL/min/1.73 [facility] Comment: HOSPITAL Catergory Units Interpretation G1 >=90 Normal or high G2 60-89 Mildly decreased G3a 45-59 Mildly to moderately decreas ed G3b 30-44 Moderately to severely decre ased G4 15-29 Severely decreased G5 <15 Kidney failure The eGFR was calculated using the Chronic Kidney Disea se Epidemiology Collaboration (CKD-EPI) equation. Interpretation is based on recommendations of the National Kidney Foundation-Kidney Disease Outcomes Jj lity Initiative (NKF-KDOQI) published in 2014. Specimen Plasma specimen Performing Organization Address City/State/Zipcode Phone Number [facility] DEPARTMENT OF PATHOLOGY AND [address] [place], [place] [address] [address] [address] Basic metabolic panel (07/04/2019 4:00 AM WELT ROUGHER)Only the most recent of2 results within the time period is included. Pathologist Sig nature Sodium 136 135 - 148 mEq/L [facility] L Potassium 4.3 3.5 - 5.0 mEq/L [facility] Chloride 103 98 - 112 mEq/L [facility] CO2 23 (L) 24 - 31 mEq/L [facility] Anion gap 10@ANIO 7 - 15 mEq/L [facility] BUN 10 8 - 23 mg/dL [facility] Creatinine 0.88 0.50 - 0.90 mg/dL [facility] Glucose 148 (H) 65 - 99 mg/dL [facility] Calcium 8.4 (L) 8.8 - 10.2 mg/dL [facility] Specimen Plasma specimen Performing Organization Address City/[facility] Centercode Phone Number [facility] DEPARTMENT OF PATHOLOGY AND [address] [place] [phone] GENOM[address] MED[address] [address] Airway (07/03/2019 2:52 PM WELT ROUGHER) Narrative Performed At Johnny Washburn MD 07/03/2019 2:5 2 PM Airway Performed by: Johnny Washburn MD Authorized by: Johnny Washburn MD Location: OR Urgency: Elective Difficult Airway: Yes Preoxygenated with 100% O2: Yes C-spine Precautions Maintained Throughou t: Yes Mask Ventilation: Easy mask Final Airway Type: Endotracheal airway Final Endotracheal Airway: ETT and amber nforced tube Technique Used: Video laryngoscopy Laryngoscope Blade/Videolaryngoscope Wayne de Size: 3 ETT Size (mm): 7.0 Measured from: Lips ETT to Lips (cm): 21 Placement Verified by: CO2 detection, di rect visualization and equal breath sounds Laryngoscopic view: Grade I - full vie w of glottis Rapid Sequence Induction (RSI): No Modified RSI: No Number of Attempts at Approach: 1 Surgical pathology request (07/03/2019 8:25 AM WELT ROUGHER) [facility] DEPARTMENT OF PATHOLOGY AND GENOMIC MEDICINE Surgical pathology See link below [facility] DEPARTMENT OF report for PDF Lab PATHOLOGY AND Report GENOMIC MEDICINE Result status This is Final [facility] DEPARTMENT OF Report for PATHOLOGY AND [id number] GENOMIC MEDICINE Specimen Performing Organization Address City/[facility] Centercode Phone Number [facility] DEPARTMENT OF PATHOLOGY AND [address] [place] [phone] GENOMIC MEDICINE Gram stain (06/26/2019 4:54 PM WELT ROUGHER) Gram stain result No WBC's or organisms seen. [facility] Comment: HOSPITAL Specimen Information Specimen Source: Urine Specimen Site: Clean catch Specimen Urine Performing Organization Address City/State/Zipcode Phone Number [facility] DEPARTMENT OF PATHOLOGY AND [address] [place] [phone] [place] [phone] Urine culture (06/26/2019 4:54 PM WELT ROUGHER) Pathologist [facility] Urine culture Mixed nadege <=10-3 col/cc [facility] IST isolate Comment: HOSPITAL Specimen Information Specimen Source: Urine Specimen Site: Clean catch Specimen Urine Performing Organization Address City/[facility]/Zipcode Phone Number [facility] DEPARTMENT OF PATHOLOGY AND [address] [place] [address] [place] [phone] Prothrombin time with INR (06/26/2019 4:05 PM WELT ROUGHER) Pathologist [facility] Prothrombin time 12.5 11.5 - 14.5 [facility] INR 1.0 [facility] Comment: [facility] International Normalized Ratio (INR) is a [facility] monitoring tool for patients who are stable on oral anticoagulant therapy. An INR of 2.0-3.0 is suggested for deep vein thrombosis/pulmonary embolism. Specimen Blood Performing Organization Address City/[facility] Centercode Phone Number [facility] DEPARTMENT OF PATHOLOGY AND [address] [place] [address] [phone] [address] ECG 12 lead (06/26/2019 4:04 PM WELT ROUGHER) Pathologist Sig nature Ventricular rate 78 [facility] Atrial rate 78 [facility] NM interval 136 [facility] QRSD interval 90 [facility] QT interval 402 [facility] QTC interval 458 [facility] P axis 1 51 [facility] QRS axis 1 -45 [facility] T wave axis -5 [facility] EKG impression Normal sinus rhythm-Possible Left atrial enlargement-Left anterior fascicular block-Left ventricular hypertrophy-Nonspecific ST abnormality-Abnormal ECG-In automated comparison with ECG of 17-APR-2015 1 [facility] MUSE 1:02,-No significant change was found- Specimen Narrative Performed At This result has an attachment that is no t available. Performing Organization Address City/State/Zipcode Phone Number [facility] MUSE [address] [place] [address] Urinalysis screen and microscopy, with reflex to culture (06/26/2019 3:03 PM WELT ROUGHER) Specimen site Clean catch [facility] Color, UA Yellow [facility] Appearance, UA Clear [facility] Specific gravity, UA 1.023 1.001 - 1.035 [facility] pH, UA 5.0 5.0 - 8.5 [facility] Protein, UA 1+ (A) Negative [facility] Glucose, UA Negative Negative [facility] Ketones, UA Negative Negative [facility] Bilirubin, UA Negative Negative [facility] Blood, UA Negative Negative [facility] Nitrite, UA Negative Negative [facility] Urobilinogen, UA <2.0 <2.0 [facility] Leukocyte esterase, Trace (A) Negative [facility] Epithelial cells, UA 1 /HPF [facility] WBC, UA 2 0 - 4 /HPF [facility] RBC, UA <1 0 - 5 /HPF [facility] Bacteria, UA Few None seen [facility] Yeast, UA None seen [facility] Yeast with None seen [facility] pseudohyphae, [facility] Hyaline casts, UA 4 /LPF [facility] Specimen Urine Performing Organization Address City/[facility] Centercode Phone Number [facility] DEPARTMENT OF PATHOLOGY AND [address] [place] [address] [phone] [address] Partial thromboplastin time, activated (06/26/2019 3:03 PM WELT ROUGHER) PTT 32.5 23.0 - 36.0 [facility] Comment: [facility] PTT therapeutic range for unfractionated heparin is 61.0-112.0 seconds which corresponds to Anti-Xa 0.3-0.7 U/ml. Specimen Blood Performing Organization Address City/State/Zipcode Phone Number [facility] DEPARTMENT OF PATHOLOGY AND [address] [place] [address] [phone] [address] Hemoglobin A1c (06/12/2019 9:47 AM WELT ROUGHER) Hemoglobin A1C 5.9 (H) <5.7 % of [facility] Comment: total Hgb FRITCH For someone without known diabetes, a hemoglobin A1c value between 5.7% and 6.4% is consistent with prediabetes and should be confirmed with a follow-up test. For someone with known diabetes, a value <7% indicates that their diabetes is well controlled. A1c targets should be individualized based on duration of diabetes, age, comorbid conditions, and other considerations. This assay result is consistent with an increased risk of diabetes. Currently, no consensus exists regarding use of hemoglobin A1c for diagnosis of diabetes for children. Specimen Blood Narrative Performed At FASTING:YES [facility] FASTING: YES Resulting Agency Comment Performing Organization Information: Site ID: [id number] Address: [address] [place] [id number] Director: Franky Galvez Performing Organization Address City/State/Zipcode Phone Number [employer] [address] [phone] after 01/07/2019 Insurance Payer Benefit Plan / Subscriber ID Effective Dates Phone Addre ss Type Group MEDICARE MEDICARE PART A AND xxxxxxxxxxx 2015-[place], [place] Medicare B t AETNA AETNA [facility] xxxxxxxxx 2002-[employer] Indemnity INDEMNITY nt (Work) Advance Directives For more information, please contact: [phone] Type Date Recorded 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
--- OUTSIDE RECORDS SUMMARY | 2020-01-08 15:55 | XMS REPORT | Continuity of Care Document ---
:1950 Author Organization [facility] t Address [address] [place] [address] Care Team Providers Name Role Phone Lucia Dudley DO Primary Care Physician Dante MUÑOZ Attending Clinician Unavailable Dhiraj Bryant Attending Clinician Bc DOBBINS Attending Clinician Angie Vang MD Attending Clinician Norma Hanson NP Attending Clinician BC Admitting Clinician Unavailable Payers Payer Name Policy Policy Number Effective Expiration Source Type Date Date MEDICAREMEDICARE PART xxxxxxxxxxx 2015 Leo Watson AND 00:00:00 [facility] [place] AETNAAETNA xxxxxxxxx 2002 [facility] 00:00:00 Mu-Ism INDEMNITYxxxxxxxxx207/2002-PresentOrin ty Problems Condition Condition Condition Status Onset Resolution Last Treating Co mments Source Name Details Category Date Date Treatment Clinician Date Marginal Marginal Disease Active 2018-07 [place] ulcer ulcer 2-18 [facility] 00:00: st 00 Chronic Chronic Disease Active 2015-07 [place] coronary coronary 0-07 Method i artery artery 00:00: st disease disease 00 Essential Essential Disease Active 2015-07 Elicia yu hypertensi hypertensi 0-07 Me thodi on on 00:00: st 00 Hyperlipid Hyperlipid Disease Active 2015-07 H erinn chang emia 0-07 Method[facility] 00:00: st 00 Allergies, Adverse Reactions, Alerts Allergy Allergy Status Severity Reaction(s) Onset Inactive Treating Comm ents Source Name Type Date Date Clinician Oxycodon Propensi Active Swelling 2018-07 Tongue [place] e-Aspiri ty to 08-27 swelling Method i n adverse 00:00: st reaction 00 s to drug Sulfa DA Active U [facility] (Sulfona 03-08 [place] mide 00:00: d Antibiot 00 [facility] ics) [facility] oxycodon DA Active [facility] e 03-08 [place] 00:[facility]: d 00 [facility] aspirin DA Active [facility] 8 [place] 00:[facility]: d 00 [facility] Sulfa Propensi Active Other (See 2015-07 Was told Leo mahoney (Sulfona ty to Comments) 0-07 had Metho di mide adverse 00:00: reaction st Antibiot reaction 00 as a ics) s to child drug Family History Family Member Diagnosis Comments Start Date Stop Date Source Natural brother Hypertension [facility] Natural brother Ulcers [facility] ethodist Natural father Arthritis [place] [facility] Natural father Diabetes [place] [facility] Natural father Lung cancer [facility] ethodist Natural mother Breast cancer [facility] Natural mother Heart disease [facility] Natural mother Hypertension [facility] Natural mother Other [place] [facility] Natural mother Ulcers [facility] thodist Social History Social Habit Start Date Stop Date Quantity Comments Source Sex Assigned At F [facility] ethodist Exposure to Unable to assess [facility] SARS-CoV-2 (event) Alcohol intake 2019-07-15 2019-07-15 Current drinker [place] [facility]m 00:00:00 00:00:00 of alcohol (finding) Alcohol Comment 2019-04-17 2019-04-17 1-2 monthly [facility] 00:00:00 00:00:00 Smoking Status Start Date Stop Date Source Never smoker [place] [facility] Medications Ordered Filled Start Stop Current Ordering Indication Dosage Frequency Signature Comments Components Source Medication Medication Date Date Medication? Clinician (SIG) Name Name Ferrocite 2020-0 Yes TAKE 1 [place] 324 mg (106 6-08 TABLET BY Met hodi mg iron) 00:00: MOUTH st tablet 00 EVERY DAY FOR 30 DAYS cholecalcif Yes TAKE 1 [place] toshia, 6-02 TABLET [facility] vitamin D3, 00:00: (50,000 st 1,250 mcg 00 UNITS (50,000 TOTAL) BY unit) MOUTH ONCE capsule A WEEK FOR 90 DAYS. ferrous 2019- No 324mg QD Take 324 [place] fumarate 3-16 06-08 mg by Methodi 324 mg (106 00:00: 00:[address] mg iron) 00 :00 daily for tablet 30 days. cholecalcif 2019- No 29327I Q7D Take 1 [place] toshia, 3-16 06-02 tablet [facility] vitamin D3, 00:00: 00:00 (50,000 st 1,250 mcg 00 :00 Units (50,000 total) by unit) mouth once tablet a week for 90 days. gabapentin 2018-07 Yes QD Take by [place] (NEURONTIN) 2-30 mouth Methodi 600 mg 13:37: nightly. 4 st tablet 07 tabs at HS sucralfate 2018-07 Yes 1g Q.25D Take 1 g [place] (CARAFATE) 2-30 by mouth 4 Met hodi 1 gram 13:37: (four) st tablet 07 times a day. ondansetron 2018-07- No 4mg Q8H Take 1 Elicia ston ODT (ZOFRAN 2-30 -29 tablet (4 Me thodi ODT) 4 MG 00:00: 23:59 mg total) st disintegrat 00 :00 by mouth ing tablet every 8 (eight) hours as needed for nausea or vomiting for up to 30 days. enoxaparin 2018-07- No 40mg QD Inject 0.4 [place] (LOVENOX) 2-06 08-04 mL (40 mg Meth la 40 mg/0.4 00:00: 23:59 total) st mL syringe 00 :00 under the skin daily for 14 days. metoprolol 2018-07- No 25mg Q.5D Take 1 [place] tartrate 2-20 -19 tablet (25 Meth la (LOPRESSOR) 00:00: 23:59 mg total) st 25 mg 00 :00 by mouth 2 tablet (two) times a day for 30 days. omeprazole 2018-07- No 40mg QD Take 1 [place] (PriLOSEC) 09-05- capsule Metho di 40 MG 00:00: 23:59 ([address] capsule 00 :00 total) by mouth daily for 30 days. traMADol 2018-07- No acute pain 25mg Q6H Take 0.5 [place] (ULTRAM) 50 09-05 12-30 tablets Meth la mg tablet 00:00: 23:59 ([address] 00 :00 total) by mouth every 6 (six) hours as needed for moderate pain for up to 10 days .acute pain. omeprazole 2018-07 No 40mg QD Take 1 [place] (PriLOSEC) 09-05 capsule Metho di 40 MG 00:00: 00:00 ([address] capsule 00 :00 total) by mouth daily for 30 days. multivit-mi 2018-07- No Take by Leo mahoney n/iron/foli 08-27 12- mouth. Metho di c/lutein 15:12: 00:00 st (CENTRUM 24 :00 SILVER WOMEN ORAL) aspirin 2018-07- No aspirin 81 Elicia ston (ECOTRIN) 08-27- mg Methodi 81 MG 15:11: 00:00 tablet,del st enteric 32 :00 ayed coated release tablet sucralfate 2018-07- No 1g Q.25D Take 10 mL [place] (CARAFATE) 005-17 (1 g Methodi 100 mg/mL 00:00: 23:59 total) by st suspension 00 :00 mouth 4 (four) times a day for 30 days. metoprolol 2018- No QD nightly. Leo mahoney succinate 04-14 Method[facility] XL 00:00: 00:00 st (TOPROL-XL) 00 :00 50 mg 24 hr tablet clindamycin 2018- No [place] (CLEOCIN) 04-13 [facility] 300 MG 00:00: 00:00 st capsule 00 :00 pantoprazol 2018- No 40mg Q.5D Take 40 mg [place] e 03-3020 by mouth 2 Methodi (PROTONIX) 00:00: 00:00 (two) st 40 MG EC 00 :00 times a tablet day. Vital Signs Vital Name Observation Time Observation Value Comments Source Systolic blood 2019-07-15 13:36:00 150 mm[Hg] Denisto n [facility] pressure Diastolic blood 2019-07-15 13:36:00 76 mm[Hg] [place] [facility] pressure Heart rate 2019-07-15 13:36:00 83 /min [place] Freire Body temperature 2019-07-15 13:36:00 36.67 Dalila [place] [facility] Body height 2019-07-15 13:36:00 167.6 cm [place] [facility] Body weight 2019-07-15 13:36:00 104.509 kg [place] [facility] BMI 2019-07-15 13:36:00 37.19 kg/m2 [place] Freire Oxygen saturation in 2019-07-15 13:36:00 98 /min [place] Freire Arterial blood by Pulse oximetry Respiratory rate 2019-07-05 11:50:26 18 /min Denis [place] [facility] Procedures Procedure Date / Time Performing Clinician Source Performed COMPREHENSIVE METABOLIC 2019-09-21 08:48:00 Zackary Abrams PANEL LIPID PANEL 2019-09-21 08:48:00 Zackary Abrams TOTAL IRON BINDING 2019-09-21 08:48:00 Zackary Abrams ethodist CAPACITY T4, FREE 2019-09-21 08:48:00 Zackary Abrams THYROID STIMULATING 2019-09-21 08:48:00 Zackary Abrams HORMONE PARATHYROID HORMONE 2019-09-21 08:48:00 Zackary Abrams CBC WITH PLATELET AND 2019-09-21 08:48:00 Zackary Abrams DIFFERENTIAL VITAMIN A LEVEL, PLASMA OR 2019-09-21 08:48:00 Zackary Abrams SERUM VITAMIN B12 LEVEL 2019-09-21 08:48:00 Zackary Abrams Me thodist VITAMIN D 25 HYDROXY LEVEL 2019-09-21 08:48:00 Zackary Abrams COPPER LEVEL, SERUM 2019-09-21 08:48:00 Zackary Abrams FOLATE LEVEL 2019-09-21 08:48:00 Zackary Abrams odcalista FERRITIN LEVEL 2019-09-21 08:48:00 Zackary Abrams VITAMIN B1 LEVEL, WHOLE 2019-09-21 08:48:00 Zackary Abrams BLOOD ZINC LEVEL, SERUM 2019-09-21 08:48:00 Zackary Abrams Me thodist T3 2019-09-21 08:48:00 Zackary Abrams PT AND PTT 2019-09-18 08:16:00 Zackary Abrams URINALYSIS, MICRO UA 2019-09-18 08:16:00 Zackary Abrams SCREEN WITH MICROSCOPY HC COMPLETE BLD COUNT 2019-07-04 04:06:00 Rick Colon W/AUTO DIFF BASIC METABOLIC PANEL 2019-07-04 04:00:00 Rick Colon ESTIMATED GFR 2019-07-04 04:00:00 Rick Colon HC COMPLETE BLD COUNT 2019-07-03 18:39:00 Rick Colon W/AUTO DIFF BASIC METABOLIC PANEL 2019-07-03 17:46:00 Rick Colon ESTIMATED GFR 2019-07-03 17:46:00 Rick Colon IA AN ELECTIVE 2019-07-03 14:52:02 Johnny Washburn ENDOTRACHEAL AIRWAY GASTROENTEROSTOMY, 2019-07-03 14:19:00 Zackary Abrams M ethodist MAY-EN-Y, LAPAROSCOPIC, WITH INTRAOPERATIVE ENDOSCOPY SURGICAL PATHOLOGY REQUEST 2019-07-03 08:25:00 Zackary Abrams URINE CULTURE 2019-06-26 16:54:00 Zackary Abrams GRAM STAIN 2019-06-26 16:54:00 Zackary Abrams PROTHROMBIN TIME WITH INR 2019-06-26 16:05:00 Zackary Abrams HC COMPLETE BLD COUNT 2019-06-26 16:05:00 Zackary Abrams W/AUTO DIFF ECG 12-LEAD 2019-06-26 16:04:27 Zackary Abrams PARTIAL THROMBOPLASTIN 2019-06-26 15:03:00 Zackary Abrams on [facility]m TIME (PTT) URINALYSIS SCREEN AND 2019-06-26 15:03:00 Zackary Abrams MICROSCOPY, WITH REFLEX TO CULTURE COMPREHENSIVE METABOLIC 2019-06-26 14:58:00 Zackary Abrams PANEL ESTIMATED GFR 2019-06-26 14:58:00 Zackary Abrams COMPREHENSIVE METABOLIC 2019-06-12 09:47:00 Zackary Abrams PANEL LIPID PANEL 2019-06-12 09:47:00 Zackary Abrams TOTAL IRON BINDING 2019-06-12 09:47:00 Zackary Abrams M ethodist CAPACITY T4, FREE 2019-06-12 09:47:00 Zackary Abrams THYROID STIMULATING 2019-06-12 09:47:00 Zackary Abrams HORMONE HEMOGLOBIN A1C 2019-06-12 09:47:00 Zackary Abrams PARATHYROID HORMONE 2019-06-12 09:47:00 Zackary Abrams CBC WITH PLATELET AND 2019-06-12 09:47:00 Zackary Abrams DIFFERENTIAL VITAMIN A LEVEL, PLASMA OR 2019-06-12 09:47:00 Zackary Abrams SERUM VITAMIN B12 LEVEL 2019-06-12 09:47:00 Zackary Abrams thodi VITAMIN D 25 HYDROXY LEVEL 2019-06-12 09:47:00 Zackary Abrams COPPER LEVEL, SERUM 2019-06-12 09:47:00 Zackary Arbams FOLATE LEVEL 2019-06-12 09:47:00 Zackary Abrams FERRITIN LEVEL 2019-06-12 09:47:00 Zackary Abrams VITAMIN B1 LEVEL, WHOLE 2019-06-12 09:47:00 Zackary Abrams BLOOD ZINC LEVEL, SERUM 2019-06-12 09:47:00 Zackary Abrams Nm thodist T3 2019-06-12 09:47:00 Zackary Abrams Plan of Care Planned Activity Planned Date Details Comments Source Future Scheduled 2020-02-15 INFLUENZA VACCINE Yu Freire Test 00:00:00 [code = INFLUENZA VACCINE] Future Scheduled 2015 65+ PNEUMOCOCCAL [place] [facility] Test 00:00:00 VACCINE (1 of 2 - PCV13) [code = 65+ PNEUMOCOCCAL VACCINE (1 of 2 - PCV13)] Future Scheduled 2000 BREAST CANCER [place] Nm thodist Test 00:00:00 SCREENING [code = BREAST CANCER SCREENING] Future Scheduled 2000 COLONOSCOPY SCREENING Ho [place] [facility] Test 00:00:00 [code = COLONOSCOPY SCREENING] Future Scheduled 2000 SHINGLES VACCINES (#1) H erinn [facility] Test 00:00:00 [code = SHINGLES VACCINES (#1)] Encounters Start End Encounter Admission Attending Care Care Encounter Source Date/Time Date/Time Type Type Clinicians Facility Department ID 2019-09-30 2019-09-30 Outpatient CONCEPCIÓN [facility] [id number] [place] 00:00:00 00:00:00 VENK[address] 2019-07-03 2019-07-05 Outpatient BC [facility] [id number] [place] 00:00:00 00:00:00 ZACKARY [address] Results Test Description Test Time Test Comments Results Result Comments Source Comprehensive metabolic panel 2019-09-26 18:38:00 Test Item Value Reference Range Interpretation Comme nts Glucose (test code = 106 mg/dL 65-99 H F[place] 2345-7) reference inter kristy For someone without known diabetes, a glu cose valuebetween 10 0 and 125 mg/dL is consis tent withprediabetes and should be confi rmed with afollow-up test . BUN (test code = 12 mg/dL 02-07 3094-0) Creatinine (test code = 0.94 mg/dL 0.5-0.99 For patients >49 years of 2160-0) age, the refere nce limitfor Creati nine is approximately 1 3% higher for peopleident ified as -Latoya n. EGFR Non-Afr. Austrian 62 > OR = 60 (test code = 2775) mL/min/1.73m2 EGFR 72 > OR = 60 (test code = 90873-6) mL/min/1.73m2 BUN/creatinine ratio NOT APPLICABLE (calc) (test code = 3097-3) Sodium (test code = 144 mmol/L 209-672 9883-2) Potassium (test code = 4.8 mmol/L 3.5-5.3 3-3) Chloride (test code = 108 mmol/L 98-110 2074-0) CO2 (test code = 27 mmol/L 20-32 2027-9) Calcium (test code = 9.5 mg/dL 8.6-10.4 88489-5) Protein (test code = 6.9 g/dL 6.1-8.1 5-2) Albumin, S (test code = 3.9 g/dL 3.6-5.1 1750-7) Globulin, total (test 3.0 1.9- 3.7 g/dL code = 63518-1) (calc) Albumin/globulin ratio 1.3 1.0- 2.5 (test code = 1759-0) (calc) Total bilirubin (test 0.6 mg/dL 0.2-1.2 code = 1974-) Alkaline phosphatase 50 U/L 37-153 (test code = 6768-6) AST (test code = 14 U/L 10-35 1919-8) ALT (test code = 10 U/L 6-29 1741-6) KAEL (test code = KAEL) FASTING:YESPATIENT REFUSED SOME TESTING; PATIENT ENCOURAGED TO RETURN.FASTING: YES RAC (test code = RAC) Performing Organization Information: Site ID: RGA Name: [facility] [facility] Address: [address] [place] [phone] Director: Franky Galvez Lab Interpretation Abnormal (test code = 80853-4) [place] MethodistLipid [id number] 18:38:00 Test Item Value Reference Range Interpretation Comments Cholesterol, total 198 mg/dL <200 (test code = 2092-3) HDL cholesterol 60 mg/dL > OR = 50 (test code = 2084-9) Triglycerides (test 118 mg/dL <150 code = 257-8) LDL cholesterol 115 mg/dL (calc) H Reference ra nge: calculated (test <100 Desira ble code = 25756-1) range <100 m g/dL for primary prevention; <7 0 mg/dL for patients with C HD or diabetic patients with > or = 2 CHD risk factors. LDL-C is now calculated using the Benjamín-Dye calculation, which is a validated novel method providin g better accuracy than the Friedewald equation in the estimation of LDL-C. Benjamín S S et al. THAIS. 2013;310(19): 9021-1279 (http://educati on .BarnebysDiagnZervei [employer] technologies .com/faq/KWU524 ) Cholesterol/HDL 3.3 <5.0 (calc) ratio (test code = 9830-1) Non-HDL cholesterol 138 <130 mg/dL H For oneal ents with (test code = (calc) diabetes plus 1 13950-1) major ASCVD ris k factor, treatin g to a non-HDL-C goal of <100 mg/dL (LDL-C of <70 mg/dL) is considered a therapeutic option. KAEL (test code = FASTING:YESPATIENT KAEL) REFUSED SOME TESTING; PATIENT ENCOURAGED TO RETURN.FASTING: YES RAC (test code = Performing RAC) Organization Information: Site ID: RGA Name: [facility] Address: [address] [place] [phone] Director: Franky Galvez Lab Interpretation Abnormal (test code = 99651-2) [place] MethodistVitamin B12 [id number] 18:38:00 Test Item Value Reference Interpretation Comments Range Vitamin B12 293 pg/mL 200-1100 Please Note: A lthough the (test code = reference range for 2132-03) bnanhmpO00 is 2 00-1100 pg/mL, it has b een reported that between5 a nd 10% of patients with v alues between 200 and 400pg/m L may experience neur opsychiatric and hematologic abnormalities due to occult B 12 deficiency; les s than 1%of patients with v alues above 400 pg/mL will have symptoms. KAEL (test FASTING:YESPATIEN code = KAEL) T REFUSED SOME TESTING; PATIENT ENCOURAGED TO RETURN.FASTING: YES RAC (test Performing code = RAC) Organization Information: Site ID: RGA Name: [facility] Address: [address] [place] [phone] Director: Franky Galvez [place] MethodistFerritin [id number] 18:38:00 Test Item Value Reference Range Interpretation Comments Ferritin level (test 9 ng/mL 16-288 L code = 2276-4) KAEL (test code = KAEL) FASTING:YESPATIENT REFUSED SOME TESTING; PATIENT ENCOURAGED TO RETURN.FASTING: YES RAC (test code = RAC) Performing Organization Information: Site ID: RGA Name: [facility] Address: [address] [place] [phone] Director: Franky Galvez Lab Interpretation (test Abnormal code = 05117-7) [facility] [id number] 18:38:00 Test Item Value Reference Range Interpretation Comments Folate (test 10.6 ng/mL code = 2284-8) Refer ence Range Lo w: <3.4 Borderline: 3.4-5.4 Normal: >5.4 KAEL (test code FASTING:YESPATIENT = KAEL) REFUSED SOME TESTING; PATIENT ENCOURAGED TO RETURN.FASTING: YES RAC (test code Performing = RAC) Organization Information: Site ID: [place] Name: [facility] Address: [address] [place] [phone] Director: Franky Galvez [place] MethodistParathyroid [id number] 18:38:00 Test Item Value Reference Interpretation Comments Range PTH (test 42 pg/mL 14-64 Interpretive G uide Intact code = PTH 2731-8) Calcium-------- -------Normal P arathyroid Normal NormalHypoparat hyroidism Low or Low Norm al LowHyperparathy roidism Primary Normal or High High Secondary High Normal or Low Tertiary High HighNon-Parathy roid Hypercalcemia Low or Low Normal High KAEL (test FASTING:YESPATIEN code = T REFUSED SOME KAEL) TESTING; PATIENT ENCOURAGED TO RETURN.FASTING: YES RAC (test Performing code = Organization RAC) Information: Site ID: IG Name: [place] [facility] Address: [address] [place] [address] Director: Dr. Franky CosmeistT4, [id number] 18:38:00 Test Item Value Reference Range Interpretation Comments T4, free (test code 1.0 ng/dL 0.8-1.8 = 3024-7) KAEL (test code = FASTING:YESPATIENT REFUSED KAEL) SOME TESTING; PATIENT ENCOURAGED TO RETURN.FASTING: YES RAC (test code = Performing Organization RAC) Information: Site ID: RGA Name: [facility] Address: [address] [place], [place] [id number] Director: Franky Boyel MethodistThyroid stimulating [id number] 18:38:00 Test Item Value Reference Range Interpretation Comments TSH (test code = 4.07 0.40- 4.50 mIU/L 3016-3) KAEL (test code = FASTING:YESPATIENT REFUSED KAEL) SOME TESTING; PATIENT ENCOURAGED TO RETURN.FASTING: YES RAC (test code = Performing Organization RAC) Information: Site ID: RGA Name: [facility] Address: [address] [place] [address] Director: Franky FreireT32020-03-12 18:38:00 Test Item Value Reference Range Interpretation Comments T3 (test code = 123 ng/dL 76-181 3053-6) KAEL (test code = FASTING:YESPATIENT REFUSED KAEL) SOME TESTING; PATIENT ENCOURAGED TO RETURN.FASTING: YES RAC (test code = Performing Organization RAC) Information: Site ID: RGA Name: [facility] [facility] Address: [address] [place] [phone] Director: [facility] with platelet and [id number] 18:38:00 Test Item Value Reference Range Interpretation Comments WBC (test code = 4.5 3.8- 10.8 6690-2) Thousand/uL RBC (test code = 789-8) 4.40 3.80- 5.10 Million/uL HGB (test code = 718-7) 10.7 g/dL 11.7-15.5 L HCT (test code = 34.8 % 35-45 L 4544-3) MCV (test code = 787-2) 79.1 fL 80-100 L MCH (test code = 785-6) 24.3 pg 27-33 L MCHC (test code = 30.7 g/dL 32-36 L 786-4) RDW (test code = 788-0) 15.3 % 11-15 H Platelet count (test 318 140- 400 code = 777-3) Thousand/uL MPV (test code = 776-5) 11.4 fL 7.5-12.5 Neutrophils, absolute 2507 1,500 - 7,800 (test code = 751-8) cells/uL Lymphocytes, absolute 1355 850- 3,900 (test code = 731-0) cells/uL Monocytes, absolute 360 200- 950 cells/uL (test code = 742-7) Eosinophils, absolute 230 15- 500 cells/uL (test code = 711-2) Basophils, absolute 50 0- 200 cells/uL (test code = 704-7) Neutrophils (test code 55.7 % = 770-8) Lymphocytes (test code 30.1 % = 736-9) Monocytes (test code = 8.0 % 5905-5) Eosinophils (test code 5.1 % = 713-8) Basophils + RC (test 1.1 % code = 706-2) KAEL (test code = KAEL) FASTING:YESPATIENT REFUSED SOME TESTING; PATIENT ENCOURAGED TO RETURN.FASTING: YES RAC (test code = RAC) Performing Organization Information: Site ID: RGA Name: [facility] Address: [address] [place] [phone] Director: Franky Galvez Lab Interpretation Abnormal (test code = 48111-9) [place] [facility] 25 hydroxy [id number] 18:38:00 Test Item Value Reference Range Interpretation Comments Vitamin D, 13 ng/mL 30-100 L Vitamin D Statu s 25-hydroxy (test 25-O H code = 1988-) Vitamin D: Deficiency: <2 0 ng/mLInsufficie nc y: 20 - 29 ng/mLOptimal: > o r = 30 ng/mL For 25-OH Vitamin D testing on patients on D2-supplementat io n and patients for whom quantitation of D2 and D3 fractions is required, the QuestAssureD(TM )2 5-OH VIT D, (D2,D3), LC/MS/ MS is recommended: order code 9288 8 (patients >2yrs ). For more information on this test, go to:http://educa ti on.questdiagnos ti entegra technologies.com/faq/FAQ1 63 (This link is being provided for informational/e du cational purpos es only.) KAEL (test code = FASTING:YESPATIENT KAEL) REFUSED SOME TESTING; PATIENT ENCOURAGED TO RETURN.FASTING: YES RAC (test code = Performing RAC) Organization Information: Site ID: RGA Name: [facility] [facility] Lab Address: [address] [place] [address] Director: Franky Galvez Lab Interpretation Abnormal (test code = 51642-7) [place] MethodistVitamin A level, plasma or [id number] 18:38:00 Test Item Value Reference Range Interpretation Comments Vitamin A 41 38- 98 mcg/dL Clin Chem Vo l. (retinol) 34.No.8. [id number] -1628. (test code = 1998Vitamin 2923-1) supplementation within 24 hours prior to blood draw m ay affect the accu racy of results. T his test was develo ped and its analyti selena performance characteristics have been determined by [employer]. It has not been cl eared or approved by theFDA. This as say has been valida estevan pursuant to the CLIA regulations and is used for clinic al purposes. KAEL (test code FASTING:YESPATIENT = KAEL) REFUSED SOME TESTING; PATIENT ENCOURAGED TO RETURN.FASTING: YES RAC (test code Performing = RAC) Organization Information: Site ID: [facility] Name: [place] [facility] Address: [address] [place] [address] Director: Negro Du M.D., Ph.D [place] MethodistZinc level, [id number] 18:38:00 Test Item Value Reference Range Interpretation Comments Zinc (test 76 60- 130 mcg/dL This test wa s code = developed and i ts 5763-8) analytical perf ormance characteristics have been determined by [employer]. It has not been cl eared or approved by theFDA. This assay has been validated pursu ant to the CLIA regula tions and is used for clinical purpos es. KAEL (test FASTING:YESPATIENT code = KAEL) REFUSED SOME TESTING; PATIENT ENCOURAGED TO RETURN.FASTING: YES RAC (test Performing code = RAC) Organization Information: Site ID: [facility] Name: [facility] [facility] Address: [address] [place] [address] Director: Negro Du M.D., Ph.D [place] MethodistVitamin B1 level, whole [id number] 18:38:00 Test Item Value Reference Range Interpretation Comments Vitamin B1, 106 nmol/L 78-185 Vitamin whole blood supplementation (test code = within 24 hours prior 05826-7) toblood draw ma y affect the accu racy of results. T his test was develo ped and its analyti selena performance characteristics have been determined by [employer]. It has not been cl eared or approved by theFDA. This as say has been valida estevan pursuant to the CLIA regulations and is used for clinic al purposes. KAEL (test code FASTING:YESPATIENT = KAEL) REFUSED SOME TESTING; PATIENT ENCOURAGED TO RETURN.FASTING: YES RAC (test code Performing = RAC) Organization Information: Site ID: [facility] Name: [facility] [facility] Address: [address] [place] [address] Director: Negro Du M.D., Ph.D [place] MethodistCopper level, [id number] 18:38:00 Test Item Value Reference Range Interpretation Comments Copper (test 152 70- 175 mcg/dL This test wa s code = developed and i ts 5631-7) analytical perf ormance characteristics have been determined by [employer] . It has not been cl eared or approved by theA. This assay has been validated pursu ant to the CLIA regula tions and is used for clinical purpos es. KAEL (test FASTING:YESPATIENT code = KAEL) REFUSED SOME TESTING; PATIENT ENCOURAGED TO RETURN.FASTING: YES RAC (test Performing code = RAC) Organization Information: Site ID: [facility] Name: [place] [facility] Address: [address] [place] [address] Director: Negro Du M.D., Ph.D [facility] MethodistTotal iron binding [id number] 18:38:00 Test Item Value Reference Range Interpretation Comments Iron level (test code = 47 45- 160 mcg/dL 2498-4) Iron binding capacity 375 250- 450 mcg/dL (test code = 2500-7) (calc) Iron saturation (test 13 16- 45 % (calc) L code = 2502-3) KAEL (test code = KAEL) FASTING:YESPATIENT REFUSED SOME TESTING; PATIENT ENCOURAGED TO RETURN.FASTING: YES RAC (test code = RAC) Performing Organization Information: Site ID: [facility] Name: [place] [facility] Address: [address] [place] [phone] Director: Franky Galvez Lab Interpretation Abnormal (test code = 89143-9) [place] MethodistUrinalysis, micro UA screen with jorskmuqjy7347-69-25 06:44:00 Test Item Value Reference Range Interpretation Comments WBC, UA (test code = 0-5 < OR = 5 /HPF 5821-4) RBC, UA (test code = 0-2 < OR = 2 /HPF 60962-9) Squamous epithelial 6-10 < OR = 5 /HPF A cells, UA (test code = 22741-5) Bacteria, UA (test code FEW NONE SEEN /HPF A = 5769-5) Calcium oxalate MODERATE NONE OR FEW /HPF A crystals, UA (test code = 80521-2) Hyaline casts, UA (test NONE SEEN NONE SEEN /LPF code = 5796-8) KAEL (test code = KAEL) FASTING:YESFASTING: YES RAC (test code = RAC) Performing Organization Information: Site ID: [facility] Name: [place] [facility] Address: [address] [place] [phone] Director: Franky Galvez Lab Interpretation Abnormal (test code = 95621-6) [place] MethodistPT and [id number] 06:44:00 Test Item Value Reference Interpretation Comments Range PTT (test code 28 22- 34 sec This test oconnor s not been = 19303-2) validated for monitoringunfra ctionated heparin therapy . For testing thatis validated for this type o f therapy, please referto the Heparin Anti-Xa assay ( test code 50516). For add itional information, pl ease refer [email or web address] [email or web address]/fa q/PRV675(Thi s link is being provided for informational/e ducational purposes only.) INR (test code 1.0 Reference Ran ge = 6301-6) 0.9-1.1Moderate -intensity Warfarin Therap y 2.0-3.0Higher-i ntensity Warfarin Therap y 3.0-4.0 Prothrombin 9.9 9.0- 11.5 time (test code sec = 5902-2) KAEL (test code FASTING:YESFASTI = KAEL) NG: YES RAC (test code Performing = RAC) Organization Information: Site ID: [facility] Name: [place] [facility] Address: [address] [place] [phone] Director: Franky Galvez [facility] MethodistSurgical pathology [id number] 12:22:03 Test Item Value Reference Range Interpretation Comments Case number (test code = [id number]) Surgical pathology See link below for report (test code = PDF Lab Report [id number]) Result status (test code This is Final Report = [id number]) for [id number] [facility] MethodistBasic metabolic [id number] 05:05:21 Test Item Value Reference Range Interpretation Comments Sodium (test code = 2951-2) 136 135- 148 mEq/L Potassium (test code = 2823-3) 4.3 3.5- 5.0 mEq/L Chloride (test code = 2075-0) 103 98- 112 mEq/L CO2 (test code = 2027-9) 23 24- 31 mEq/L L Anion gap (test code = 92494-6) 10@ANIO 7- 15 mEq/L BUN (test code = 3094-0) 10 mg/dL 8-23 Creatinine (test code = 2160-0) 0.88 mg/dL 0.5-0.9 Glucose (test code = 2345-7) 148 mg/dL 65-99 H Calcium (test code = 35832-0) 8.4 mg/dL 8.8-10.2 L Lab Interpretation (test code = Abnormal 27021-0) [place] MethodistEstimated [id number] 05:05:21 Test Item Value Reference Range Interpretation Comments Estimated GFR (test 67 mL/min/1.73 m2 Caterg ory Units code = 5488) InterpretationG 1 >=90 Normal or highG2 60-89 Mildly mjmmhmpasC0e 45-59 Mildly to mode rately iwjbglrbnK6r 30-44 Moderately to severely decreasedG4 15-29 Severely decre asedG5 <15 Kidn ey failureThe eGFR was calculated pavithra corral the Chronic Kidney Disease Epidemiology Co llaboration (CKD-EPI) equat ion. Interpretation is based on recommendations of the National Kidney Foundation-Kidn ey Disease Outcomes Qualit y Initiative (NKF-KDOQI) pub lished in 2013. [place] ComseOdyjphccmJnbmpz3760-99-51 14:52:02Johnny Washburn MD 07/03/2019 2:52 PMAirwayPerformed by: Johnny Washburn MDAuthorized by: Johnny Washburn MD Location: ORUrgency: ElectiveDifficult Airway: Yes Preoxygenated with 100% O2: Yes C-spine Precautions Maintained Throughout: Yes Mask Ventilation: Easy maskFinal Airway Type: Endotracheal airwayFinal Endotracheal Airway: ETT and reinforced tubeTechnique Used: Video laryngoscopyLaryngoscope Blade/Videolaryngoscope Blade Size: 3ETT Size (mm): 7.0Measured from: LipsETT to Lips (cm): 21Placement Verified by: CO2 detection, direct visualization and equal breath sounds Laryngoscopic view: Grade I - full view of glottisRapid Sequence Induction (RSI): No Modified RSI: No Numberof Attempts at Approach: [place] MethodistECG 12 axvz9346-96-85 08:57:29 Test Item Value Reference Range Interpretation Comments Ventricular rate (test 78 code = 253) Atrial rate (test code 78 = 255) IA interval (test code 136 = 266) QRSD interval (test 90 code = 260) QT interval (test code 402 = 264) QTC interval (test code 458 = 265) P axis 1 (test code = 51 267) QRS axis 1 (test code = -45 268) T wave axis (test code -5 = 270) EKG impression (test Normal sinus code = 273) rhythm-Possible Left atrial enlargement-Left anterior fascicular block-Left ventricular hypertrophy-Nonspecifi c ST abnormality-Abnormal ECG-In automated comparison with ECG of 17-APR-2015 11:02,-No significant change was found- [place] FreireUrine bkhapdu3546-83-77 20:16:08 Test Item Value Reference Range Interpretation Comments Urine culture Mixed nadege Specimen isolate (test <=10-3 col/cc InformationSp ecimen code = 90585-5) Source: Urin eSpecimen Site: Clean cat [facility] MethodistGram fanbg1100-18-58 20:16:08 Test Item Value Reference Range Interpretation Comments Gram stain No WBC's or Specimen result (test organisms seen. InformationS pecimen code = 664-3) Source: UrineS pecimen Site: Clean cat aria [facility] MethodistUrinalysis screen and microscopy, with reflex to culture 2019-06-26 17:32:36 Test Item Value Reference Range Interpretation Comments Specimen site (test code = Clean catch 0552327) Color, UA (test code = 5778-6) Yellow Appearance, UA (test code = Clear 5767-9) Specific gravity, UA (test code = 1.023 1.001-1.035 5811-5) pH, UA (test code = 5803-2) 5.0 5.0-8.5 Protein, UA (test code = 34097-4) 1+ Negative A Glucose, UA (test code = 70333-6) Negative Negative Ketones, UA (test code = 2514-8) Negative Negative Bilirubin, UA (test code = Negative Negative 5770-3) Blood, UA (test code = 5794-3) Negative Negative Nitrite, UA (test code = 5802-4) Negative Negative Urobilinogen, UA (test code = <2.0 <2.0 82297-1) Leukocyte esterase, UA (test code Trace Negative A = 5799-2) Epithelial cells, UA (test code = 1 /HPF 5787-7) WBC, UA (test code = 5821-4) 2 0- 4 /HPF RBC, UA (test code = 48962-6) <1 0- 5 /HPF Bacteria, UA (test code = Few None seen 27861-9) Yeast, UA (test code = 29777-0) None seen Yeast with pseudohyphae, UA (test None seen code = 45301-5) Hyaline casts, UA (test code = 4 /LPF 5796-8) Lab Interpretation (test code = Abnormal 88231-3) [facility] MethodistPartial thromboplastin time, kcukqejsy5052-32-81 17:05:17 Test Item Value Reference Range Interpretation Comments PTT (test code = 32.5 23.0- 36.0 [place] [address]-5) unfractionated heparin is61.0-112.0 se conds which corresponds to Anti-Xa0.3-0.7 U/ml. [place] MethodistProthrombin time with [id number] 17:05:05 Test Item Value Reference Range Interpretation Comments Prothrombin time (test 12.5 11.5- 14.5 sec code = 5902-2) INR (test code = 1.0 [facility] 00754-2) Normalized Rati o (INR) is a therapeutic m onitoring tool for patien ts who are stable on oral anticoagulant t herapy. An INR of 2.0-3.0 is suggested for d eep vein thrombosis/pulm onary embolism. [place] BeehulwmoAPSK6084-74-31 15:16:00 RUN DATE: 06/19/19 [facility] - LAB PAGE 1 RUN TIME: 1516 Specimen Inquiry RUN USER: INTERFACE PATIENT: KRISTA MCCALL LOC: YULIA U #: [id number] AGE/SX: 68/F ROOM: RE06/18/19REG DR: Nahid Duval MD : 50 BED: DIS: [place] [facility] [place] SPEC #: [id number] RECD: 06/18/19 STATUS: DEBBIE ALCAZAR #: [id number] WILFRIDO: 06/18/[address] [facility] [address]: Nahid Duval MD ENTERED: 06/18/19 SP TYPE: SURG OTHR DR: Kay Dudley DO ORDERED: SURG PATH LVL 10/16 COPIES TO: Nahid Duval MD [address] [place] [address] Kay Dudley DO [address] [place] [address] [id number]: TISSUE ID BLK PCS SHYANNE LEV PROCEDURE DISPOSITION ____ ___ ___ ___ JEJUNUM, NOS A 1 2 STOMACH, NOS B 1 2 PROCEDURES: SURG PATH LVL 4 (06/18/19) TISSUES: A. JEJUNUM, NOS - JEJUNUM BIOPSY NEAR ULCER B. STOMACH, NOS - STOMACH BIOPSY CLINICAL HISTORY JEJUNAL ULCER -K28.9; GASTRIC ULCER -K25.9 CPT CODES CPT CODE(S): 20665A2 , 67745 , 89662 , , , , FINAL DIAGNOSIS A. Small intestine, jejunum, biopsy: PATCHY ACUTE ENTERITIS B. Stomach, biopsy: MILD CHRONIC GASTRITIS NEGATIVE FOR INTESTINAL METAPLASIA, DYSPHASIA, OR MALIGNANCY NEGATIVE FOR HELICOBACTER PYLORI ORGANISMS CONTINUED ON NEXT PAGE RUN DATE: 06/19/19 [facility] PAGE 2 RUN TIME: 1516 Specimen Inquiry RUN USER: INTERFACE SPEC #: [facility]:[id number] PATIENT: KRISTA MCCALL #[id number] (Continued) GROSS DESCRIPTION A. Jejunum biopsy. Received in formalin are threetan tissue fragments, 0.1 - 0.2 cm, all as A. B. Gastric biopsy. Received in formalin is atan tissue fragment, 0.4 cm, all as B. ba/nr Grossing performed at [facility] Pathology, [address] [facility], [address], [place] [address]. Grave Cleaner: Jason Spain M.D. MICROSCOPIC DESCRIPTION A. Jejunum biopsy. Sections demonstrate small bowel with patchy villous blunting and associated acute inflammatory cells. No dysplasia or malignancy is identified. The features are consistent with patchy acute enteritis. B. Gastric biopsy. Sections demonstrate gastric mucosa with mild chronic inflammation. No dysplasia or malignancy is identified. Possible PAS confirms the absence of intestinal metaplasia. The Diff Quik stain demonstrates no evidence of Helicobacter pylori organisms. Signed SIGNATURE ON FILE Javier Lares 06/19/19 1516 END OF REPORT Hemoglobin [id number] 19:43:00 Test Item Value Reference Interpretation Comments Range Hemoglobin A1C 5.9 <5.7 % of H For someone belem kingsley (test code = total Hgb known diabetes, a 4548-4) hemoglobin A1c value between 5.7% an d 6.4% is consist ent withprediabetes and should be confi rmed with a follow-u p test. For someo allie with known diab etes, a value <7%indicates that their diabetes is well controlled . U9dlbpevtk shou ld be individualized based on duration ofdiabetes, age , comorbid condit ions, and otherconsiderat ions. This assay resu lt is consistent with an increased risko f diabetes. Ivanna ntly, no consensus ex ists regarding use ofhemoglobin A1 c for diagnosis of diabetes for children. KAEL (test code = FASTING:YESFASTIN KAEL) G: YES RAC (test code = Performing RAC) Organization Information: Site ID: [facility] Name: [place] [facility] Address: [address] [place] [phone] Director: Franky Galvez Lab Interpretation Abnormal (test code = 88383-7) [facility] [place], TXIjwkugqlfSMTU1534-08-09 14:19:00 RUN DATE: 03/14/19 [facility] - LAB *LIVE* PAGE 1 RUN TIME: 1420 Specimen Inquiry RUN USER: INTERFACE PATIENT: KRISTA MCCALL LOC: CASS U #: [id number] AGE/SX: 68/F ROOM: RE03/11/19REG DR: Blas Loredo MD : 50 BED: DIS: [place] [facility] [place] SPEC #: [id number] RECD: 03/11/19 STATUS: DEBBIE RERukhsana #: [id number] WILFRIDO: 03/11/[address] [facility] [address]: Blas Loredo MD ENTERED: 03/11/19 SP TYPE: SURG OTHR DR: Kay Dudley DO ORDERED: AB/PAS YING, SURG PATH LVL 10/16, PATH STAIN GROU COPIES TO: Blas Loredo MD [address] [place] [address] Kay Dudley DO [address] [facility] [address] [place] [id number] [phone]: TISSUE ID BLK PCS SHYANNE LEV PROCEDURE DISPOSITION ____ ___ ___ ___ JEJUNUM, NOS A 1 2 STOMACH, NOS B 1 1 AB/PAS YING STOMACH, NOS B 1 2 PATH STAIN GROU PROCEDURES: ALBLUE (03/11/19- 1305) PAS (03/11/19-1305) SURG PATH LVL 4 (03/11/19-1305) PATH STAIN GROU (03/11/19-1305) TISSUES: A. JEJUNUM, NOS - JEJUNUM BIOPSY B. STOMACH, NOS - GASTRIC STUMP BIOPSY CLINICAL HISTORY LG LIVER -R16.10; NAUSEA -R11.10; HEARTBURN -R12; R11.10 CPT CODES CPT CODE(S): 57621R2 , 71934 , 93537 , , , , FINAL DIAGNOSIS A. Small intestine, jejunum, biopsy: SMALL BOWEL WITH UNREMARKABLE VILLI B. Stomach, stump,biopsy: CONTINUED ON NEXT PAGE RUN DATE: 03/14/19 [facility] - LAB *LIVE* PAGE 2 RUN TIME: 1420 Specimen Inquiry RUN USER: INTERFACE SPEC #: [id number]:[id number] PATIENT: CALKRISTA #[id number] (Continued) -- FINAL DIAGNOSIS (Continued) MILD CHRONIC GASTRITIS NEGATIVE FOR INTESTINAL METAPLASIA, DYSPLASIA, OR MALIGNANCY NEGATIVE FOR HELICOBACTER PYLORI ORGANISMS GROSS DESCRIPTION A. Jejunumbiopsy. Received in formalin are three jaramillo tissue fragments, 0.2 - 0.3 cm, all as A. B. Gastric stump biopsy. Received in formalin are two jaramillo tissue fragments, 0.5 and 0.8 cm, all as B. ba/nr Grossing performed at [facility] Pathology, [address] [facility], [address], [place] [address]. Grave Cleaner: Jason Spain M.D. MICROSCOPIC DESCRIPTION A. Jejunum biopsy. Sections demonstrate small bowel with no evidence of significant inflammation. Unremarkable villi are identified. No dysplasia or malignancy is identified. B. Gastric stump biopsy. Sections demonstrate gastric mucosa with mild chronic inflammation. No dysplasia or malignancy is identified. Alcian blue-PAS confirms the absence of intestinal metaplasia. Diff Quik stain demonstrates no evidence of Helicobacter pylori organisms. Signed SIGNATURE ON FILE ZarabobJavier M 03/14/19 1419 END OF REPORT
[2020-01-08 18:16] VITALS: BP 146/66; TEMP 98.6; O2SAT 99
== END 2020-01-08 14:46 | disposition left against medical advice (07) ==
LOC: ER 13:52
DX: I10 Essential (primary) hypertension (principal); Z88.5 Allergy status to narcotic agent; Z88.2 Allergy status to sulfonamides
CPT/HCPCS: 99281